=== PATIENT | male | born 1970 | race Caucasian/White ===

== ENCOUNTER 2023-05-10 15:54 | Emergency (ER) | payer SELFPAY ==
--- OUTSIDE RECORDS SUMMARY | 2023-05-10 15:57 | XMS REPORT | Continuity of Care Document ---
:1970 Author Organization [facility] t Address [address] [facility] [address] [place] [address] Care Team Providers Name Role Phone PCP, PATIENT DOES NOT HAVE A Primary Care Physician UnavailAlfredo Servin MD Attending Clinician ALFREDO SALGUERO Attending Clinician Unavailable Cosmo NG, Sendhayden K.HCarmen Attending Clinician Doctor Unassigned, [place] Attending Clinician Unavailable AARON GAFFNEY Attending Clinician Unavailable Aaron Gaffney DO Attending Clinician JEFFERSON GOMEZ Attending Clinician Unavailable JEFFERSON GOMEZ Attending Clinician Unavailable Jefferson Gomez MD Attending Clinician [facility], [facility] Neurology Continuity Attending Clinician Unavail Kiana Staples Attending Clinician ALFREDO SALGUERO Admitting Clinician Unavailable AARON GAFFNEY Admitting Clinician Unavailable JEFFERSON GOMEZ Admitting Clinician Unavailable Payers Payer Name Policy Type Policy Number Effective Date Expiration Date S lexie [employer] [id number] 2017 CARE 00:00:00 [place] [employer]. I H C [id number] 2014 00:00:00 Problems Condition Condition Condition Status Onset Resolution Last Treating Co mments Source Name Details Category Date Date Treatment Clinician Date Encounter Encounter Disease Active Overview: Univers for for 2-12 Formattin ity of screening screening 00:00: [place] of [place] colonoscop colonoscop 00 note Me dical y y might be Branch different from the original. 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[place]ose[place] Allergies, Adverse Reactions, Alerts Allergy Allergy Status Severity Reaction(s) Onset Inactive Treating Comm ents Source Name Type Date Date Clinician NO KNOWN Drug Active Univers ALLERGIE Class ity of S [facility] Social History Social Habit Start Date Stop Date Quantity Comments Source History of tobacco Cigarette Smoker University of use [facility] Gender identity Universit y of [facility] Sexual orientation Univer sity of [facility] Alcohol intake 2023-03-09 2023-03-09 Current University of 00:00:00 00:00:00 non-drinker of [facility] alcohol [place] (finding) Exposure to 2023-01-11 2023-01-21 Not sure [facility] SARS-CoV-2 (event) 00:00:00 14:28:00 [facility] History of Social 2020-01-29 2020-01-29 Univers ity of function 00:00:00 00:00:00 [facility] Tobacco use and 2018-11-17 2018-11-17 Smokeless Universit y of exposure 00:00:00 00:00:00 tobacco non-user [facility] dical Branch Cigarettes smoked 2018-11-17 2018-11-17 Univers ity of current (pack per 00:00:00 00:00:00 ) - Reported Branch Tobacco Comment 2018-11-17 2018-11-17 vapes Universit y of 00:00:00 00:00:00 [facility] Sex Ass[birth year] At [birth year] Universit y of 00:00:00 00:00:00 [facility] Smoking Status Start Date Stop Date Source Unknown if ever smoked Universit y of [facility] Smokes tobacco daily 2018-11-17 00:00:00 [facility]ations Ordered Filled Start Stop Current Ordering Indication Dosage Frequency Signature Comments Components Source Medication Medication Date Date Medication? Clinician (SIG) Name Name losartan 50 Yes 50mg Take 1 Univ ers mg tablet 6-27 tablet by ity o f 14:22: mouth in [place] [address] the Medical morning. 2 Branch tablets in AM losartan 50 Yes 50mg Take 1 Univ ers mg tablet 6-27 tablet by ity o f 14:22: mouth in [place] [address] the Medical morning. 2 Branch tablets in AM losartan 50 0 Yes 50mg Take 1 Univ ers mg tablet 6-27 tablet by ity o f 14:22: mouth in [place] [address] the Medical morning. 2 Branch tablets in AM losartan 50 Yes 50mg Take 1 Univ ers mg tablet 6-27 tablet by ity o f 14:22: mouth in [place] [address] the Medical morning. 2 Branch tablets in AM NaCl 0.9% 1000mL at 999 Uni vers (NS) bolus 01-21 05-11 mL/hr, ity of infusion 19:30: 21:40 1,000 mL, Yves as 1,000 mL 00 :00 IV Medical Infusion, Branch ONCE, 1 dose, On [place] 01/21/23 at 1430, STAT ibuprofen 2018- Yes Take by Unive rs (MOTRIN 0-24 mouth. ity of ORAL) 18:50: [address] ibuprofen 2018- Yes Take by Unive rs (MOTRIN 0-24 mouth. ity of ORAL) 18:50: [address] ibuprofen 2018- Yes Take by Unive rs (MOTRIN 0-24 mouth. ity of ORAL) 18:50: [address] ibuprofen 2018- Yes Take by Unive rs (MOTRIN 0-24 mouth. ity of ORAL) 18:50: [address] ibuprofen 2018- Yes Take by Unive rs (MOTRIN 0-24 mouth. ity of ORAL) 18:50: [address] ibuprofen 2018- Yes Take by Unive rs (MOTRIN 0-24 mouth. ity of ORAL) 18:50: [address] ibuprofen 2019- Yes Take by Unive rs (MOTRIN 0-24 mouth. ity of ORAL) 18:50: [address] ibuprofen 2018-09 Yes Take by Unive rs (MOTRIN 0-24 mouth. ity of ORAL) 18:50: [address] ibuprofen 2018-09 Yes Take by Unive rs (MOTRIN 0-24 mouth. ity of ORAL) 18:50: [address] ibuprofen 2018-09 Yes Take by Unive rs (MOTRIN 0-24 mouth. ity of ORAL) 18:50: [address] ibuprofen 2018-09 Yes Take by Unive rs (MOTRIN 0-24 mouth. ity of ORAL) 18:50: [address] ibuprofen 2018-09 Yes Take by Unive rs (MOTRIN 0-24 mouth. ity of ORAL) 13:50: [address] ibuprofen 2018-09 Yes Take by Unive rs (MOTRIN 0-24 mouth. ity of ORAL) 13:50: [address] ibuprofen 2018-09 Yes Take by Unive rs (MOTRIN 0-24 mouth. ity of ORAL) 13:50: [address] ibuprofen 2018-09 Yes Take by Unive rs (MOTRIN 0-24 mouth. ity of ORAL) 13:50: [address] ibuprofen 2018-09 Yes Take by Unive rs (MOTRIN 0-24 mouth. ity of ORAL) 13:50: [address] ibuprofen 2018-09 Yes Take by Unive rs (MOTRIN 0-24 mouth. ity of ORAL) 13:50: [address] ibuprofen 2018-09 Yes Take by Unive rs (MOTRIN 0-24 mouth. ity of ORAL) 13:50: [address] ibuprofen 2018-09 Yes Take by Unive rs (MOTRIN 0-24 mouth. ity of ORAL) 13:50: [address] escitalopra 2018-09 Yes 10mg Take 10 mg Univers m oxalate 0-17 by mouth ity of 10 mg 00:00: daily. [place] tablet 00 [facility] escitalopra 2018-09 Yes 10mg Take 10 mg Univers m oxalate 0-17 by mouth ity of 10 mg 00:00: daily. [place] tablet 00 [facility] escitalopra 2018-09 Yes 10mg Take 10 mg Univers m oxalate 0-17 by mouth ity of 10 mg 00:00: daily. [place] tablet 00 [facility] escitalopra 2018-09 Yes 10mg Take 10 mg Univers m oxalate 0-17 by mouth ity of 10 mg 00:00: daily. [place] tablet 00 [facility] escitalopra 2018-09 Yes 10mg Take 10 mg Univers m oxalate 0-17 by mouth ity of 10 mg 00:00: daily. [place] tablet 00 [facility] escitalopra 2018-09 Yes 10mg Take 10 mg Univers m oxalate 0-17 by mouth ity of 10 mg 00:00: daily. [place] tablet [facility] escitalopra 2018-09 Yes 10mg Take 10 mg Univers m oxalate 0-17 by mouth ity of 10 mg 00:00: daily. [place] tablet [facility] escitalopra 2018-09 Yes 10mg Take 10 mg Univers m oxalate 0-17 by mouth ity of 10 mg 00:00: daily. [place] tablet [facility] escitalopra 2018-09 Yes 10mg Take 10 mg Univers m oxalate 0-17 by mouth ity of 10 mg 00:00: [facility]. [place] [facility] Take 10 mg Univers m oxalate 0-17 by mouth ity of 10 mg 00:00: daily. [place] tablet [facility] escitalopra 2018-09 Yes 10mg Take 10 mg Univers m oxalate 0-17 by mouth ity of 10 mg 00:00: daily. [place] [facility] Yes 10mg Take 10 mg Univers m oxalate 0-17 by mouth ity of 10 mg 00:00: daily. [place] [facility] Yes 10mg Take 10 mg Univers m oxalate 0-17 by mouth ity of 10 mg 00:00: daily. [place] tablet [facility] escitalopra 2018-09 Yes 10mg Take 10 mg Univers m oxalate 0-17 by mouth ity of 10 mg 00:00: daily. [place] tablet [facility] escitalopra 2018-09 Yes 10mg Take 10 mg Univers m oxalate 0-17 by mouth ity of 10 mg 00:00: daily. [place] tablet 00 [facility] escitalopra 2018-09 Yes 10mg Take 10 mg Univers m oxalate 0-17 by mouth ity of 10 mg 00:00: daily. [place] tablet 00 [facility] escitalopra 2018-09 Yes 10mg Take 10 mg Univers m oxalate 0-17 by mouth ity of 10 mg 00:00: daily. [place] tablet Medical Branch escitalopra 2018-09 Yes 10mg Take 10 mg Univers m oxalate 0-17 by mouth ity of 10 mg 00:00: daily. [place] tablet [facility] Branch escitalopra 2018-09 Yes 10mg Take 10 mg Univers m oxalate 0-17 by mouth ity of 10 mg 00:00: daily. [place] tablet [facility] ibuprofen Yes Take by Unive rs (MOTRIN 3-11 mouth. ity of ORAL) 19:26: [place] [address] Medical Branch FLUoxetine Yes [id number] 80mg Take 2 U nivers 40 mg 9-20 capsules ity of capsule 00:00: by mouth [place] daily. Medical Branch No known No Univers medications ity [facility] No known No [facility] Vital Signs Vital Name Observation Time Observation Value Comments Source Systolic blood 2023-03-09 19:19:00 112 mm[Hg] Univer sity of [facility] Diastolic blood 2023-03-09 19:19:00 69 mm[Hg] Unive rsity of [facility] Heart rate 2023-03-09 19:19:00 104 /min [facility] Body temperature 2023-03-09 19:19:00 36 [place] [facility] Body height 2023-03-09 19:19:00 193 cm [facility] Body weight 2023-03-09 19:19:00 180.532 kg per pt [facility] BMI 2023-03-09 19:19:00 48.45 kg/m2 [facility] Oxygen saturation in 2023-03-09 19:19:00 95 /min [facility] Arterial blood by [facility] Pulse oximetry Branch Systolic blood 2023-01-21 23:00:00 159 mm[Hg] Univer sity of [facility] Diastolic blood 2023-01-21 23:00:00 100 mm[Hg] Unive rsity [facility] Heart rate 2023-01-21 23:00:00 81 /min [facility] Respiratory rate 2023-01-21 23:00:00 14 /min [facility] in 2023-01-21 23:00:00 95 /min University of Arterial blood by [place] [facility] Pulse oximetry Branch Body temperature 2023-01-21 19:29:00 37.17 Chelo Univ ersity of [place] Medical [place] Body height 2023-01-21 19:29:00 193 cm Universi ty of [place] [facility] Body weight 2023-01-21 19:29:00 180.532 kg Universi ty of [place] [facility] BMI 2023-01-21 19:29:00 48.45 kg/m2 Universi ty of [place] [facility] Systolic blood 2020-01-29 16:02:00 141 mm[Hg] Univer sity of pressure [place] [facility] Diastolic blood 2020-01-29 16:02:00 85 mm[Hg] Unive rsity of pressure [place] [facility] Heart rate 2020-01-29 16:02:00 95 /min Universi ty of [place] [facility] [place] Body temperature 2020-01-29 16:02:00 37 Chelo Univ ersity of [place] [facility] Respiratory rate 2020-01-29 16:02:00 20 /min Univ ersity of [place] [facility] [place] Body height 2020-01-29 16:02:00 193 cm Universi ty of [place] [facility] Body weight 2020-01-29 16:02:00 147.589 kg Universi ty of [place] [facility] BMI 2020-01-29 16:02:00 39.61 kg/m2 Universi ty of [place] [facility] Systolic blood 2019-10-09 20:50:00 137 mm[Hg] Univer sity of [facility] [place] [facility] Diastolic blood 2019-10-09 20:50:00 87 mm[Hg] Unive rsity of pressure [place] [facility] Heart rate 2019-10-09 20:48:00 100 /min Universi ty of [place] [facility] Respiratory rate 2019-10-09 20:48:00 18 /min Univ ersity of [place] [facility] Body height 2019-10-09 20:48:00 193 cm Universi ty of [place] [facility] Body weight 2019-10-09 20:48:00 149.233 kg Universi ty of [place] [facility] BMI 2019-10-09 20:48:00 40.05 kg/m2 Universi ty of [place] [facility] Oxygen saturation in 2019-10-09 20:48:00 96 /min University of Arterial blood by [facility] Pulse oximetry Branch Procedures Procedure Date / Time Performing Clinician Source Performed CONSENT/REFUSAL FOR 2023-03-09 18:58:21 Doctor Tay [facility] DIAGNOSIS AND TREATMENT [place] [facility] TROPONIN I 2023-01-21 21:42:00 Singer [facility] XR CHEST 1 VW 2023-01-21 20:24:03 Singer [facility] LIPASE 2023-01-21 19:40:00 Singer [facility] MAGNESIUM 2023-01-21 19:40:00 Singer [facility] TROPONIN I 2023-01-21 19:40:00 Singer [facility] COMP. METABOLIC PANEL 2023-01-21 19:40:00 Aaron Gaffney [facility] ([id number]) Medical [place] CBC WITH DIFF 2023-01-21 19:40:00 Singer [facility] N-TERMINAL PRO-BNP 2023-01-21 19:40:00 Singer Aaron [facility] Medical [place] CONSENT/REFUSAL FOR 2023-01-21 19:23:27 Doctor Tay [facility] DIAGNOSIS AND TREATMENT [place] [facility] AUTHORIZATION FOR RELEASE 2022-07-13 05:01:00 Doctor Tay [facility] OF [facility] [place] [facility] MR BRAIN WO CONTRAST 2019-12-14 14:33:01 Jefferson Gomez [facility] Medical [place] ASSIGNMENT OF BENEFITS 2019-12-14 13:42:18 Doctor Tay [facility] [place] [facility] AUTHORIZATION TO RELEASE 2019-07-19 06:01:00 Doctor Tay [facility] PHI TO [facility] [place] [facility] OP CORRESPONDENCE 2019-05-10 05:01:00 Doctor Jasvir [facility] [place] [facility] BCPC - SUBSEQUENT 2014-10-25 06:01:00 Doctor Tay [facility] ENCOUNTER [place] [facility] PATIENT QUESTIONNAIRE 2013-10-25 06:01:00 Doctor Jasvir [facility] [place] [facility] Encounters Start End Encounter Admission Attending Care Care Encounter Source Date/Time Date/Time Type Type Clinicians Facility Department ID 2023-05-10 2023-05-10 Outpatient SFA SFA [id number] Vik[place] 14:42:57 14:42:57 [id number] F [place] 2023-04-21 2023-04-21 Outpatient [facility] Vikas 14:22:40 14:22:40 [id number] F [place] 2023-04-07 2023-04-07 Outpatient [facility] Vikas 14:20:33 14:20:[id number] [facility] 2023-03-29 2023-03-29 Telephone [facility] [id number] Univers 00:00:00 00:00:00 Alfredo GALVEZ [id number] ity of [place] [id number] Ma dical NAL [address] [place] [address] 2023-03-25 2023-03-25 Outpatient R [facility] [id number] Univers 14:00:00 23:59:00 ALFREDO lopez o [facility] 2023-03-25 2023-03-25 Telephone [facility] [id number] [facility] 00:00:00 00:00:00 Sendhayden GALVEZ [id number] ity of [id number] [phone] Ma dical NAL [address] [place] [address] 2023-03-18 2023-03-18 Outpatient [facility] Vikas 10:55:08 10:55:[id number] [facility] 2023-03-17 2023-03-17 Outpatient [facility] Vikas 14:41:44 14:41:[id number] [facility] 2023-03-09 2023-03-09 Office [facility] [id number] Univers 14:20:00 14:40:00 Visit Alfredo GALVEZ [id number] ity [place] [id number] Ma dical NAL [address] [place] [address] 2023-03-09 2023-03-09 Outpatient R [facility] [id number] Univers 14:20:00 14:20:00 ALFREDO lopez o f [facility] 2023-03-09 2023-03-09 Orders Doctor MEY [id number] Univers 00:00:00 00:00:00 Only Unassigned, ARNALDO [id number] ity of [place] [facility] 4.2.7.2.686 Yves as [phone] [facility] 009 [place] 2023-03-03 2023-03-03 Outpatient SFA [facility] Vikas 11:47:52 11:47:52 [id number] F [place] 2023-02-15 2023-02-15 Outpatient SFA [facility] Vikas 14:42:45 14:42:45 [id number] F [place] 2023-02-10 2023-02-10 Outpatient SFA [facility] Vikas 10:11:18 10:11:18 [id number] F [place] 2023-01-26 2023-01-26 [facility] [id number] Univers 00:00:00 00:00:00 Alfredo GALVEZ 350.1.13.10 ity [facility] 4[place].2.[place] [facility] [id number] Ma dic[address] 2023-01-21 2023-01-21 Emergency X [facility] ERT [id number] Univers 14:25:00 18:17:00 AARON lopez of [facility] 2023-01-21 2023-01-21 Emergency [facility] [id number] Univers 14:25:00 18:17:00 Aaron GALVEZ 350.1.13.10 i ty [facility] [place]2.[place].2.[place] [id number] [facility] 084 [place] 2023-01-21 2023-01-21 Outpatient SFA [facility] [id number] Vikas 13:15:32 13:15:32 [id number] F [place] 2023-01-07 2023-01-07 Outpatient SFA [facility] Vikas 13:34:22 13:34:22 [id number] F [place] 2023-01-062023-01-06 Outpatient SFA [facility] [id number] Vikas 13:21:58 13:21:58 [id number] F Raj 2022-12-30 2022-12-30 Outpatient SFA [facility] Vikas 10:50:22 10:50:22 [id number] F Raj 2022-12-08 2022-12-08 Outpatient JEFFERSON COOK [facility] [id number] Univers 16:20:00 16:20:00 JEFFERSON GOMEZ claire [facility] 2022-07-13 2022-07-13 Orders Doctor MEY [id number] Univers 00:00:00 00:00:00 Only Unassigned, ARNALDO 350.1.13.10 ity of [place] [facility] 4.2.7.2.686 Yves as [phone] [facility] 009 Branch 2020-01-29 2020-01-29 Office Patricia [facility] [id number] Univers 07:57:01 12:07:20 Visit Jefferson Galvez 350.1.13.10 ity [facility] [place] [phone] Ma dical [facility] 092 Branch [facility] 2020-01-29 2020-01-29 Outpatient JEFFERSON COOK [facility] [id number] Univers 11:00:00 11:00:00 JEFFERSON GOMEZ [facility] 2020-01-03 2020-01-03 Letter Clinic, [facility] UNIVERSIT [id number] Univers 00:00:00 00:00:00 (Out) Neurology Y HEALTH 350.1.13.10 ity of [facility] 4.2.7.2.686 [place] [id number] [facility] 092 Branch 2019-12-29 2019-12-29 Telephone Kiana Jesus 1.2.840.114 [id number] Univers 00:00:00 00:00:00 [facility] 350.1.13.10 it y of [place]2.[place] [id number] [facility] 362 Branch 2019-12-14 2019-12-14 Outpatient Mauro JEFFERSON GOMEZ [facility] [id number] Univers 08:45:02 23:59:00 JEFFERSON GOMEZ itclaire [facility] 2019-12-14 2019-12-14 [facility] [id number] Univers 08:45:00 23:59:00 Encounter Jefferson Dick Galvez 350.1.13.10 ity of [place].2.[place] [id number] [facility] 804 Branch 2019-12-14 2019-12-14 Outpatient R JEFFERSON GOMEZ [facility] [id number] Univers 00:00:00 00:00:00 JEFFERSON GOMEZ ananyaclaire [facility] 2019-12-14 2019-12-14 Orders Doctor MEY 1.2.840.114 [id number] Univers 00:00:00 00:00:00 Only Unassigned, ARNALDO 350.1.13.10 ity of [place] [facility] 4.2.7.2.686 Yves as [phone] [facility] 009 Branch 2019-11-01 2019-11-01 [facility]phone [facility] [id number] Univers 00:00:00 00:00:00 Jefferson Galvez 350.1.13.10 ity of [place] Profess[place] [phone] Ma dical nal 092 [facility] 2019-10-09 2019-10-09 Office Patricia [facility] [id number] Univers 14:30:13 15:06:02 Visit Jefferson Galvez 350.1.13.10 ity of [place] Profess[place] [id number] Ma dical nal 092 [facility] 2019-09-27 2019-09-27 Telephone Kiana Jesus 1.2.840.114 [id number] Univers 00:00:00 00:00:00 [facility] 350.1.13.10 it y of [place] [id number] [facility] 362 Branch 2019-07-19 2019-07-19 Orders Doctor MEY 1.2.840.114 [id number] Univers 00:00:00 00:00:00 Only Unassigned, ARNALDO 350.1.13.10 ity of [place] [facility] 4.2.7.2.686 Yves as [phone] [address] 2019-05-10 2019-05-10 Orders Doctor MEY 1.2.840.114 [id number] Univers 00:00:00 00:00:00 Only Unassigned, ARNALDO 350.1.13.10 ity of [place] [facility] 4.2.7.2.686 Yves as [phone] [address] 2014-10-25 2014-10-25 Orders Doctor MEY 1.2.840.114 [id number] Univers 00:00:00 00:00:00 Only Unassigned, ARNALDO 350.1.13.10 ity of [place] [facility] 4.2.7.2.686 Yves as [phone] [address] 2013-10-25 2013-10-25 Orders Doctor MEY Bone.2.840.114 [id number] Univers 00:00:00 00:00:00 Only Unassigned, ARNALDO 350.1.13.10 ity of [place] [facility] 4.2.7.2.686 Yevs as [phone] [address] Results Test Description Test Time Test Comments Results Result Comments Source COMPREHENSIVE METABOLIC PANEL 2023-02-16 05:24:18 Test Item Value Reference Range Interpretation Comme nts GLUCOSE (test code = 2217) 98 MG/DL 70-99 BUN (test code = 2208) 26 MG/DL 6-20 H CREATININE (test code = 0.79 MG/DL 0.80-1.40 L 2213) eGFR (2020 CKD-EPI) (test 106 ML/MIN/1.73 >60 code = 94753) CALC BUN/CREAT (test code = 33 RATIO 6-28 H 2234) SODIUM (test code = 2231) 143 MEQ/L 133-146 POTASSIUM (test code = 4.2 MEQ/L 3.5-5.4 2227) CHLORIDE (test code = 2215) 102 MEQ/L 95-107 CARBON DIOXIDE (test code = 32 MEQ/L 19-31 H 2205) CALCIUM (test code = 2209) 10.0 MG/DL 8.5-10.5 PROTEIN, TOTAL (test code = 7.1 G/DL 6.1-8.3 2228) ALBUMIN (test code = 2201) 4.6 G/DL 3.5-5.2 CALC GLOBULIN (test code = 2.5 G/DL 1.9-3.7 2240) CALC A/G RATIO (test code = 1.8 RATIO 1.0-2.6 2234) BILIRUBIN, TOTAL (test code 0.3 MG/DL See_Comment [Automated message] The = 2207) system which [employer] nerated this result transmit yuriy reference range: <=1.2. T he reference range was not u sed to interpret this result as normal/abnormal . ALKALINE PHOSPHATASE (test 102 U/L 40-121 code = 2204) AST (test code = 2218) 16 U/L 9-50 ALT (test code = 2219) 16 U/L 5-50 UNLE SS OTHERWISE INDICATED, ALL TESTING PER FORMED AT CLINICAL PATHOL [employer], [facility]. [address] [place] [address] LABORATORY DIRE CTOR: CURT BREWER M.D. CLIA NUMBER [id number] CAP ACCREDITATION N O. [id number] MR BRAIN WO [id number] 14:49:49 Stable MRI compared to multiple prior exams without acute intracranialfinding such as acute ischemia, intracranial hemorrhage or mass effect.HISTORY:unexplained spells TECHNIQUE: MRI of the brain was performed without IV contrast. COMPARISON: Multiple prior exams including the most recent from 12/15/2016. FINDINGS: A small T2 hyperintense lesion in the left frontal lobe (8:17) prior exam.This could represent a perivascular space or a subcentimeter neural glialcyst. Punctate foci of T2/FLAIR hyperintensity are noted in the white matter ofthe frontal lobes bilaterally and the left insula, unchanged from the priorMRI. The ventricles and sulci are within normal limits for patient's age. A small CSF intensity is noted in the retrocerebellar location, measuringapproximately 1.8 cm in thickness. This is unchanged from at least04/23/2016. There is no midline shift. The basal cisterns are preserved. There is nodiffusion restriction to suggest an acute infarct. No pathologicalextra-axial fluid collection is seen. No abnormal foci of gradient bloomingis identified. Soft tissue lipoma incidentally identified in the leftsuboccipital region, unchanged from the last MRI. Mamb, Radiant Results Inft User - 12/14/2019 9:50 AM CDTHISTORY:unexplained spells TECHNIQUE: MRI of the brain was performed without IV contrast.COMPARISON: Multiple prior exams including the most recent from 12/15/2016.FINDINGS: A small T2 hyperintense lesion in the left frontal lobe (8:17) prior exam.This could represent a perivascular space or a subcentimeter neural glialcyst.Punctate foci of T2/FLAIR hyperintensity are noted in the white matter ofthe frontal lobes bilaterally and the left insula, unchanged from the priorMRI.The ventricles and sulci are within normal limits for patient's age.A small CSF intensity is noted in the retroce rebellar location, measuringapproximately 1.8 cm in thickness. This is unchanged from at least04/23/2016.There is no midline shift. The basal cisterns are preserved. There is nodiffusion restriction to suggest an acute infarct. No pathologicalextra-axial fluid collection is seen. No abnormal foci of gradient bloomingis identified. Soft tissue lipoma incidentally identified in the leftsuboccipital region, unchanged from the last MRI.IMPRESSIONStable MRI compared to multiple prior exams without acute intracranialfinding such as acute ischemia, intracranial hemorrhage or mass effect.[facility]
--- NOTE | 2023-05-10 17:33 | RAD REPORT ---
EXAM DESCRIPTION: CT - Head Brain Wo Cont - 05/10/2023 5:13 pm CLINICAL HISTORY: SEIZURE Headache, hypertension COMPARISON: HEAD BRAIN W O CONTRAST dated 03/10/2010 TECHNIQUE: All CT scans are performed using dose optimization technique as appropriate and may inclu de automated exposure control or mA/KV adjustment according to patient size. FINDINGS: No intracranial hemorrhage, hydrocephalus or extra-axial fluid collection.No areas of brai n edema or evidence of midline shift. 2 cm mucous retention cyst or polyp left maxillary antrum. Paranasal sinuses and mastoids are otherwi se clear. The calvarium is intact. IMPRESSION: No acute intracranial abnormality.
[2023-05-10 17:55] LABS: Absolute Lymphocytes (CBC) 1.8 K/uL (0.7-4.9); Hematocrit 40.5 % (39.6-49.0); MCV 88.7 fL (80-100); MPV 9.3 fL (7.6-11.3); Platelets 223 thou/uL (152-406); RBC Red Blood Cell Count 4.56 M/uL (4.33-5.43)
--- NOTE | 2023-05-10 17:59 | RAD REPORT ---
EXAM DESCRIPTION: RAD - Chest Single View - 05/10/2023 5:49 pm CLINICAL HISTORY: CHEST PAIN Chest pain. COMPARISON: CHEST SINGLE VIEW dated 03/10/2010 FINDINGS: Portable technique limits examination quality. Mild interstitial pulmonary edema. The heart is mildly enlarged in size. No displaced fractures. IMPRESSION: Mild CHF.
[2023-05-10 18:11] LABS: Magnesium 2.2 mg/dL (1.6-2.4); Potassium 3.6 mEq/L (3.5-5.1); Troponin High Sensitivity 10.2 pg/mL (<58.9)
[2023-05-10] MEDS ORDERED: NA CHLORIDE 0.9% 1,000 ML ONE (20:31)
--- NOTE | 2023-05-10 21:53 | EDPHYS ---
Physician Documentation [facility] Name: Jaron Huff Age: 52 yrs Sex: Male : 1970 Arrival Date: 05/10/2023 Time: 15:54 Bed 12 Private MD: ED Physician Tate Penaloza HPI: 05/11 01:08 This 52 yrs old Male presents to ER via Ambulatory with complaints of Seizure. kb 01:08 The patient presents after having a single isolated seizure. Character of seizure(s): kb Loss of consciousness: the patient did not lose consciousness, Motor activity: generalized. Seizure onset: just prior to arrival. Context: the seizure(s) was witnessed, by family, occurred at an office. Seizure Hx: Original onset: longstanding. Associated injury: The patient did not suffer any apparent associated injury. The patient has experienced similar episodes in the past. The patient has not recently seen a physician. Patient reports he was at his doctor's office for follow-up about blood pressure medicine. States they have been trying to balance out his blood pressure medications to control hypertension. States that he has been keeping a blood pressure log and its been high at times and very low at times. Patient states when he was at his doctor's office he had a seizure which prompted staff to call 911 and bring him here. States he has had some chest pain over the last week.. Historical: - Allergies: 05/10 16:49 No Known Allergies; iw - Immunization history:: Adult Immunizations up to date. - Social history:: Smoking status: . ROS: 05/11 01:05 Constitutional: Negative for fever, chills, and weight loss. kb Cardiovascular: Positive for chest pain, Negative for edema, orthopnea, palpitations, paroxysmal nocturnal dyspnea. Neuro: Positive for seizure activity. All other systems are negative. Exam: 01:05 Constitutional: This is a well developed, well nourished patient who is awake, alert, kb and in no acute distress. Head/Face: Normocephalic, atraumatic. ENT: Moist Mucous membranes Cardiovascular: Regular rate and rhythm with a normal S1 and S2. No gallops, murmurs, or rubs. No pulse deficits. Respiratory: Respirations even and unlabored. No increased work of breathing. Talking in full sentences Abdomen/GI: Soft, non-tender. No distention Skin: Warm, dry with normal turgor. Normal color. MS/ Extremity: Pulses equal, no cyanosis. Neurovascular intact. Full, normal range of motion. Neuro: Awake and alert, GCS 15, oriented to person, place, time, and situation. Moves all extremities. Normal gait. 01:21 ECG was reviewed by the Attending Physician. kb Vital Signs: 05/10 16:48 BP 94 / 68; Pulse 106; Resp 19 S; Pulse Ox 98% on R/A; iw 20:26 BP 106 / 76; Pulse 93; Resp 19; Pulse Ox 97% on R/A; me1 21:30 BP 115 / 79; Pulse 87; Resp 18; Pulse Ox 94% on R/A; me1 21:30 BP 109 / 85; Pulse 94; Resp 20; Pulse Ox 94% on R/A; me1 MDM: 16:51 Patient medically screened. 05/11 01:06 Differential diagnosis: cardiac arrhythmia, seizure, Pseudoseizure, dehydration, kb infection, abnormal EKG. Data reviewed: vital signs, nurses notes. Consideration of Admission/Observation Escalation of care including admission/observation considered. Admission considered for chest pain but serial troponins within normal limits, heart score 2. Patient was also seen by cardiology 2 weeks ago with normal stress test. Patient will follow-up with PCP as well as neurology. 01:07 Historians other than the Patient: EMS: [facility]. Counseling: I had a detailed kb discussion with the patient and/or guardian regarding the historical points, exam findings, and any diagnostic results supporting the discharge/admit diagnosis, lab results, radiology results, the need for outpatient follow up, a family practitioner, a neurologist, to return to the emergency department if symptoms worsen or persist or if there are any questions or concerns that arise at home. 05/10 16:50 Order name: Basic Metabolic Panel; Complete Time: 18:11 kb 05/10 16:50 Order name: CBC with Diff; Complete Time: 18:03 kb 05/10 16:50 Order name: Magnesium; Complete Time: 18:11 kb 05/10 16:50 Order name: NT PRO-BNP; Complete Time: 18:11 kb 05/10 16:50 Order name: Troponin HS; Complete Time: 18:11 kb 05/10 20:29 Order name: Troponin HS; Complete Time: 21:35 kb 05/10 16:50 Order name: XRAY Chest (1 view); Complete Time: 18:03 kb 05/10 16:50 Order name: CT Head Brain wo Cont; Complete Time: 17:36 kb 05/10 16:50 Order name: EKG; Complete Time: 16:50 kb 05/10 16:50 Order name: Cardiac monitoring kb 05/10 16:50 Order name: EKG - Nurse/Tech; Complete Time: 17:52 kb 05/10 16:50 Order name: IV Saline Lock; Complete Time: 17:35 kb 05/10 16:50 Order name: Labs collected and sent; Complete Time: 17:35 kb 05/10 16:50 Order name: O2 Per Protocol; Complete Time: 20:26 kb 05/10 16:50 Order name: O2 Sat Monitoring; Complete Time: 20:26 kb EC:21 Rate is 103 beats/min. Rhythm is regular. QRS [place] is Normal. W[place] interval is normal at kb 168 msec. QRS interval is normal at 78 msec. QT interval is normal at 427 msec. Administered Medications: 05/10 20:26 Drug: NS 0.9% IV 1000 ml Route: IV; Rate: 1000 ml; Site: right hand; [facility] 22:14 Follow up: IV Status: Completed infusion; IV Intake: 1000ml me1 Disposition Summary: 05/10/23 21:53 Discharge Ordered Location: Home kb Condition: Stable kb Diagnosis - Chest pain, unspecified kb - Other seizures kb Followup: kb - With: Emergency Department - When: As needed - Reason: Worsening of condition Followup: kb - With: Private Physician - When: 2 - 3 days - Reason: Recheck today's complaints, Continuance of care, Re-evaluation by your physician Discharge Instructions: - Discharge Summary Sheet kb - Nonspecific Chest Pain, Adult, [id number] kb - Seizure, Adult, [id number] kb Forms: - Medication Reconciliation Form kb - Thank You Letter kb - Antibiotic Education kb - Prescription Opioid Use kb - Patient Portal Instructions kb - Leadership Thank You Letter kb Signatures: Dispatcher [employer] Nery Posadas FNP-C FNP-Jasmyne Moore RN RN Veronica Bowman RN RN ma1
--- NOTE | 2023-05-10 21:53 | ER ---
Nurse's Notes [facility] Name: Jaron Huff Age: 52 yrs Sex: Male : 1970 Arrival Date: 05/10/2023 Time: 15:54 Bed 12 Private MD: Diagnosis: Chest pain, unspecified;Other seizures Presentation: 05/10 16:48 Chief complaint: EMS states: pt was being seen at a clinic for htn and they said he iw started having a pseudoseizure , pt states they have gotten worse over last couple days, he does take medicine for it. Coronavirus screen: At this time, the client does not indicate any symptoms associated with coronavirus-19. Ebola Screen: Patient negative for fever greater than or equal to 101.5 degrees Fahrenheit, and additional compatible Ebola Virus Disease symptoms Patient denies exposure to infectious person. Patient denies travel to an Ebola-affected area in the 21 days before illness onset. No symptoms or risks identified at this time. Initial Sepsis Screen: Does the patient meet any 2 criteria? No. Patient's initial sepsis screen is negative. Does the patient have a suspected source of infection? No. Patient's initial sepsis screen is negative. Risk Assessment: Do you want to hurt yourself or someone else? Patient reports no desire to harm self or others. Onset of symptoms was May 10, 2023. 16:48 Method Of Arrival: Ambulatory iw 16:48 Acuity: ALEKSANDRA 3 iw Historical: - Allergies: 16:49 No Known Allergies; iw - Immunization history:: Adult Immunizations up to date. - Social history:: Smoking status: . Screenin:26 [facility] ED Fall Risk Assessment (Adult) History of falling in the last 3 months, me1 including since admission No falls in past 3 months (0 pts) Confusion or Disorientation No (0 pts) Intoxicated or Sedated No (0 pts) Impaired Gait No (0 pts) Mobility Assist Device Used Yes (1 pt) Altered Elimination No (0 pt) Score/Fall Risk Level 0 - 2 = Low Risk. Abuse screen: Denies threats or abuse. Nutritional screening: No deficits noted. Tuberculosis screening: No symptoms or risk factors identified. Assessment: 20:26 General: Appears comfortable, obese, Behavior is calm, cooperative, appropriate for me1 age. Pain: Denies pain. Neuro: Level of Consciousness is awake, alert, obeys commands, Oriented to person, place, time, situation, Appropriate for age. Cardiovascular: Capillary refill < 3 seconds Patient's skin is warm and dry. Respiratory: Airway is patent Respiratory effort is even, unlabored, Respiratory pattern is regular, symmetrical. Vital Signs: 16:48 BP 94 / 68; Pulse 106; Resp 19 S; Pulse Ox 98% on R/A; iw 20:26 BP 106 / 76; Pulse 93; Resp 19; Pulse Ox 97% on R/A; me1 21:30 BP 115 / 79; Pulse 87; Resp 18; Pulse Ox 94% on R/A; me1 21:30 BP 109 / 85; Pulse 94; Resp 20; Pulse Ox 94% on R/A; me1 ED Course: 16:25 Patient arrived in ED. iw 16:45 Nery Hendrickson FNP-C [facility]. kb 16:45 Tate Penaloza MD is Attending Physician. kb 16:49 Triage completed. iw 16:50 Arm band placed on. iw 17:15 CT Head Brain wo Cont In Process Unspecified. EDMS 17:35 Basic Metabolic Panel Sent. bc6 17:35 CBC with Diff Sent. bc6 17:35 Magnesium Sent. bc6 17:35 NT PRO-BNP Sent. bc6 17:35 Troponin HS Sent. bc6 17:35 Inserted saline lock: 22 gauge in right hand, using aseptic technique. Blood collected. bc6 17:51 XRAY Chest (1 view) In Process Unspecified. EDMS 20:19 Veronica Bowman, RN is Primary Nurse. me1 20:26 Patient has correct armband on for positive identification. Bed in low position. Call me1 light in reach. Side rails up X2. Provided Education on: POC. Verbalized understanding. . 20:26 No provider procedures requiring assistance completed. Flushed right hand. me1 21:03 Troponin HS Sent. me1 22:17 IV discontinued, intact, bleeding controlled, No redness/swelling at site. Pressure me1 dressing applied. Administered Medications: 20:26 Drug: NS 0.9% IV 1000 ml Route: IV; Rate: 1000 ml; Site: right hand; me1 22:14 Follow up: IV Status: Completed infusion; IV Intake: 1000ml me1 Medication: 20:26 VIS not applicable for this client. me1 Intake: 22:14 IV: 1000ml; Total: 1000ml. me1 Outcome: 21:53 Discharge ordered by MD. ruiz 22:18 Discharged to home via wheelchair, with family. me1 22:18 Condition: stable 22:18 Discharge instructions given to patient, Instructed on discharge instructions, follow up and referral plans. Demonstrated understanding of instructions, follow-up care. 22:18 Patient left the ED. me1 Signatures: Dispatcher [employer] EDNery Bañuelos, ELECTION WATCHER-C ELECTION WATCHER-CkJasmyne Orellana, RN RN iw Almita Viramontes 6 Veronica Bowman, BAYLEE RN me1 Corrections: (The following items were deleted from the chart) 16:50 16:48 Pulse 106bpm; Resp 19bpm; Spontaneous; Pulse Ox 98% RA; iw iw
[2023-05-11 00:34] VITALS: BP 109/85; O2SAT 94
--- NOTE | 2023-05-11 16:28 | EKG ---
Test Date: 2023-05-10 Test Time: 17:48:45 Instructor Of Sociology: RAMBO MEASUREMENT RESULTS: Intervals: Rate: 103 NE: 168 QRSD: 78 QT: 326 QTc: 427 [place]ron: P: 34 NE: 168 QRS: 5 T: 46 INTERPRETIVE STATEMENTS: Sinus tachycardia Otherwise normal ECG Compared to ECG 03/14/1995 23:30:00 Sinus rhythm no longer present Electronically Signed On 05-11-23 16:26:00 CDT by [place] Matt
== END 2023-05-10 22:18 | disposition home or self-care (01) ==
LOC: ER 15:54
DX: R07.9 Chest pain, unspecified (principal); R56.9 Unspecified convulsions
CPT/HCPCS: 36415; 70450; 71045; 80048; 83735; 83880; 84484; 85025; 93005; 96360; 96361; 99284; J7030

== ENCOUNTER 2025-06-19 11:06 | Emergency (ER) | payer OTHER ==
--- OUTSIDE RECORDS SUMMARY | 2025-06-19 11:18 | XMS REPORT | Continuity of Care Document ---
Author Name Unknown Address [address] [facility] [address] [place] [address] [facility] Address [address] 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 Name Role Phone Zack Newsome MD Primary Care Physician + [phone] ZACK NEWSOME Attending Clinician Unavailable ZACK NEWSOME Attending Clinician Unavailable Zack Newsome MD Attending Clinician [phone] Ann Marie FLAHERTYSWNica Attending Clinician Unava Bree Quezada Attending Clinician [phone] Ike BUNCHWJanie Attending Clinician Unav Cass Ware Attending Clinician [phone] Lab, Ang - Db Attending Clinician Unavailable ANAYA EMMANUEL Attending Clinician Unavailable Doctor Unassigned, [place] Attending Clinician U Fadi Lino MD Attending Clinician [phone] Daisy Valerio CPhT Attending Clinician Unavail Jackson Malik MD Attending Clinician [phone] FADI POST Attending Clinician UnavailFADI Oquendo Attending Clinician UnavailRene Sutton CPhT Attending Clinician Unavailable LILO BLACKBURN Attending Clinician Unavailab LILO Otto Attending Clinician UnavailLilo Alvarado DO Attending Clinician [phone] JACKSON HIDALGO Attending Clinician Unavailable Emu Attending Clinician Unavailable Anshul Chan, Ana Paula Salas Attending Clinician Unasanjiv Steinberg MD, Keny Attending Clinician [phone] BREE BRICE Attending Clinician Unavailable CAROL OBANDO Attending Clinician Unavailable CAROL OBANDO Attending Clinician Unavailable KAIN DESAI Attending Clinician Unavailable KAIN DESAI Attending Clinician Unavailable Kain Desai MD Attending Clinician + KENY STEINBERG Attending Clinician Unavailable Jerman NG, Chapo Attending Clinician + [phone] Madhu Bolden MD Attending Clinician + [phone] Tanisha NG, Diana Guzman. Attending Clinician [phone] RGEG MCGARRY Attending Clinician Unavailable GREG MCGARRY Attending Clinician Unavailable Greg Mcgarry MD Attending Clinician + [phone] Bree Eugene Attending Clinician [phone] Fadi Post MD Attending Clinician [phone] LUPILLO LANDERS Attending Clinician Unavailable Salima Moreno MD Attending Clinician + [phone] SALIMA MORENO Attending Clinician Unavai lable Lab, Ang - Db Attending Clinician Unavailable Adriana Sunshine Attending Clinician U [facility] Attending Clinician Unavailable Jackson Hidalgo MD Attending Clinician [phone] [facility] Surg Proc Attending Clinician Unavailab Linn Diggs Attending Clinician Unavaila AMY Du Attending Clinician Unavaila Amy Alvarado Attending Clinician [phone] Jefferson Christiansen MD Attending Clinician [phone] Doctor Unassigned, [place] Attending Clinician U addisailable BETHEL ROBERTS Attending Clinician Unavailable BETHEL ROBERTS Attending Clinician Unavailable JEFFERSON CHRISTIANSEN Attending Clinician Unavail able JEFFERSON CHRISTIANSEN Attending Clinician Unavail able CHAVO MARTINEZ Attending Clinician Unavailable Chavo Martinez DO Attending Clinician Pob, [facility] Lab Main Attending Clinician UnavailALFREDO Huizar Attending Clinician Unavailable Alfredo Chávez MD Attending Clinician [phone] MUNA JOYCE Attending Clinician Unavailable Muna Joyce MD Attending Clinician [phone] Cosmo NG, Tereza Harrell Attending Clinician + [phone] Clinic, [facility] Neurology Continuity Attending Clini radha Unavailable Kiana Egan Attending Clinician [phone] KAIN DESAI Admitting Clinician Unavailable FADI POST Admitting Clinician UnavailCHAPO Bowen Admitting Clinician Unavailwon Stoll MD, Chapo Admitting Clinician [phone] GREG MCGARRY Admitting Clinician Unavailable BREE BRICE Admitting Clinician Unavailable AMY GOETZ Admitting Clinician UnavailMUNA Muhammad Admitting Clinician Unavailable ALFREDO CHÁVEZ Admitting Clinician Unavailable CHAVO MARTINEZ Admitting Clinician Unavailable JEFFERSON CHRISTIANSEN Admitting Clinician Unavail able Payers Payer Name Policy Type Policy Number Effective Date Expirati on Date Source [facility] [place] [employer] [id number] 2024 00:00:00 [place] [id number] 2023 00:00:00 2024 00:00:00 [facility] [id number] 2017 00:00:00 Problems Condition Name Condition Details Condition Category Status Onset Date Resolution Date Last Treatment Date Treating Clinician Comments Source Esophageal thickening Esophageal thickening Disease Active 04-04 00:00: 00 [facility] Tubular adenoma of colon Tubular adenoma of colon Disease Active 04-04 00:00: 00 [facility] Uncontroll ed hypertensi on Uncontroll ed hypertensi on Disease Active 2022-09 0- 00:00: 00 [facility] Gait abnormalit y Gait abnormalit y Disease Active 2022-09 0- 00:00: 00 [facility] Morbid obesity Morbid obesity Disease Active 2022-09 0- 00:00: 00 [facility] Bipolar 1 disorder Bipolar 1 disorder Disease Active 2022-09 00:00: 00 [facility] Anxiety and depression Anxiety and depression Disease Active 2022-09 0 00:00: 00 [facility] Encounter for screening colonoscop y Encounter for screening colonoscop y Disease Active 10-25 00:00: 00 Overview: Formattin g of this note might be different from the original. Added automatic ally from request for surgery [id number] [facility] Encounter for screening colonoscop y Encounter for screening colonoscop y Disease Active 10-25 00:00: 00 Overview: Added automatic ally from request for surgery [id number] [facility] Obesity (BMI 30-39.9) Obesity (BMI 30-39.9) Disease Active 12-22 00:00: 00 [facility] Psychogeni c nonepilept ic seizure Psychogeni c nonepilept ic seizure Disease Active 12-21 00:00: 00 [facility] Psychogeni c nonepilept ic seizure Psychogeni c nonepilept ic seizure Disease Active 12-21 00:00: 00 [facility] Allergies, Adverse Reactions, Alerts Allergy Name Allergy Type Status Severity Reaction(s) Onset Date Inactive Date Treating Clinician Comments Source NO KNOWN ALLERGIE S Drug Class Active [facility] Family History Family Member Diagnosis Comments Start Date Stop Date Sourc e Natural father Coronary Heart Disease [facility] Natural father Diabetes [facility] Hy[facility] Maternal grandmother Other - see comments [facility] Maternal uncle Coronary Heart Disease [facility] Social History Social Habit Start Date Stop Date Quantity Comments Source History of tobacco use Cigarette Smoker [facility] Gender identity [facility] Alcoholic beverage intake 2025-01-16 00:00:00 2025-01-16 00:00:00 Current non-drinker of alcohol (finding) [facility] History of Social function 2024-07-18 00:00:00 2024-07-18 00:00:00 [facility] Tobacco use and exposure 2024-02-16 00:00:00 2024-02-16 00:00:00 Smokeless tobacco non-user [facility] Alcohol intake 2024-01-11 00:00:00 2024-01-11 00:00:00 Current non-drinker of alcohol (finding) [facility] Cigarettes smoked current (pack per day) - Reported 2023-06-17 00:00:00 2023-06-17 00:00:00 [facility] Tobacco Comment 2023-06-17 00:00:00 2023-06-17 00:00:00 vapes [facility] Exposure to SARS-CoV-2 (event) 2023-01-11 00:00:00 2023-01-21 14:28:00 Not sure [facility] Sex assigned at 1970 00:00:00 1970 00:00:00 [facility] Smoking Status Start Date Stop Date Source Unknown if ever smoked [facility] Ex-smoker 2024-02-16 00:00:00 2024-02-16 00:00[facility] daily 2015-10-14 00:00:00 [facility] Medications Ordered Medication Name Filled Medication Name Start Date Stop Date Current Medication? Ordering Clinician Indication Dosage Frequency Signature (SIG) Comments Components Source amLODIPine (NORVASC) 5 mg tablet 06-11 00:00: 00 Yes [id number] 5mg Take 1 tablet by mouth in the morning. [facility] pantoprazol e 40 mg EC tablet 05-28 00:00: 00 Yes [id number] 40mg Take 1 tablet by mouth in the morning. [facility] methocarbam oL 500 mg tablet 02-16 00:00: 00 Yes [id number] 500mg Take 1 tablet by mouth 3 times daily as needed for Other (muscle spasm in the lower back). [facility] sulfamethox azole-trime thoprim (BACTRIM DS) 800-160 mg per tablet 1 tablet 01-16 17:00: 00 01-16 17:10 :00 No 1{tbl} 1 tablet, Oral, ONCE, 1 dose, On Wed01/16/25 at 1200, BRIANNA, Reason for Anti-Infec tive: Documented Infection, Documented Infection Site: Urine, Duration of therapy: Once (ED) [facility] NaCl 0.9% (NS) bolus infusion 1,000 mL 01-16 15:00: 00 01-16 17:10 :00 No 1000mL at 999 mL/hr, 1,000 mL, IV Infusion, ONCE, 1 dose, On Wed01/16/25 at 1000, BRIANNA [facility] sulfamethox azole-trime thoprim 800-160 mg per tablet 01-16 00:00: 00 01-22 04:59 :00 No [id number] 1{tbl} Take 1 tablet by mouth in the morning and 1 tablet in the evening. Do all this for 5 days. [facility] betamethaso ne dipropionat e 0.05 % ointment 01-09 00:00: 00 01-17 04:59 :00 No [id number] Apply to area(s) daily for 7 days. [facility] sodium hyaluronate , viscosup, 30 mg/2 mL injection sodium hyaluronate , viscosup, 30 mg/2 mL injection 01-08 00:00: 00 01-11 04:59 :00 No 30mg 2 mL by Intra-romana cular route in each knees weekly for 3 week [facility] sodium hyaluronate , viscosup, (ORTHOVISC) 30 mg/2 mL injection [id number] 9493-0 4-24 00:00: 00 01-10 04:59 :00 No 15mg 1 mL by Intra-romana cular route once now for 1 dose. [facility] methocarbam oL 500 mg tablet 12-18 00:00: 00 Yes [id number] 500mg Take 1 tablet by mouth 3 (three) times daily as needed for Other (muscle spasm in the lower back). [facility] PANTOPRAZOL E 40 mg EC tablet 12-18 00:00: 00 05-28 00:00 :00 No [id number] 40mg TAKE 1 TABLET BY MOUTH IN THE MORNING AND 1 IN THE EVENING [facility] pantoprazol e 40 mg EC tablet 12-15 00:00: 00 12-18 00:00 :00 No [id number] 40mg Take 1 tablet by mouth in the morning and 1 tablet in the evening. [facility] sodium hyaluronate , viscosup, (EUFLEXXA) 10 mg/mL(mw 2.4 -3.6 million) Syrg [id number] 3-31 00:00: 00 02-04 04:59 :00 No [id number] 9109 10mg Inject 10 mg by Intra-romana cular route weekly for 3 doses. [facility] sodium hyaluronate , viscosup, (EUFLEXXA) 10 mg/mL(mw 2.4 -3.6 million) Syrg - 00:00: 00 12-13 04:59 :00 No [id number] 9109 2mL 2 mL by Intra-romana cular route to the left knee 1 time for 1 dose. [facility] escitalopra m oxalate 20 mg tablet 10-19 00:00: 00 Yes [id number] 20mg Take 1 tablet by mouth in the morning. [facility] propranoloL 20 mg tablet - 00:00: 00 Yes [id number] 20mg Take 1 tablet by mouth in the morning and 1 tablet at noon and 1 tablet in the evening. [facility] losartan 50 mg tablet - 00:00: 00 Yes [id number] 100mg Take 2 tablets by mouth in the morning. [facility] tamsulosin (FLOMAX) 0.4 mg 24 hr capsule - 00:00: 00 Yes [id number] 01 .4mg Take 1 capsule by mouth at bedtime. [facility] promethazin e-dextromet horphan 6.25-15 mg/5 mL syrup 2- 00:00: 00 Yes [id number] 5mL Take 5 mL by mouth 4 (four) times daily as needed for Cough. [facility] amLODIPine (NORVASC) 5 mg tablet 2- 00:00: 00 06-10 00:00 :00 No [id number] 5mg Take 1 tablet by mouth in the morning. [facility] amoxicillin -clavulanat e (AUGMENTIN) 875-125 mg per tablet - 00:00: 10-27 05:59 :00 No [id number] 1{tbl} Take 1 tablet by mouth in the morning and 1 tablet in the evening. Do all this for 7 days. [facility] dicyclomine 20 mg tablet 2023-09 00:00: 00 10-19 00:00 :00 No [id number] 20mg Take 1 tablet by mouth 4 (four) times daily as needed for Abdominal pain. [facility] triamcinolo ne acetonide (KENALOG) injection 40 mg 2023-09 15:30: 00 07-18 14:20 :00 No [id number] 40mg 40 mg, Intramuscu lar, ONCE, 1 dose, On Wed08/02/24 at 0930, Routine [facility] triamcinolo ne acetonide (KENALOG) injection 40 mg 2023-09 21:30: 00 07-25 20:25 :00 No [id number] 40mg 40 mg, Intramuscu lar, ONCE, 1 dose, On Wed07/25/24 at 1530, Routine [facility] triamcinolo ne acetonide (KENALOG) injection 40 mg 2023-09 17:15: 00 07-19 05:14 :00 No [id number] 40mg [facility] dicyclomine 20 mg tablet 2023-09 00:00: 00 08-30 00:00 :00 No [id number] 20mg Take 1 tablet by mouth 4 (four) times daily as needed for Abdominal pain. [facility] dicyclomine 20 mg tablet 9-16 00:00: 00 07-05 00:00 :00 No [id number] 20mg Take 1 tablet by mouth 4 (four) times daily as needed for Abdominal pain. [facility] dicyclomine 20 mg tablet 04-20 00:00: 00 05-27 00:00 :00 No [id number] 20mg Take 1 tablet by mouth 4 (four) times daily as needed for Abdominal pain. [facility] methocarbam oL 500 mg tablet 04-19 00:00: 00 12-17 00:00 :00 No [id number] 500mg Take 1 tablet by mouth 3 (three) times daily as needed for Other (muscle spasm in the lower back). [facility] propranoloL 20 mg tablet 04-05 00:00: 00 10-19 00:00 :00 No [id number] 20mg Take 1 tablet by mouth in the morning and 1 tablet at noon and 1 tablet in the evening. [facility] peg-electro lyte soln 236-22.74-6 .74 -5.86 gram solution 04-04 00:00: 00 Yes [id number] Take as directed before colonoscop y [facility] pantoprazol e 40 mg EC tablet 04-04 00:00: 00 12-15 00:00 :00 No [id number] 40mg Take 1 tablet by mouth in the morning and 1 tablet in the evening. [facility] triamcinolo ne acetonide (KENALOG) injection 40 mg 03-30 16:00: 00 03-30 15:01 :00 No 40mg 40 mg, Intramuscu lar, ONCE, 1 dose, On Wed03/30/24 at 1100, Routine [facility] escitalopra m oxalate 20 mg tablet 03-09 00:00: 00 10-19 00:00 :00 No [id number] 20mg Take 1 tablet by mouth in the morning. [facility] losartan 50 mg tablet 03-09 00:00: 00 10-19 00:00 :00 No [id number] 100mg Take 2 tablets by mouth in the morning. [facility] dicyclomine 20 mg tablet 6-27 00:00: 00 04-19 00:00 :00 No [id number] 20mg Take 1 tablet by mouth 4 (four) times daily as needed for Abdominal pain. [facility] omeprazole 40 mg capsule - 00:00: 00 04-04 00:00 :00 No [id number] 40mg Take 1 capsule by mouth in the morning. [facility] losartan 50 mg tablet 5- 00:00: 00 03-09 00:00 :00 No [id number] 100mg Take 2 tablets by mouth in the morning. [facility] propranoloL 60 mg 24 hr capsule 01-02 00:00: 00 04-05 00:00 :00 No [id number] 60mg Take 1 capsule by mouth in the morning. [facility] fludeoxyglu cose F-18 (FDG) injection 20 millicurie 11-30 15:30: 00 11-30 15:19 :00 No [id number] 20mCi 20 millicurie , Intravenou s, ONCE, 1 dose, On Wed12/01/23 at 1030, Routine [facility] iopamidol (ISOVUE 370-500 mL) injection 80 mL 11-29 21:45: 00 11-29 20:49 :00 No [id number] 80mL 80 mL, Intravenou s, ONCE, 1 dose, On Wed11/30/23 at 1645, Routine [facility] propranoloL 60 mg 24 hr capsule 11-16 00:00: 00 01-02 00:00 :00 No [id number] 60mg Take 1 capsule by mouth in the morning. [facility] tc 99m-medrona te (DRAXIMAGE MDP-25) injection 25.9 millicurie 2-23 18:15: 00 11-05 18:10 :00 No [id number] 25.9mCi 25.9 millicurie , Intravenou s, ONCE, 1 dose, On Wed11/05/23 at 1215, Routine [facility] gadobenate dimeglumine (MULTIHANCE -20 mL) injection 0.2 mL/kg 11-02 21:45: 00 11-02 21:36 :00 No [id number] .2mL/kg 0.2 mL/kg, Intravenou s, ONCE, 1 dose, On Wed11/02/23 at 1545, Routine [facility] ibuprofen (MOTRIN ORAL) 10-13 13:59: 22 Yes Take by mouth. [facility] iopamidol (ISOVUE 370-500 mL) injection 120 mL 10-12 00:00: 00 10-11 23:13 :00 No [id number] 120mL 120 mL, Intravenou s, ONCE, 1 dose, On Wed10/11/23 at 1800, Routine [facility] cefUROXime 250 mg tablet 10-06 00:00: 00 10-12 05:59 :00 No [id number] 250mg Take 1 tablet by mouth in the morning and 1 tablet in the evening. Do all this for 5 days. [facility] levETIRAcet am (KEPPRA) 2,000 mg in NaCl 0.9% (NS) 250 mL IV infusion 09-17 23:45: 00 09-17 23:47 :00 No 2000mg 2,000 mg, IV Piggyback, ONCE, 1 dose, On Wed09/17/23 at 1745, 250 mL [facility] ibuprofen (MOTRIN ORAL) 09-17 14:57: 55 Yes Take by mouth. [facility] tamsulosin (FLOMAX) 0.4 mg 24 hr capsule 09-17 00:00: 00 10-19 00:00 :00 No [id number] 01 .4mg Take 1 capsule by mouth at bedtime. [facility] levETIRAcet am (KEPPRA) 500 mg tablet 09-17 00:00: 00 10-18 05:59 :00 No [id number] 500mg Take 1 tablet by mouth in the morning and 1 tablet in the evening. Do all this for 30 days. [facility] cephALEXin (KEFLEX) 500 mg capsule 09-17 00:00: 00 09-25 05:59 :00 No [id number] 500mg Take 1 capsule by mouth in the morning and 1 capsule at noon and 1 capsule in the evening. Do all this for 7 days. [facility] guaifenesin (ROBAFEN ORAL) 09-16 15:22: 17 09-16 00:00 :00 No 500mg Take 500 mg by mouth in the morning and 500 mg at noon and 500 mg in the evening. [facility] losartan 50 mg tablet 2022-09 10:05: 47 08-19 00:00 :00 No 50mg Take 1 tablet by mouth in the morning. 2 tablets in AM [facility] polyethylen e glycol 3350 17 gram/dose powder 2022-09 00:00: 00 Yes [id number] 17g Take 17 g by mouth 2 (two) times daily as needed for Constipati on. [facility] amLODIPine (NORVASC) 5 mg tablet 2022-09 00:00: 00 10-19 00:00 :00 No [id number] 5mg Take 1 tablet by mouth in the morning. [facility] methocarbam oL 500 mg tablet 2022-09 00:00: 00 04-18 00:00 :00 No [id number] 500mg Take 1 tablet by mouth 3 (three) times daily as needed for Other (muscle spasm in the lower back). [facility] losartan 50 mg tablet 2022-09 00:00: 00 02-06 00:00 :00 No [id number] 100mg Take 2 tablets by mouth in the morning. 2 tablets in AM [facility] escitalopra m oxalate 20 mg tablet 2022-09 0 00:00: 00 03-09 00:00 :00 No [id number] 20mg Take 1 tablet by mouth in the morning. [facility] propranoloL 60 mg 24 hr capsule 2022-09 00:00: 00 11-15 00:00 :00 No [id number] 60mg Take 1 capsule by mouth in the morning. [facility] levETIRAcet am (KEPPRA) 500 mg tablet 2022-09 00:00: 00 06-17 00:00 :00 No 500mg Take 1 tablet by mouth in the morning and 1 tablet in the evening. [facility] gabapentin (NEURONTIN) 100 mg capsule 2022-09 00:00: 00 Yes [id number] 100mg Take 1 capsule by mouth in the morning and 1 capsule at noon and 1 capsule in the evening. [facility] propranoloL 20 mg tablet 2022-09 00:00: 00 07-13 00:00 :00 No [id number] 20mg Take 1 tablet by mouth in the morning and 1 tablet in the evening. [facility] escitalopra m oxalate (LEXAPRO) 10 mg tablet 2022-09 00:00: 00 07-13 00:00 :00 No [id number] 10mg Take 1 tablet by mouth at bedtime. [facility] losartan 50 mg tablet 03-09 14:22: 24 Yes 50mg Take 1 tablet by mouth in the morning. 2 tablets in AM [facility] NaCl 0.9% (NS) bolus infusion 1,000 mL 01-21 19:30: 00 01-21 21:40 :00 No 1000mL at 999 mL/hr, 1,000 mL, IV Infusion, ONCE, 1 dose, On [place] 01/21/23 at 1430, STAT [facility] ibuprofen (MOTRIN ORAL) 2018-09 0 18:50: 55 Yes Take by mouth. [facility] ibuprofen (MOTRIN ORAL) 2018-09 13:50: 55 Yes Take by mouth. [facility] escitalopra m oxalate 10 mg tablet 2018-09 00:00: 00 07-13 00:00 :00 No 10mg Take 10 mg by mouth daily. [facility] ibuprofen (MOTRIN ORAL) 3-11 19:26: 24 Yes Take by mouth. [facility] FLUoxetine 40 mg capsule 06-02 00:00: 00 Yes [id number] 80mg Take 2 capsules by mouth daily. [facility] No known medications No Un tami [facility] No known medications No Un tami [facility] Immunizations Ordered Immunization Name Filled Immunization Name Date Status Comments Source Pneumococcal 20 Conjugate, PCV20 (Prevnar 20) 2024-10-19 00:00:00 Completed [facility] Vital Signs Vital Name Observation Time Observation Value Comments S ource Systolic blood pressure 2025-05-28 19:46:00 127 mm[Hg] [facility] Diastolic blood pressure 2025-05-28 19:46:00 82 mm[Hg] [facility] Heart rate 2025-05-28 19:46:00 81 /min [facility] Body temperature 2025-05-28 19:46:00 36.67 Chelo [facility] Body height 2025-05-28 19:46:00 193 cm [facility] Body weight 2025-05-28 19:46:00 185.975 kg [facility] BMI 2025-05-28 19:46:00 49.91 kg/m2 [facility] Oxygen saturation in Arterial blood by Pulse oximetry 2025-05-28 19:46:00 94 /min [facility] Systolic blood pressure 2025-03-07 20:21:00 168 mm[Hg] [facility] Diastolic blood pressure 2025-03-07 20:21:00 107 mm[Hg] [facility] Heart rate 2025-03-07 20:12:00 101 /min [facility] Body height 2025-03-07 20:12:00 193 cm [facility] Body weight 2025-03-07 20:12:00 186.065 kg [facility] BMI 2025-03-07 20:12:00 49.93 kg/m2 [facility] Oxygen saturation in Arterial blood by Pulse oximetry 2025-03-07 20:12:00 96 /min [facility] Systolic blood pressure 2025-01-16 17:20:00 148 mm[Hg] [facility] Diastolic blood pressure 2025-01-16 17:20:00 93 mm[Hg] [facility] Heart rate 2025-01-16 17:20:00 89 /min [facility] Body temperature 2025-01-16 17:20:00 37.06 Chelo [facility] Respiratory rate 2025-01-16 17:20:00 17 /min [facility] Oxygen saturation in Arterial blood by Pulse oximetry 2025-01-16 17:20:00 96 /min [facility] Body height 2025-01-16 14:08:00 193 cm [facility] Body weight 2025-01-16 14:08:00 185.975 kg [facility] BMI 2025-01-16 14:08:00 49.91 kg/m2 [facility] Systolic blood pressure 2025-01-09 20:52:00 122 mm[Hg] [facility] Diastolic blood pressure 2025-01-09 20:52:00 74 mm[Hg] [facility] Heart rate 2025-01-09 20:52:00 90 /min [facility] Respiratory rate 2025-01-09 20:52:00 22 /min [facility] Body height 2025-01-09 20:52:00 193 cm per patient [facility] Body weight 2025-01-09 20:52:00 185.975 kg [facility] BMI 2025-01-09 20:52:00 49.91 kg/m2 [facility] Oxygen saturation in Arterial blood by Pulse oximetry 2025-01-09 20:52:00 95 /min [facility] Systolic blood pressure 2024-10-26 20:45:00 135 mm[Hg] [facility] Diastolic blood pressure 2024-10-26 20:45:00 84 mm[Hg] [facility] Heart rate 2024-10-26 20:45:00 96 /min [facility] Body temperature 2024-10-26 20:45:00 36.72 Chelo [facility] Body height 2024-10-26 20:45:00 193 cm [facility] Body weight 2024-10-26 20:45:00 189.558 kg [facility] BMI 2024-10-26 20:45:00 50.87 kg/m2 [facility] Oxygen saturation in Arterial blood by Pulse oximetry 2024-10-26 20:45:00 99 /min [facility] [facility] Systolic blood pressure 2024-10-19 20:53:00 169 mm[Hg] [facility] Diastolic blood pressure 2024-10-19 20:53:00 111 mm[Hg] [facility] Heart rate 2024-10-19 20:53:00 104 /min [facility] Body height 2024-10-19 20:53:00 193 cm [facility] Body weight 2024-10-19 20:53:00 188.197 kg [facility] BMI 2024-10-19 20:53:00 50.50 kg/m2 [facility] Oxygen saturation in Arterial blood by Pulse oximetry 2024-10-19 20:53:00 96 /min [facility] Systolic blood pressure 2024 22:00:00 160 mm[Hg] [facility] Diastolic blood pressure 2024 22:00:00 82 mm[Hg] [facility] Heart rate 2024 22:00:00 85 /min [facility] Respiratory rate 2024 22:00:00 12 /min [facility] Oxygen saturation in Arterial blood by Pulse oximetry 2024 22:00:00 95 /min [facility] Body temperature 2024 21:00:00 37 Chelo [facility] Body height 2024 19:43:00 193 cm [facility] Body weight 2024 19:43:00 181.439 kg [facility] BMI 2024 19:43:00 48.69 kg/m2 [facility] Systolic blood pressure 2024 19:37:00 142 mm[Hg] [facility] Diastolic blood pressure 2024 19:37:00 93 mm[Hg] [facility] Heart rate 2024 19:37:00 101 /min [facility] Oxygen saturation in Arterial blood by Pulse oximetry 2024 19:37:00 97 /min [facility] Systolic blood pressure 2024-07-18 15:47:00 153 mm[Hg] [facility] Diastolic blood pressure 2024-07-18 15:47:00 97 mm[Hg] [facility] Heart rate 2024-07-18 15:47:00 99 /min [facility] Body height 2024-07-18 15:46:00 193 cm [facility] Body weight 2024-07-18 15:46:00 185.975 kg [facility] BMI 2024-07-18 15:46:00 49.91 kg/m2 [facility] Oxygen saturation in Arterial blood by Pulse oximetry 2024-07-18 15:46:00 95 /min [facility] Systolic blood pressure 2024-07-17 16:16:00 154 mm[Hg] [facility] Diastolic blood pressure 2024-07-17 16:16:00 98 mm[Hg] [facility] Heart rate 2024-07-17 16:16:00 83 /min [facility] Body temperature 2024-07-17 16:16:00 36.89 Chelo [facility] Respiratory rate 2024-07-17 16:16:00 17 /min [facility] Body height 2024-07-17 16:16:00 193 cm [facility] Oxygen saturation in Arterial blood by Pulse oximetry 2024-07-17 16:16:00 95 /min [facility] Systolic blood pressure 2024-04-04 15:07:00 163 mm[Hg] Provider Notified [facility] Diastolic blood pressure 2024-04-04 15:07:00 106 mm[Hg] Provider Notified [facility] Heart rate 2024-04-04 15:07:00 83 /min [facility] Body temperature 2024-04-04 15:06:00 36.56 Chelo [facility] Respiratory rate 2024-04-04 15:06:00 18 /min [facility] Body height 2024-04-04 15:06:00 193 cm [facility] Body weight 2024-04-04 15:06:00 178.037 kg [facility] BMI 2024-04-04 15:06:00 47.78 kg/m2 [facility] Oxygen saturation in Arterial blood by Pulse oximetry 2024-04-04 15:06:00 98 /min [facility] Body height 2024-03-30 14:24:00 193 cm [facility] Body weight 2024-03-30 14:24:00 179.624 kg [facility] BMI 2024-03-30 14:24:00 48.20 kg/m2 [facility] Systolic blood pressure 2024-03-27 16:24:00 75 mm[Hg] [facility] Diastolic blood pressure 2024-03-27 16:24:00 53 mm[Hg] [facility] Heart rate 2024-03-27 16:23:00 118 /min [facility] Body temperature 2024-03-27 16:23:00 37 Chelo [facility] Body height 2024-03-27 16:23:00 185.4 cm [facility] Body weight 2024-03-27 16:23:00 175.996 kg [facility] BMI 2024-03-27 16:23:00 51.19 kg/m2 [facility] Systolic blood pressure 2024-03-09 19:37:00 118 mm[Hg] [facility] Diastolic blood pressure 2024-03-09 19:37:00 73 mm[Hg] [facility] Heart rate 2024-03-09 19:37:00 89 /min [facility] Respiratory rate 2024-03-09 19:37:00 20 /min [facility] Body height 2024-03-09 19:37:00 193 cm [facility] Body weight 2024-03-09 19:37:00 180.758 kg [facility] BMI 2024-03-09 19:37:00 48.51 kg/m2 [facility] Oxygen saturation in Arterial blood by Pulse oximetry 2024-03-09 19:37:00 98 /min [facility] Systolic blood pressure 2024-02-16 19:50:00 100 mm[Hg] [facility] Diastolic blood pressure 2024-02-16 19:50:00 66 mm[Hg] [facility] Heart rate 2024-02-16 19:50:00 97 /min [facility] Respiratory rate 2024-02-16 19:50:00 18 /min [facility] Body height 2024-02-16 19:50:00 168.9 cm [facility] Body weight 2024-02-16 19:50:00 179.352 kg [facility] BMI 2024-02-16 19:50:00 62.86 kg/m2 [facility] Oxygen saturation in Arterial blood by Pulse oximetry 2024-02-16 19:50:00 95 /min [facility] Systolic blood pressure 2024-02-02 14:53:00 159 mm[Hg] has not taken morning meds [facility] Diastolic blood pressure 2024-02-02 14:53:00 90 mm[Hg] has not taken morning meds [facility] Heart rate 2024-02-02 14:53:00 87 /min [facility] Body temperature 2024-02-02 14:53:00 36.72 Chelo [facility] Respiratory rate 2024-02-02 14:53:00 18 /min [facility] Body height 2024-02-02 14:53:00 193 cm [facility] Body weight 2024-02-02 14:53:00 191.872 kg [facility] BMI 2024-02-02 14:53:00 51.49 kg/m2 [facility] Oxygen saturation in Arterial blood by Pulse oximetry 2024-02-02 14:53:00 98 /min [facility] Systolic blood pressure 2024-01-25 18:03:00 146 mm[Hg] [facility] Diastolic blood pressure 2024-01-25 18:03:00 101 mm[Hg] [facility] Heart rate 2024-01-25 18:03:00 84 /min [facility] Body temperature 2024-01-25 18:03:00 36.33 Chelo [facility] Respiratory rate 2024-01-25 18:03:00 18 /min [facility] Oxygen saturation in Arterial blood by Pulse oximetry 2024-01-25 18:03:00 95 /min [facility] Systolic blood pressure 2024-01-11 15:48:00 128 mm[Hg] [facility] Diastolic blood pressure 2024-01-11 15:48:00 83 mm[Hg] [facility] Heart rate 2024-01-11 15:48:00 91 /min [facility] Body temperature 2024-01-11 15:48:00 36.56 Chelo [facility] Respiratory rate 2024-01-11 15:48:00 18 /min [facility] Body height 2024-01-11 15:48:00 188 cm [facility] Body weight 2024-01-11 15:48:00 189.876 kg [facility] BMI 2024-01-11 15:48:00 53.75 kg/m2 [facility] Oxygen saturation in Arterial blood by Pulse oximetry 2024-01-11 15:48:00 96 /min [facility] Systolic blood pressure 2023-10-25 18:42:00 141 mm[Hg] [facility] Diastolic blood pressure 2023-10-25 18:42:00 87 mm[Hg] [facility] Heart rate 2023-10-25 18:42:00 79 /min [facility] Body height 2023-10-25 18:42:00 193 cm [facility] Body weight 2023-10-25 18:42:00 186.111 kg [facility] BMI 2023-10-25 18:42:00 49.94 kg/m2 [facility] Oxygen saturation in Arterial blood by Pulse oximetry 2023-10-25 18:42:00 98 /min [facility] Systolic blood pressure 2023-10-13 19:49:00 119 mm[Hg] [facility] Diastolic blood pressure 2023-10-13 19:49:00 69 mm[Hg] [facility] Heart rate 2023-10-13 19:49:00 85 /min [facility] Body temperature 2023-10-13 19:49:00 35.94 Chelo [facility] Respiratory rate 2023-10-13 19:49:00 20 /min [facility] Body height 2023-10-13 19:49:00 193 cm [facility] Oxygen saturation in Arterial blood by Pulse oximetry 2023-10-13 19:49:00 95 /min [facility] Systolic blood pressure 2023-09-23 17:08:00 104 mm[Hg] [facility] Diastolic blood pressure 2023-09-23 17:08:00 67 mm[Hg] [facility] Heart rate 2023-09-23 17:08:00 87 /min [facility] Body temperature 2023-09-23 17:08:00 37.06 Chelo [facility] Respiratory rate 2023-09-23 17:08:00 18 /min [facility] Body weight 2023-09-23 17:08:00 186.428 kg [facility] BMI 2023-09-23 17:08:00 50.03 kg/m2 [facility] Oxygen saturation in Arterial blood by Pulse oximetry 2023-09-23 17:08:00 94 /min [facility] Systolic blood pressure 2023-09-18 01:00:00 114 mm[Hg] [facility] Diastolic blood pressure 2023-09-18 01:00:00 71 mm[Hg] [facility] Heart rate 2023-09-18 01:00:00 73 /min [facility] Body temperature 2023-09-18 01:00:00 36.94 Chelo [facility] Respiratory rate 2023-09-18 01:00:00 18 /min [facility] Oxygen saturation in Arterial blood by Pulse oximetry 2023-09-18 01:00:00 97 /min [facility] Body height 2023-09-17 23:19:00 193 cm [facility] Body weight 2023-09-17 23:19:00 186.882 kg [facility] BMI 2023-09-17 23:19:00 50.15 kg/m2 [facility] Systolic blood pressure 2023-09-17 20:50:00 111 mm[Hg] [facility] Diastolic blood pressure 2023-09-17 20:50:00 71 mm[Hg] [facility] Heart rate 2023-09-17 20:50:00 95 /min [facility] Body temperature 2023-09-17 20:50:00 36.72 Chelo [facility] Respiratory rate 2023-09-17 20:50:00 18 /min [facility] Body height 2023-09-17 20:50:00 193 cm [facility] Body weight 2023-09-17 20:50:00 187.336 kg [facility] BMI 2023-09-17 20:50:00 50.27 kg/m2 [facility] Systolic blood pressure 2023-09-16 21:26:00 93 mm[Hg] [facility] Diastolic blood pressure 2023-09-16 21:26:00 54 mm[Hg] [facility] Heart rate 2023-09-16 21:26:00 95 /min [facility] Respiratory rate 2023-09-16 21:26:00 18 /min [facility] Body height 2023-09-16 21:26:00 193 cm [facility] Body weight 2023-09-16 21:26:00 186.428 kg [facility] BMI 2023-09-16 21:26:00 50.03 kg/m2 [facility] Oxygen saturation in Arterial blood by Pulse oximetry 2023-09-16 21:26:00 95 /min [facility] Systolic blood pressure 2023-08-19 15:57:00 148 mm[Hg] [facility] Diastolic blood pressure 2023-08-19 15:57:00 103 mm[Hg] [facility] Heart rate 2023-08-19 15:57:00 93 /min [facility] Body temperature 2023-08-19 15:57:00 36.39 Chelo [facility] Respiratory rate 2023-08-19 15:57:00 20 /min [facility] Body weight 2023-08-19 15:57:00 186.882 kg [facility] BMI 2023-08-19 15:57:00 50.15 kg/m2 [facility] Oxygen saturation in Arterial blood by Pulse oximetry 2023-08-19 15:57:00 98 /min [facility] Systolic blood pressure 2023-07-13 19:47:00 188 mm[Hg] [facility] Diastolic blood pressure 2023-07-13 19:47:00 97 mm[Hg] [facility] Heart rate 2023-07-13 19:47:00 100 /min [facility] Respiratory rate 2023-07-13 19:46:00 16 /min [facility] Body height 2023-07-13 19:46:00 193 cm [facility] Oxygen saturation in Arterial blood by Pulse oximetry 2023-07-13 19:46:00 94 /min [facility] Systolic blood pressure 2023-06-17 13:23:00 135 mm[Hg] [facility] Diastolic blood pressure 2023-06-17 13:23:00 90 mm[Hg] [facility] Heart rate 2023-06-17 13:23:00 101 /min [facility] Body temperature 2023-06-17 13:23:00 36.28 Chelo [facility] Respiratory rate 2023-06-17 13:23:00 20 /min [facility] Body weight 2023-06-17 13:23:00 181.439 kg [facility] BMI 2023-06-17 13:23:00 48.69 kg/m2 [facility] Oxygen saturation in Arterial blood by Pulse oximetry 2023-06-17 13:23:00 96 /min [facility] Systolic blood pressure 2023-06-15 18:00:00 168 mm[Hg] [facility] Diastolic blood pressure 2023-06-15 18:00:00 107 mm[Hg] [facility] Heart rate 2023-06-15 18:00:00 80 /min [facility] Respiratory rate 2023-06-15 18:00:00 16 /min [facility] Oxygen saturation in Arterial blood by Pulse oximetry 2023-06-15 18:00:00 95 /min [facility] Body temperature 2023-06-15 16:25:00 36.39 Chelo [facility] Body height 2023-06-15 16:25:00 193 cm [facility] Body weight 2023-06-15 16:25:00 181.439 kg [facility] BMI 2023-06-15 16:25:00 48.69 kg/m2 [facility] Systolic blood pressure 2023-03-09 19:19:00 112 mm[Hg] [facility] Diastolic blood pressure 2023-03-09 19:19:00 69 mm[Hg] [facility] Heart rate 2023-03-09 19:19:00 104 /min [facility] Body temperature 2023-03-09 19:19:00 36 Chelo [facility] Body height 2023-03-09 19:19:00 193 cm [facility] Body weight 2023-03-09 19:19:00 180.532 kg per pt [facility] BMI 2023-03-09 19:19:00 48.45 kg/m2 [facility] Oxygen saturation in Arterial blood by Pulse oximetry 2023-03-09 19:19:00 95 /min [facility] Systolic blood pressure 2023-01-21 23:00:00 159 mm[Hg] [facility] Diastolic blood pressure 2023-01-21 23:00:00 100 mm[Hg] [facility] Heart rate 2023-01-21 23:00:00 81 /min [facility] Respiratory rate 2023-01-21 23:00:00 14 /min [facility] Oxygen saturation in Arterial blood by Pulse oximetry 2023-01-21 23:00:00 95 /min [facility] Body temperature 2023-01-21 19:29:00 37.17 Chelo [facility] Body height 2023-01-21 19:29:00 193 cm [facility] Body weight 2023-01-21 19:29:00 180.532 kg [facility] BMI 2023-01-21 19:29:00 48.45 kg/m2 [facility] Systolic blood pressure 2020-01-29 16:02:00 141 mm[Hg] [facility] Diastolic blood pressure 2020-01-29 16:02:00 85 mm[Hg] [facility] Heart rate 2020-01-29 16:02:00 95 /min [facility] Body temperature 2020-01-29 16:02:00 37 Chelo [facility] Respiratory rate 2020-01-29 16:02:00 20 /min [facility] Body height 2020-01-29 16:02:00 193 cm [facility] Body weight 2020-01-29 16:02:00 147.589 kg [facility] BMI 2020-01-29 16:02:00 39.61 kg/m2 [facility] Systolic blood pressure 2019-10-09 20:50:00 137 mm[Hg] [facility] Diastolic blood pressure 2019-10-09 20:50:00 87 mm[Hg] [facility] Heart rate 2019-10-09 20:48:00 100 /min [facility] Respiratory rate 2019-10-09 20:48:00 18 /min [facility] Body height 2019-10-09 20:48:00 193 cm [facility] Body weight 2019-10-09 20:48:00 149.233 kg [facility] BMI 2019-10-09 20:48:00 40.05 kg/m2 [facility] Oxygen saturation in Arterial blood by Pulse oximetry 2019-10-09 20:48:00 96 /min [facility] Systolic blood pressure 2024-10-26 20:45:00 135 mm[Hg] [facility] Diastolic blood pressure 2024-10-26 20:45:00 84 mm[Hg] [facility] Heart rate 2024-10-26 20:45:00 96 /min [facility] Body temperature 2024-10-26 20:45:00 36.72 Chelo [facility] Body height 2024-10-26 20:45:00 193 cm [facility] Body weight 2024-10-26 20:45:00 189.558 kg [facility] BMI 2024-10-26 20:45:00 50.87 kg/m2 [facility] Oxygen saturation in Arterial blood by Pulse oximetry 2024-10-26 20:45:00 99 /min [facility] Respiratory rate 2024 22:00:00 12 /min [facility] Systolic blood pressure 2024-07-18 15:47:00 153 mm[Hg] [facility] Diastolic blood pressure 2024-07-18 15:47:00 97 mm[Hg] [facility] Heart rate 2024-07-18 15:47:00 99 /min [facility] Body height 2024-07-18 15:46:00 193 cm [facility] Body weight 2024-07-18 15:46:00 185.975 kg [facility] BMI 2024-07-18 15:46:00 49.91 kg/m2 [facility] Oxygen saturation in Arterial blood by Pulse oximetry 2024-07-18 15:46:00 95 /min [facility] Body temperature 2024-07-17 16:16:00 36.89 Chelo [facility] Respiratory rate 2024-07-17 16:16:00 17 /min [facility] Procedures Procedure Date / Time Performed Performing Clinician Source EKG-12 LEAD 2025-01-16 16:52:03 [facility]25-01-16 14:40[facility]-16 14:17:00 Lilo Blackburn [facility] TROPONIN I 2025-01-16 14:17:00 Lilo Blackburn [facility] COMP. METABOLIC PANEL ([id number]) 2025-01-16 14:17:00 Lilo Blackburn [facility] CBC WITH DIFF 2025-01-16 14:17:00 [facility] L[facility]ID WHOLE BLOOD 2025-01-16 14:17:00 Lilo Blackburn [facility] POCT GLUCOSE (AUTOMATED) 2025-01-16 14:16:00 Lilo Blackburn [facility] POCT URINALYSIS AUTO 2025-01-09 00:00:00 Anaya Emmanuel [facility] PNEUMOCOCCAL 20 CONJUGATE (PREVNAR 20) VACCINE 2024-10-19 21:21:02 Bree Brice [facility] PNEUMOCOCCAL 20 CONJUGATE (PREVNAR 20) VACCINE 2024-10-19 21:21:02 Bree Brice [facility] XR CHEST 1 VW 2024 20:09:00 Kain Desai [facility] URINALYSIS 2024 20:08:00 Kain Desai [facility] INFLUENZA A/B RSV COVID NAAT 2024 20:08:00 Kain Desai [facility] URINALYSIS 2024 20:08:00 Kain Desai [facility] INFLUENZA A/B RSV COVID NAAT 2024 20:08:00 Kain Desai [facility] LAB ONLY COVID INTERPRETATION 2024 20:08:00 Kain Desai [facility] LIPASE 2024 19:57:00 Kain Desai [facility] MAGNESIUM 2024 19:57:00 Kain Desai [facility] TROPONIN I 2024 19:57:00 Kain Desai [facility] COMP. METABOLIC PANEL ([id number]) 2024 [facility]57[facility]57[facility] 2024 19:57:00 Kain Desai [facility] COMP. METABOLIC PANEL ([id number]) 2024 19:57:00 Kain Desai [facility] LIPASE 2024 19:57:00 Kain Desai [facility] TROPONIN I 2024 19:57:00 Kain Desai [facility] N-TERMINAL PRO-BNP 2024 19:57:00 Kain Desai [facility] MAGNESIUM 2024 19:57:00 Kain Desai [facility] HB ECG ROUTINE & RHYTHM STRIP 2024 19:45:52 Kain Desai [facility] CT THORAX WO CONTRAST 2024-05-08 20:23:05 Cali Mcgarry [facility] QAMAR,POST-VOID RES,US,NON-IMAGING 2024-02-16 19:57:00 Jackson Hidalgo [facility] POCT URINALYSIS AUTO 2024-02-16 [facility] 2024-02-15 16:49:08 Doctor Unassigned, [place] [facility] POCT URINALYSIS AUTO 2024-02-02 14:54:00 [facility]AM[facility],POST-VOID RES,US,NON-IMAGING 2024-01-11 15:52[facility] 2023-12-01 15:01[facility]RESPONSE 2023-11-23 05:01:00 Doctor Unassigned, [place] [facility] NM BONE WHOLE BODY 2023-11-05 21:19[facility] 2023-11-05 21:19:00 [facility]/RESPONSE 2023-10-28 06:01:00 Doctor Unassigned, [place] [facility] REFERRAL- REQUEST/RESPONSE 2023-10-19 06:01:00 Doctor Unassigned, [place] [facility] REFERRAL- REQUEST/RESPONSE 2023-10-14 06:01:00 Doctor Unassigned, [place] [facility] AUTHORIZATION FOR RELEASE OF PHI 2023-10-04 06:01:00 Doctor Unassigned, [place] [facility] PHYSICIAN CERTIFICATION STATEMENT 2023-09-30 06:01:00 Doctor Unassigned, [place] [facility] REFERRAL- REQUEST/RESPONSE 2023-09-28 06:01:00 Doctor Unassigned, [place] [facility] URINALYSIS 2023-09-17 23:45:00 Chavo Martinez [facility] COMP. METABOLIC PANEL ([id number]) 2023-09-17 23:19:00 Chavo Martinez [facility] CBC WITH DIFF 2023-09-17 23:19:00 Chavo Martinez [facility] LACTIC ACID WHOLE BLOOD 2023-09-17 23:18:00 Efrain Martinez [facility] REFERRAL- REQUEST/RESPONSE 2023-08-31 06:01:00 Doctor Unassigned, [place] [facility] INSURANCE CORRESPONDENCE 2023-08-17 06:01:00 Doc tor Unassigned, [place] [facility] REFERRAL- REQUEST/RESPONSE 2023-07-06 05:01:00 Doctor Unassigned, [place] [facility] CT HEAD WO CONTRAST 2023-06-15 17:39:00 Rodney Joyce [facility] HCV ANTIBODY 2023-06-15 16:58:00 Bree Brice [facility] HIV 1/2 AG-AB WITH REFLEX 2023-06-15 16:58:00 Amanda Brice [facility] COMP. METABOLIC PANEL (95434) 2023-06-15 16:57:00 Muna Joyce [facility] URINE DRUG (IMMUNOASSAY) - COMPREHENSIVE DRUG SCREEN 2023-06-15 16:57:00 Muna Joyce [facility] CBC WITH DIFF 2023-06-15 16:57:00 Muna Joyce [facility] URINALYSIS 2023-06-15 16:57:00 Muna Joyce [facility] NOTICE OF PRIVACY PRACTICES 2023-06-15 16:35:32 Doctor Unassigned, [place] [facility] CONSENT/REFUSAL FOR DIAGNOSIS AND TREATMENT 2023-06-15 16:35:07 Doctor Unassigned, [place] [facility] ASSIGNMENT OF BENEFITS 2023-06-15 16:34:35 Docto r Unassigned, [place] [facility] CONSENT/REFUSAL FOR DIAGNOSIS AND TREATMENT 2023-03-09 18:58:21 Doctor Unassigned, [place] [facility] TROPONIN I 2023-01-21 21:42:00 Chavo Martinez [facility] XR CHEST 1 VW 2023-01-21 20:24:03 Chavo Martinez [facility] LIPASE 2023-01-21 19:40:00 [facility]23-01-21 19:40:00 Chavo Martinez [facility] TROPONIN I 2023-01-21 19:40:00 Chavo Martinez [facility] COMP. METABOLIC PANEL ([id number]) 2023-01-21 19:40:00 Singer Chavo [facility] CBC WITH DIFF 2023-01-21 19:40:00 Chavo Martinez [facility] N-TERMINAL PRO-BNP 2023-01-21 19:40:00 Singer Chavo [facility] CONSENT/REFUSAL FOR DIAGNOSIS AND TREATMENT 2023-01-21 19:23:27 Doctor Unassigned, [place] [facility] AUTHORIZATION FOR RELEASE OF PHI 2022-07-13 05:01:00 Doctor Unassigned, [place] [facility] MR BRAIN WO CONTRAST 2019-12-14 14:33:[address] Gene [facility] ASSIGNMENT OF BENEFITS 2019-12-14 13:42:18 Docto r Unassigned, [place] [facility] AUTHORIZATION TO RELEASE PHI TO [facility] 2019-07-19 06:01:00 Doctor Unassigned, [place] [facility] OP CORRESPONDENCE 2019-05-10 05:01:00 Doctor Akua ssigned, [place] [facility] COLONOSCOPY (ENDO) 2018-11-21 16:54:59 Agata Santacruz [facility] BCPC - SUBSEQUENT ENCOUNTER 2014-10-25 06:01:00 Doctor Unassigned, [place] [facility] PATIENT QUESTIONNAIRE 2013-10-25 06:01:00 Doctor Unassigned, [place] [facility] Encounters Start Date/Time End Date/Time Encounter Type Admission Type Attending Clinicians Care Facility Care Department Encounter ID Source 2025-06-14 00:00:00 2025-06-14 15:19:47 Telephone Zack Newsome [facility] 1.2.840.114 350.1.13.10 4.2.7.2.686 [id number] [facility] 2025-06-10 00:00:00 2025-06-11 08:40:22 [facility] OFF[facility] 1.2.840.114 350.1.13.10 4.2.7.2.686 [id number] [id number] [facility] 2025-05-29 00:00:00 2025-05-29 13:28:54 Patient Outreach Nica Jesus Sheri R [facility] MEDICAL OFFICE BUILDING 1.2.840.114 350.1.13.10 4.2.7.2.686 [id number] [id number] [facility] 2025-05-28 14:40:00 2025-05-28 15:00:00 Office Visit R [facility] OFF[facility] 1.2.840.114 350.1.13.10 4.2.7.2.686 [id number] [facility] 2025-05-03 00:00:00 2025-05-03 14:26:14 Telephone [facility] MED[facility] OFF[facility] BUILD[facility] 1.2.840.114 350.1.13.10 4.2.7.2.686 [id number] [facility] 2025-04-18 14:20:00 2025-04-18 14:20:00 Outpatient R JEROD CASSANDRAZARAA JEROD ZACK [facility] [id number] [facility] 2025-04-18 14:20:00 2025-04-18 14:20:00 Outpatient R NEWSOME, FAKEHA NEWSOME, ZACK [facility] [id number] [facility] 2025-04-18 00:00:00 2025-04-18 12:18:56 Telephone Jerod Fakeha [facility] MED[facility] OFF[facility] 1.114 350.1.13.10 4.2.7.2.686 [id number] 044 [id number] [facility] 2025-03-10 00:00:00 2025-04-14 18:46:29 Patient Secure Bree Lockett [facility] MED[facility] OFFICE BUILDING 1..114 350.1.13.10 4.2.7.2.686 [id number] 044 [id number] [facility] 2025-04-03 00:00:00 2025-04-03 12:08:40 Patient Outreach Janie Ramires Jazmine M [facility] MEDICAL OFFICE BUILDING 1.114 350.1.13.10 4.2.7.2.686 [id number] 044 [id number] [facility] 2025-03-08 00:00:00 2025-03-08 13:01:40 Patient Outreach Cass Polanco Katherine [facility] [place] 1.114 350.1.13.10 4.2.7.2.686 [id number] [facility] 2025-03-07 16:15:00 2025-03-07 16:34:37 Classics Professor Visit R Lab, Ang - Db Newsome, Natesherry Lab, Ang - Db [facility] MEDICAL OFFICE BUILDING 1.114 350.1.13.10 4.2.7.2.686 [id number] [facility] 2025-03-07 15:20:00 2025-03-07 15:58:31 Office Visit R NewsomeZack [facility] MED[facility] OFF[facility] 1.114 350.1.13.10 4.2.7.2.686 [id number] [facility] 2025-03-02 13:30:00 2025-03-02 13:30:00 Outpatient R [facility] [id number] [facility] 2025-02-26 13:30:00 2025-02-26 13:30:00 Outpatient R [facility] [id number] [facility] 2025-02-22 00:00:00 2025-02-22 00:00:00 Outpatient R ANAYA EMMANUEL [facility] [id number] [facility] 2025-02-21 11:45:00 2025-02-21 11:45:00 Outpatient R [facility] [id number] [facility] 2025-02-13 00:00:00 2025-02-16 10:21:22 Patient Secure Msg Doctor Unassigned, [place] Doctor Unassigned, [place] [facility] MEDICAL OFFICE BUILDING 1.2840.114 350.1.13.10 4.2.7.2.686 [id number] [id number] [facility] 2025-02-14 00:00:00 2025-02-14 11:44:39 Telephone PostUgoig Galileo [facility] MEDICAL OFFICE BUILDING 1.2840.114 350.1.13.10 4.2.7.2.686 [id number] [facility] 2025-02-12 00:00:00 2025-02-12 12:54:30 Letter (Out) [facility] ([facility] 1.20.114 350.1.13.10 4.2.7.2.686 [id number] [facility] 2025-02-07 00:00:00 2025-02-09 14:34:56 Telephone Fadi Post [facility] MEDICAL OFFICE BUILDING 1.2840.114 350.1.13.10 4.2.7.2.686 [id number] [facility] 2025-02-08 00:00:00 2025-02-08 12:52:44 Specialty Pharmacy Daisy Valerio Raven [facility] 1.2840.114 350.1.13.10 4.2.7.2.686 [id number] [facility] 2025-02-06 13:15:00 2025-02-06 13:15:00 Outpatient R [facility] [id number] [facility] 2025-01-30 00:00:00 2025-02-05 11:36:57 Telephone Fadi Post [facility] MED[facility] OFF[facility] BU[facility] 1.840.114 350.1.13.10 4.2.7.2.686 [id number] [facility] 2025-02-02 00:00:00 2025-02-02 15:59:42 Telephone Jackson Hidalgo [facility] 1.840.114 350.1.13.10 4.2.7.2.686 [id number] [facility] 2025-02-01 11:00:00 2025-02-01 11:00:00 Outpatient R FADI [facility] [id number] [facility] 2025-01-31 00:00:00 2025-01-31 16:43:52 Telephone Rene Shay Gary [facility] 1.0.114 350.1.13.10 4.2.7.2.686 [id number] [facility] 2025-01-26 00:00:00 2025-01-26 15:39:46 Specialty Pharmacy Daisy Valerio Raven [facility] 1.2840.114 350.1.13.10 4.2.7.2.686 [id number] [facility] 2025-01-26 11:30:00 2025-01-26 11:30:00 Outpatient R FADI [facility] [id number] [facility] 2025-01-26 11:30:00 2025-01-26 11:30:00 Outpatient R FADI [facility] [id number] [facility] 2025-01-16 09:10:00 2025-01-16 12:23:00 Emergency X LILO BLACKBURN SANDRA [facility] ERT [id number] [facility] 2025-01-16 09:10:00 2025-01-16 12:23:00 Emergency Lilo Blackburn [facility] 1.2.840.114 350.1.13.10 4.2.7.2.686 [id number] [facility] 2025-01-16 00:00:00 2025-01-16 00:00:00 Outpatient R ANAYA EMMANUEL [facility] [id number] [facility] 2025-01-11 13:15:00 2025-01-11 13:15:00 Outpatient R FADI [facility] [id number] [facility] 2025-01-08 00:00:00 2025-01-10 12:16:35 Telephone Fadi Post [facility] 1.2.840.114 350.1.13.10 4.2.7.2.686 [id number] [facility] 2025-01-09 16:30:00 2025-01-09 16:58:22 Outpatient R [facility] [id number] [facility] 2025-01-09 16:30:00 2025-01-09 16:58:22 [facility] 1.2.840.114 350.1.13.10 4.2.7.2.686 [id number] [facility] 2016-04-16 00:00:00 2025-01-04 22:35:37 Letter (Out) Emu Emu [facility] ([facility]) 1.2.840.114 350.1.13.10 4.2.7.2.686 [id number] [facility] 2025-01-03 00:00:00 2025-01-04 16:15:25 Telephone Fadi Post [facility] MEDICAL OFFICE BUILDING 1.2.840.114 350.1.13.10 4.2.7.2.686 [id number] [facility] 2025-01-04 00:00:00 2025-01-04 09:30:25 Specialty Pharmacy Ana Paula Landers Aquila Y [facility] 1.2.840.114 350.1.13.10 4.2.7.2.686 [id number] [id number] [facility] 2024-12-21 00:00:00 2024-12-22 08:32:55 Refill Keny Steinberg [facility] ([facility]) 1.2.840.114 350.1.13.10 4.2.7.2.686 [id number] 071 [id number] [facility] 2024-12-19 00:00:00 2024-12-20 10:35:14 Telephone Keny Steinberg [facility] ([facility]) 1.2.840.114 350.1.13.10 4.2.7.2.686 [id number] 071 [id number] [facility] 2024-12-17 00:00:00 2024-12-18 10:58:37 Refill Bree Brice [facility] MEDICAL OFFICE BUILDING 1.2.840.114 350.1.13.10 4.2.7.2.686 [id number] 044 [id number] [facility] 2024-12-17 00:00:00 2024-12-18 08:11:27 Refill Keny Steinberg [facility] ([facility]) 1.2.840.114 350.1.13.10 4.2.7.2.686 [id number] [id number] [facility] 2024-12-15 00:00:00 2024-12-15 17:21:57 [facility] 1.2.840.114 350.1.13.10 4.2.7.2.686 [id number] [id number] [facility] 2024-12-15 11:30:00 2024-12-15 11:30:00 Outpatient R FADI [facility] [id number] [facility] 2024-12-11 00:00:00 2024-12-11 15:32:06 Telephone Fadi Post [facility] MEDICAL OFFICE BUILDING 1.2840.114 350.1.13.10 4.2.7.2.686 [id number] [facility] 2024-12-08 00:00:00 2024-12-11 10:51:30 Telephone Fadi Post [facility] MEDICAL OFFICE BUILDING 1.2840.114 350.1.13.10 4.2.7.2.686 [id number] 044 [id number] [facility] 2024-11-09 00:00:00 2024-11-09 14:01:13 Telephone Fadi Post [facility] MEDICAL OFFICE BUILDING 1.2840.114 350.1.13.10 4.2.7.2.686 [id number] [facility] 2024-11-09 14:00:00 2024-11-09 14:00:00 Outpatient R FADI [facility] [id number] [facility] 2024-11-09 00:00:00 2024-11-09 10:17:36 Telephone Fadi Post [facility] MEDICAL OFFICE BUILDING 1..840.114 350.1.13.10 4.2.7.2.686 [id number] [facility] 2024-11-05 00:00:00 2024-11-05 11:21:30 Telephone Bree Brice [facility] MEDICAL OFFICE BUILDING 1..840.114 350.1.13.10 4.2.7.2.686 [id number] 044 [id number] [facility] 2024-09-29 00:00:00 2024-11-04 18:20:29 Patient Secure Msg Doctor Unassigned, [place] Doctor Unassigned, [place] [facility] 1..840.114 350.1.13.10 4.2.7.2.686 [id number] [facility] 2024-02-15 00:00:00 2024-10-28 07:36:42 Orders Only Doctor Unassigned, [place] Doctor Unassigned, [place] [facility] ([facility]) 1.840.114 350.1.13.10 4.2.7.2.686 [id number] [facility] 2024-10-26 14:45:00 2024-10-26 15:02:53 Outpatient R FADI [facility] [id number] [facility] 2024-10-26 14:45:00 2024-10-26 15:02:53 Office Visit Fadi Post [facility] 1.2.840.114 350.1.13.10 4.2.7.2.686 [id number] [facility] 2024-10-26 00:00:00 2024-10-26 00:00:00 Travel 1.2.840.1 20236.1.1 3.104.2.7 .3.525818 .8 1.2.840.114 350.1.13.10 4.2.7.3.698 084.8 [id number] [facility] 2024-10-19 15:45:00 2024-10-19 15:59:09 Classics Professor Visit Bree Brice, [facility] - Db 1.2.840.1 64143.1.1 3.104.2.7 .3.699133 .8 [id number] [facility] 2024-10-19 15:00:00 2024-10-19 15:32:28 Outpatient R BREE BRICE [facility] [id number] [facility] 2024-10-19 15:00:00 2024-10-19 15:32:28 Office Visit Bree Brice 1.2.840.1 01940.1.1 3.104.2.7 .3.628711 .8 [id number] [facility] 2024-10-19 00:00:00 2024-10-19 00:00:00 Travel 1.2.840.1 44729.1.1 3.104.2.7 .3.533694 .8 1.2.840.114 350.1.13.10 4.2.7.3.698 084.8 [id number] [facility] 2024-09-26 00:00:00 2024-09-29 08:56:55 Telephone Keny Steinberg 1.2.840.1 38542.1.1 3.104.2.7 .3.053066 .8 [id number] [facility] 2024-09-25 00:00:00 2024-09-26 10:57:02 Telephone Bree Brice 1.2.840.1 76001.1.1 3.104.2.7 .3.117753 .8 [id number] [facility] 2024-09-08 15:30:00 2024-09-08 15:30:00 Outpatient R SISSYCONNIE MUNSONTHIA [facility] [id number] [facility] 2024-07-28 00:00:00 2024-08-30 09:34:11 Refill Bree Brice 1.2.840.1 16399.1.1 3.104.2.7 .3.033037 .8 [id number] [facility] 2024 13:49:00 2024 16:48:00 Emergency X KAIN DESAI DONNELL [facility] ERT [id number] [facility] 2024 13:49:00 2024 16:48:00 Emergency Kain Desai 1.2.840.1 73210.1.1 3.104.2.7 .3.554595 .8 [id number] [facility] 2024 13:00:00 2024 13:30:00 Office Visit SissygabeDrewa 1.2.840.1 83088.1.1 3.104.2.7 .3.379836 .8 [id number] [facility] 2024 13:00:00 2024 13:00:00 Outpatient R BABS BREE [facility] [id number] [facility] 2024 00:00:00 2024 00:00:00 Travel 1.2.840.1 88894.1.1 3.104.2.7 .3.006412 .8 1.2.840.114 350.1.13.10 4.2.7.3.698 084.8 [id number] [facility] 2024-08-23 00:00:00 2024-08-24 13:43:53 RefBree Le 1.2.840.1 28997.1.1 3.104.2.7 .3.987246 .8 [id number] [facility] 2024-08-15 00:00:00 2024-08-16 13:23:09 Refill Bree Brice 1.2.840.1 73802.1.1 3.104.2.7 .3.846756 .8 [id number] [facility] 2024-08-02 00:00:00 2024-08-03 09:49:10 RefBree Le 1.2.840.1 79226.1.1 3.104.2.7 .3.457816 .8 [id number] [facility] 2024-07-18 09:50:46 2024-07-18 23:59:00 Outpatient R FADI [facility] [id number] [facility] 2024-07-18 09:50:46 2024-07-18 23:59:00 Hospital Encounter Fadi Post [facility] MEDICAL OFFICE BUILDING 1..840.114 350.1.13.10 4.2.7.2.686 [id number] [facility] 2024-07-18 09:30:00 2024-07-18 10:56:38 Outpatient R FADI [facility] GIE [id number] [facility] 2024-07-18 09:30:00 2024-07-18 10:56:38 Office Visit Fadi Post Sreeram [facility] MEDICAL OFFICE BUILDING 1..840.114 350.1.13.10 4.2.7.2.686 [id number] [facility] 2024-07-18 00:00:00 2024-07-18 00:00:00 Travel 1.2.840.1 11937.1.1 3.104.2.7 .3.815065 .8 1.2.840.114 350.1.13.10 4.2.7.3.698 084.8 [id number] [facility] 2024-07-17 12:45:14 2024-07-17 12:45:14 Anesthesia Event Madhu Bolden Mai T. 1.2.840.1 10700.1.1 3.104.2.7 .3.475120 .8 [id number] [facility] 2024-07-17 09:17:00 2024-07-17 12:44:00 Hospital Encounter JairirckChapo ribeiro 1.2.840.1 12338.1.1 3.104.2.7 .3.372955 .8 [id number] [facility] 2024-07-05 00:00:00 2024-07-05 11:14:11 Refill Bree Brice 1.2.840.1 84616.1.1 3.104.2.7 .3.219014 .8 [id number] [facility] 2024-06-30 00:00:00 2024-07-04 08:58:07 Telephone Keny Steinberg 1.2.840.1 84806.1.1 3.104.2.7 .3.133896 .8 [id number] [facility] 2024-06-30 00:00:00 2024-06-30 13:09:08 Telephone Bree Brice 1.2.840.1 67041.1.1 3.104.2.7 .3.208155 .8 [id number] [facility] 2024-05-30 00:00:00 2024-05-30 16:21:53 Refill Anegabe Bree 1.2.840.1 27240.1.1 3.104.2.7 .3.543631 .8 [id number] [facility] 2024-05-30 10:20:00 2024-05-30 10:20:00 Outpatient R GREG MCGARRY CHINTAN [facility] [id number] [facility] 2024-05-29 00:00:00 2024-05-29 10:52:26 Refill Babs Bree 1.2.840.1 62933.1.1 3.104.2.7 .3.339483 .8 [id number] [facility] 2024-05-27 00:00:00 2024-05-29 06:59:56 Refill Babs Bree 1.2.840.1 37126.1.1 3.104.2.7 .3.279179 .8 [id number] [facility] 2024-05-08 14:43:46 2024-05-08 23:59:00 Outpatient R GREG MCGARRY CH[facility] [id number] [facility] 2024-05-08 14:40:00 2024-05-08 23:59:00 Hospital Encounter Greg Mcgarry. 1.2.840.1 85499.1.1 3.104.2.7 .3.711921 .8 [id number] [facility] 2024-04-28 00:00:00 2024-04-28 00:00:00 Outpatient R MALGORZATA GREG FREDERICK [facility] [id number] [facility] 2024-04-19 00:00:00 2024-04-20 07:07:51 Refill Babs Bree 1.2.840.1 32966.1.1 3.104.2.7 .3.229345 .8 [id number] [facility] 2024-04-19 00:00:00 2024-04-19 14:15:57 Refill Bree Brice 1.2.840.1 89788.1.1 3.104.2.7 .3.550609 .8 [id number] [facility] 2024-04-18 00:00:00 2024-04-19 08:52:59 Refill Bree Brice 1.2.840.1 30870.1.1 3.104.2.7 .3.098766 .8 [id number] [facility] 2024-04-04 10:30:00 2024-04-04 11:00:00 Office Visit Keny Steinberg [facility] 1..840.114 350.1.13.10 4.2.7.2.686 [id number] [facility] 2024-04-04 10:30:00 2024-04-04 10:30:00 Outpatient R KENY STEINBERG [facility] [id number] [facility] 2024-04-01 00:00:00 2024-04-03 09:03:27 Telephone Bree Brice [facility] MED[facility] OFF[facility] BUILDING 1..840.114 350.1.13.10 4.2.7.2.686 [id number] 044 [id number] [facility] 2024-03-30 09:29:58 2024-03-30 23:59:00 Outpatient R FADI [facility] [id number] [facility] 2024-03-30 09:29:58 2024-03-30 23:59:00 Hospital Encounter Fadi Post [facility] MEDICAL OFFICE BUILDING 1..840.114 350.1.13.10 4.2.7.2.686 [id number] [facility] 2024-03-30 09:30:00 2024-03-30 10:14:55 Office Visit Fadi Post [facility] MEDICAL OFFICE BUILDING 1.0.114 350.1.13.10 4.2.7.2.686 [id number] [facility] 2024-03-27 11:15:00 2024-03-27 11:30:00 Office Visit Salima Moreno [facility] MEDICAL OFFICE BUILDING 1.0.114 350.1.13.10 4.2.7.2.686 [id number] [facility] 2024-03-27 11:15:00 2024-03-27 11:15:00 Outpatient R BELLOMICHAELSALIMA [facility] [id number] [facility] 2024-03-23 14:30:00 2024-03-23 14:30:00 Outpatient R BREE BRICE [facility] [id number] [facility] 2024-03-22 00:00:00 2024-03-22 00:00:00 Outpatient R JAMES HIDALGOTH [facility] [id number] [facility] 2024-03-13 07:30:38 2024-03-13 23:59:00 Outpatient R BREE BRICE [facility] [id number] [facility] 2024-03-13 07:30:38 2024-03-13 23:59:00 Hospital Encounter Bree Brice [facility] 1..114 350.1.13.10 4.2.7.2.686 [id number] [facility] 2024-03-09 15:15:00 2024-03-09 15:30:00 Classics Professor Visit Lab, [facility] MEDICAL OFFICE BUILDING 1..114 350.1.13.10 4.2.7.2.686 [id number] [facility] 2024-03-09 14:30:00 2024-03-09 15:00:55 Outpatient R BREE BRICE [facility] [id number] [facility] 2024-03-09 14:30:00 2024-03-09 15:00:55 [facility] 1.2840.114 350.1.13.10 4.2.7.2.686 [id number] [facility] 2024-02-24 00:00:00 2024-02-24 00:00:00 Telephone Adriana Sunshine 1.2840.114 350.1.13.10 4.2.7.2.686 [id number] [facility] 2024-02-16 15:30:00 2024-02-16 15:45:00 Classics Professor Visit 2, Adc Lab [facility] BUILDING 1.2840.114 350.1.13.10 4.2.7.2.686 [id number] [facility] 2024-02-16 14:45:00 2024-02-16 15:36:59 Outpatient R ROCKY [facility] [id number] [facility] 2024-02-16 14:45:00 2024-02-16 15:36:59 Office Visit [place] [facility] BUILDING 1.2840.114 350.1.13.10 4.2.7.2.686 [id number] [facility] 2024-02-11 00:00:00 2024-02-11 10:47:52 Telephone Adriana Sunshine 1.2840.114 350.1.13.10 4.2.7.2.686 [id number] [facility] 2024-02-07 00:00:00 2024-02-09 10:15:15 Tabitha Bree Brice [facility] MED[facility] OFF[facility] BUILDING 1.2.840.114 350.1.13.10 4.2.7.2.686 [id number] [facility] 2024-02-02 10:00:00 2024-02-02 11:24:26 Outpatient R JACKSON HIDALGO [facility] [id number] [facility] 2024-02-02 10:00:00 2024-02-02 11:24:26 Office Visit Jackson Hidalgo Rm2, Adc Surg Proc [facility] BUILDING 1.2.840.114 350.1.13.10 4.2.7.2.686 [id number] [facility] 2024-01-25 13:00:00 2024-01-25 14:45:00 Outpatient R GREG MCGARRY CHINTAN [facility] [id number] [facility] 2024-01-25 13:00:00 2024-01-25 14:45:00 Office Visit Greg Mcgarry H BUILDING 1.2.840.114 350.1.13.10 4.2.7.2.686 [id number] [facility] 2024-01-20 10:00:00 2024-01-20 10:00:00 Classics Professor Visit 2, Adc Lab Jackson Hidalgo [facility] BUILDING 1.2.840.114 350.1.13.10 4.2.7.2.686 [id number] [facility] 2024-01-20 10:00:00 2024-01-20 09:48:25 Outpatient R JACKSON HIDALGO [facility] [id number] [facility] 2024-01-18 00:00:00 2024-01-18 08:35:10 Telephone Areli Linn [facility] 1.2.840.114 350.1.13.10 4.2.7.2.686 [id number] 086 [id number] [facility] 2024-01-11 11:00:00 2024-01-11 11:28:44 Outpatient R BISHNU [facility] [id number] [facility] 2024-01-11 11:00:00 2024-01-11 11:28:44 Office Visit Roma Goetztney [facility] NAL BUILDING 1.2.840.114 350.1.13.10 4.2.7.2.686 [id number] [facility] 2024-01-04 00:00:00 2024-01-04 00:00:00 [facility] MEDICAL OFFICE BUILDING 1.2.840.114 350.1.13.10 4.2.7.2.686 [id number] 044 [id number] [facility] 2024-01-03 00:00:00 2024-01-03 00:00:00 [facility] MEDICAL OFFICE BUILDING 1.2.840.114 350.1.13.10 4.2.7.2.686 [id number] 044 [id number] [facility] 2023-12-29 00:00:00 2023-12-29 00:00:00 Refill Jefferson Christiansen [facility] B[facility]BY?[facility] MEDICAL OFFICE BUILDING 1.2.840.114 350.1.13.10 4.2.7.2.686 [id number] 092 [id number] [facility] 2023-12-29 00:00:00 2023-12-29 00:00:00 [facility] BUILD[facility] 1.2.840.114 350.1.13.10 4.2.7.2.686 [id number] [id number] [facility] 2023-12-28 00:00:00 2023-12-28 00:00:00 Telephone Linn Singleton 1.2.840.114 350.1.13.10 4.2.7.2.686 [id number] 086 [id number] [facility] 2023-12-08 00:00:00 2023-12-08 00:00:00 Case Management [facility] NAL BUILD[facility] 1.2.840.114 350.1.13.10 4.2.7.2.686 [id number] [facility] 2023-12-08 00:00:00 2023-12-08 00:00:00 Telephone Roma Goetztney [facility] NAL BUILDING 1.2.840.114 350.1.13.10 4.2.7.2.686 [id number] [facility] 2023-12-01 11:00:15 2023-12-01 23:59:00 Outpatient R BISHNU [facility] [id number] [facility] 2023-12-01 10:00:00 2023-12-01 23:59:00 Hospital Encounter [facility] 1.2.840.114 350.1.13.10 4.2.7.2.686 [id number] [id number] [facility] 2023-12-01 09:11:21 2023-12-01 09:59:00 Hospital Encounter [facility] 1.2.840.114 350.1.13.10 4.2.7.2.686 [id number] [id number] [facility] 2023-12-01 00:00:00 2023-12-01 00:00:00 Telephone Linn Singleton 1.840.114 350.1.13.10 4.2.7.2.686 [id number] 086 [id number] [facility] 2023-11-30 15:31:33 2023-11-30 23:59:00 [facility] [id number] [facility] 2023-11-30 15:05:00 2023-11-30 23:59:00 Hospital Encounter Roma Goetztney [facility] 1.840.114 350.1.13.10 4.2.7.2.686 [id number] [facility] 2023-11-23 00:00:00 2023-11-23 00:00:00 Orders Only Doctor Unassigned, [place] [facility] 1.840.114 350.1.13.10 4.2.7.2.686 [id number] [id number] [facility] 2023-11-16 00:00:00 2023-11-16 00:00:00 [facility] [id number] [facility] 2023-11-16 00:00:00 2023-11-16 00:00:00 Bree Green [facility] BUILDING 1.2840.114 350.1.13.10 4.2.7.2.686 [id number] 044 [id number] [facility] 2023-11-15 00:00:00 2023-11-15 00:00:00 Telephone Adriana Sunshine 1.2840.114 350.1.13.10 4.2.7.2.686 [id number] 086 [id number] [facility] 2023-11-15 00:00:00 2023-11-15 00:00:00 Telephone Ulises Stern Adriana [facility] 1.840.114 350.1.13.10 4.2.7.2.686 [id number] 086 [id number] [facility] 2023-11-15 00:00:00 2023-11-15 00:00:00 Refgriselda Christiansen [facility] PEORIASherry [facility] MEDICAL OFFICE BUILDING 1.840.114 350.1.13.10 4.2.7.2.686 [id number] 092 [id number] [facility] 2023-11-09 00:00:00 2023-11-09 00:00:00 Refill Patricia [facility] MEDICAL OFFICE BUILDING 1.840.114 350.1.13.10 4.2.7.2.686 [id number] 092 [id number] [facility] 2023-11-05 11:52:03 2023-11-05 23:59:00 Hospital Encounter Bishnu [facility] 1.0.114 350.1.13.10 4.2.7.2.686 [id number] [id number] [facility] 2023-11-05 11:51:50 2023-11-05 11:51:50 Outpatient R AMY GOETZ [facility] [id number] [facility] 2023-11-05 11:51:50 2023-11-05 11:51:50 [facility] 1.840.114 350.1.13.10 4.2.7.2.686 [id number] [id number] [facility] 2023-11-04 00:00:00 2023-11-04 00:00:00 Case Management [facility] 1.2.840.114 350.1.13.10 4.2.7.2.686 [id number] [facility] 2023-11-02 13:42:19 2023-11-02 23:59:00 Out[facility] [id number] [facility] 2023-11-02 13:42:19 2023-11-02 23:59:00 Hospital Encounter Amy Goetz [facility] 1.2.840.114 350.1.13.10 4.2.7.2.686 [id number] 804 [id number] [facility] 2023-11-02 00:00:00 2023-11-02 00:00:00 Telephone Adriana Sunshine 1.2840.114 350.1.13.10 4.2.7.2.686 [id number] 086 [id number] [facility] 2023-10-28 00:00:00 2023-10-28 00:00:00 Orders Only Doctor Unassigned, [place] [facility] 1.2.840.114 350.1.13.10 4.2.7.2.686 [id number] 009 [id number] [facility] 2023-10-27 00:00:00 2023-10-27 00:00:00 Telephone Linn Singleton PLARAJAN 1.2840.114 350.1.13.10 4.2.7.2.686 [id number] 086 [id number] [facility] 2023-10-25 12:40:00 2023-10-25 14:03:09 Outpatient JEFFERSON COOK [facility] [id number] [facility] 2023-10-25 12:40:00 2023-10-25 14:03:09 Office Visit Jefferson Christiansen [facility] BUILDING 1.2840.114 350.1.13.10 4.2.7.2.686 [id number] 092 [id number] [facility] 2023-10-20 00:00:00 2023-10-20 00:00:00 Telephone Michael Sunshinesaosei BUSTOS CEDRICK [facility] 1.2.840.114 350.1.13.10 4.2.7.2.686 [id number] 086 [id number] [facility] 2023-10-20 00:00:00 2023-10-20 00:00:00 Telephone [facility] BUILDING 1.2840.114 350.1.13.10 4.2.7.2.686 [id number] 044 [id number] [facility] 2023-10-20 00:00:00 2023-10-20 00:00:00 Telephone Bethel Roberts [facility] 1.2840.114 350.1.13.10 4.2.7.2.686 [id number] [facility] 2023-10-19 00:00:00 2023-10-19 00:00:00 Orders Only Doctor Unassigned, [place] [facility] 1.840.114 350.1.13.10 4.2.7.2.686 [id number] [id number] [facility] 2023-10-18 10:43:00 2023-10-18 10:43:00 Outpatient ARLEEN BACON [id number] Vikas Anthony 2023-10-15 11:00:00 2023-10-15 11:00:00 Outpatient AMY YATES [facility] [id number] [facility] 2023-10-14 00:00:00 2023-10-14 00:00:00 Orders Only Doctor Unassigned, [place] [facility] 1.840.114 350.1.13.10 4.2.7.2.686 [id number] [id number] [facility] 2023-10-13 13:45:00 2023-10-13 14:38:23 Out[facility] [id number] [facility] 2023-10-13 13:45:00 2023-10-13 14:38:23 [facility] N[facility] 1.2.840.114 350.1.13.10 4.2.7.2.686 [id number] [facility] 2023-10-11 15:35:19 2023-10-11 23:59:00 Outpatient R BISHNU [facility] [id number] [facility] 2023-10-11 15:35:19 2023-10-11 23:59:00 [facility] 1.2840.114 350.1.13.10 4.2.7.2.686 [id number] [facility] 2023-10-11 14:45:00 2023-10-11 15:00:00 Classics Professor Visit Lab, Ang - [facility] BUILD[facility] 1.2.840.114 350.1.13.10 4.2.7.2.686 [id number] [facility] 2023-10-08 00:00:00 2023-10-08 00:00:00 Telephone Adriana Sunshine 1.2.840.114 350.1.13.10 4.2.7.2.686 [id number] 086 [id number] [facility] 2023-10-07 17:00:00 2023-10-07 17:00:00 Outpatient R [facility] [id number] [facility] 2023-10-06 00:00:00 2023-10-06 00:00:00 Telephone [facility] 1.840.114 350.1.13.10 4.2.7.2.686 [id number] [facility] 2023-10-06 00:00:00 2023-10-06 00:00:00 Case Management [facility] PROFESSIO NAL BUILDING 1.2840.114 350.1.13.10 4.2.7.2.686 [id number] 204 [id number] [facility] 2023-10-04 00:00:00 2023-10-04 00:00:00 Orders Only Doctor Unassigned, [place] [facility] 1.2840.114 350.1.13.10 4.2.7.2.686 [id number] 009 [id number] [facility] 2023-10-01 15:15:11 2023-10-01 23:59:00 [facility] [id number] [facility] 2023-10-01 15:00:00 2023-10-01 23:59:00 [facility] 1.840.114 350.1.13.10 4.2.7.2.686 [id number] [id number] [facility] 2023-09-30 00:00:00 2023-09-30 00:00:00 Orders Only Doctor Unassigned, [place] [facility] 1.20.114 350.1.13.10 4.2.7.2.686 [id number] 009 [id number] [facility] 2023-09-29 00:00:00 2023-09-29 00:00:00 Telephone [facility] 1.20.114 350.1.13.10 4.2.7.2.686 [id number] 044 [id number] [facility] 2023-09-28 00:00:00 2023-09-28 00:00:00 Outpatient R AMY GOETZ [facility] [id number] [facility] 2023-09-28 00:00:00 2023-09-28 00:00:00 Telephone SingletonRadha prakashody Sherry JULI PHILIPJosue [facility] 1.2.840.114 350.1.13.10 4.2.7.2.686 [id number] 086 [id number] [facility] 2023-09-28 00:00:00 2023-09-28 00:00:00 Telephone Singleton, Linn Sherry [place] [place] 1.2.840.114 350.1.13.10 4.2.7.2.686 [id number] 086 [id number] [facility] 2023-09-28 00:00:00 2023-09-28 00:00:00 Orders Only Doctor Unassigned, [place] [facility] 1.2.840.114 350.1.13.10 4.2.7.2.686 [id number] [facility] 2023-09-23 10:30:00 2023-09-23 11:30:50 Outpatient R BREE BRICE [facility] [id number] [facility] 2023-09-23 10:30:00 2023-09-23 11:30:50 Office Visit Bree Brice [facility] MEDICAL OFFICE BUILDING 1.2840.114 350.1.13.10 4.2.7.2.686 [id number] 044 [id number] [facility] 2023-09-23 00:00:00 2023-09-23 00:00:00 Telephone SingletonRadha prakashremedios [facility] 1.2.840.114 350.1.13.10 4.2.7.2.686 [id number] 086 [id number] [facility] 2023-09-17 16:59:00 2023-09-17 19:23:00 Emergency X CHAVO MARTINEZ [facility] ERT [id number] [facility] 2023-09-17 16:59:00 2023-09-17 19:23:00 Emergency Chavo Martinez [facility] 1.2.840.114 350.1.13.10 4.2.7.2.686 [id number] 084 [id number] [facility] 2023-09-17 16:30:00 2023-09-17 16:45:00 Classics Professor Visit Pob, Adc Lab Main Bishnu [facility] BUILDING 1.2.840.114 350.1.13.10 4.2.7.2.686 [id number] [facility] 2023-09-17 14:45:00 2023-09-17 16:08:26 Outpatient R BISHNU [facility] [id number] [facility] 2023-09-17 14:45:00 2023-09-17 16:08:26 [facility] 1.2.840.114 350.1.13.10 4.2.7.2.686 [id number] [facility] 2023-09-16 15:20:00 2023-09-16 15:59:42 Outpatient R ALFREDO CHÁVEZ [facility] [id number] [facility] 2023-09-16 15:20:00 2023-09-16 15:59:42 [facility] 1.2.840.114 350.1.13.10 4.2.7.2.686 [id number] 059 [id number] [facility] 2023-08-31 00:00:00 2023-08-31 00:00:00 Orders Only Doctor Unassigned, [place] [facility] 1.2840.114 350.1.13.10 4.2.7.2.686 [id number] [id number] [facility] 2023-08-23 00:00:00 2023-08-23 00:00:00 Telephone Singleton Linnremedios [facility] 1.2840.114 350.1.13.10 4.2.7.2.686 [id number] 086 [id number] [facility] 2023-08-23 00:00:00 2023-08-23 00:00:00 Telephone SingletonRadha prakashody Sherry JULI PHILIP PLARAJAN 1.2840.114 350.1.13.10 4.2.7.2.686 [id number] 086 [id number] [facility] 2023-08-19 11:15:00 2023-08-19 11:30:00 Classics Professor Visit Lab, Scott Brice [facility] MEDICAL OFFICE BUILDING 1.2.114 350.1.13.10 4.2.7.2.686 [id number] [facility] 2023-08-19 10:00:00 2023-08-19 10:46:14 Outpatient R BABS [facility] [id number] [facility] 2023-08-19 10:00:00 2023-08-19 10:46:14 Office Visit Babs [facility] MEDICAL OFFICE BUILDING 1.20.114 350.1.13.10 4.2.7.2.686 [id number] [id number] [facility] 2023-08-19 00:00:00 2023-08-19 00:00:00 Telephone Linn SingletonIsaias PHILIPJosue [facility] 1.2840.114 350.1.13.10 4.2.7.2.686 [id number] 086 [id number] [facility] 2023-08-17 00:00:00 2023-08-17 00:00:00 Orders Only Doctor Unassigned, [place] [facility] 1.2.840.114 350.1.13.10 4.2.7.2.686 [id number] 009 [id number] [facility] 2023-08-02 00:00:00 2023-08-02 00:00:00 Telephone Adriana Sunshine 1.2.840.114 350.1.13.10 4.2.7.2.686 [id number] 086 [id number] [facility] 2023-07-13 15:00:00 2023-07-13 15:42:22 Outpatient JEFFERSON COOK [facility] [id number] [facility] 2023-07-13 15:00:00 2023-07-13 15:42:22 Office Visit [facility] 1.2840.114 350.1.13.10 4.2.7.2.686 [id number] 092 [id number] [facility] 2023-07-06 00:00:00 2023-07-06 00:00:00 Orders Only Doctor Unassigned, [place] [facility] 1.2840.114 350.1.13.10 4.2.7.2.686 [id number] 009 [id number] [facility] 2023-06-22 00:00:00 2023-06-22 00:00:00 Telephone Linn Singleton 1.2.840.114 350.1.13.10 4.2.7.2.686 [id number] 086 [id number] [facility] 2023-06-17 08:00:00 2023-06-17 12:41:40 Outpatient BREE GALLOWAY [facility] [id number] [facility] 2023-06-17 08:00:00 2023-06-17 12:41:40 Office [facility] BUILDING 1..840.114 350.1.13.10 4.2.7.2.686 [id number] 044 [id number] [facility] 2023-06-15 11:21:00 2023-06-15 14:19:00 Emergency X MUNA JOYCE [facility] ERT [id number] [facility] 2023-06-15 11:21:00 2023-06-15 14:19:00 Emergency Muna Joyce [facility] 1..840.114 350.1.13.10 4.2.7.2.686 [id number] [id number] [facility] 2023-05-25 15:26:50 2023-05-25 15:26:[address] [facility] [id number] Vikas Peralta Raj 2023-05-10 14:42:57 2023-05-10 14:42:[address] [facility] [id number] Vikas Peralta [facility] 2023-04-21 14:22:40 2023-04-21 14:22:[address] [facility] [id number] Vikas Peralta [facility] 2023-04-07 14:20:33 2023-04-07 14:20:[address] [facility] [id number] Vikas Peralta Raj 2023-03-29 00:00:00 2023-03-29 00:00:00 [facility] ..840.114 350.1.13.10 4.2.7.2.686 [id number] [facility] 2023-03-25 14:00:00 2023-03-25 23:59:00 [facility] [id number] [facility] 2023-03-25 00:00:00 2023-03-25 00:00:00 Telephone Tereza Wilburn [facility] BUILDING 1.2.840.114 350.1.13.10 4.2.7.2.686 [id number] [facility] 2023-03-18 10:55:08 2023-03-18 10:55:[address] [facility] [id number] Vikas Anthony 2023-03-17 14:41:44 2023-03-17 14:41:[address] [facility] [id number] Vikas Anthony 2023-03-09 14:20:00 2023-03-09 14:49:25 Outpatient R ALFREDO CHÁVEZ [facility] [id number] [facility] 2023-03-09 14:20:00 2023-03-09 14:40:00 [facility] 1.2.840.114 350.1.13.10 4.2.7.2.686 [id number] [id number] [facility] 2023-03-09 00:00:00 2023-03-09 00:00:00 Orders Only Doctor Unassigned, [place] [facility] 1.2.840.114 350.1.13.10 4.2.7.2.686 [id number] [facility] 2023-03-03 11:47:52 2023-03-03 11:47:[address] [facility] [id number] Vikas Anthony 2023-02-15 14:42:45 2023-02-15 14:42:[address] [facility] [id number] Vikas Anthony 2023-02-10 10:11:18 2023-02-10 10:11:[address] [facility] [id number] Vikas Anthony 2023-01-26 00:00:00 2023-01-26 00:00:00 [facility] 1.0.114 350.1.13.10 4.2.7.2.686 [id number] 059 [id number] [facility] 2023-01-21 14:25:00 2023-01-21 18:17:00 Emergency X CHAVO MARTINEZ [facility] ERT [id number] [facility] 2023-01-21 14:25:00 2023-01-21 18:17:00 Emergency Chavo Martinez [facility] 1.0.114 350.1.13.10 4.2.7.2.686 [id number] [facility] 2023-01-21 13:15:32 2023-01-21 13:15:[address] [facility] [id number] Vikas Peralta Raj 2023-01-07 13:34:22 2023-01-07 13:34:[address] [facility] [id number] Vikas Peralta [facility] 2023-01-06 13:21:58 2023-01-06 13:21:[address] [facility] [id number] Vikas Peralta [facility] 2022-12-30 10:50:22 2022-12-30 10:50:[address] [facility] [id number] Vikas Peralta [facility] 2022-12-08 16:20:00 2022-12-08 16:20:00 Outpatient JEFFERSON COOK [facility] [id number] [facility] 2022-07-13 00:00:00 2022-07-13 00:00:00 Orders Only Doctor Unassigned, [place] [facility] 1..114 350.1.13.10 4.2.7.2.686 [id number] [facility] 2020-01-29 07:57:01 2020-01-29 12:07:20 Office Visit Jefferson Christiansen [facility] Building 1.84.114 350.1.13.10 4.2.7.2.686 [id number] [id number] [facility] 2020-01-29 11:00:00 2020-01-29 11:00:00 Outpatient JEFFERSON COOK [facility] [id number] [facility] 2020-01-03 00:00:00 2020-01-03 00:00:00 Letter (Out) Clinic, [facility] Neurology [facility] 1.114 350.1.13.10 4.2.7.2.686 [id number] [facility] 2019-12-29 00:00:00 2019-12-29 00:00:00 Telephone Kiana Jesus [facility] 1.114 350.1.13.10 4.2.7.2.686 [id number] [facility] 2019-12-14 08:45:02 2019-12-14 23:59:00 Outpatient JEFFERSON COOK [facility] [id number] [facility] 2019-12-14 08:45:00 2019-12-14 23:59:00 Hospital Jefferson Burgos [facility] 1.114 350.1.13.10 4.2.7.2.686 [id number] [facility] 2019-12-14 00:00:00 2019-12-14 00:00:00 Outpatient JEFFERSON COOK [facility] [id number] [facility] 2019-12-14 00:00:00 2019-12-14 00:00:00 Orders Only Doctor Unassigned, [place] [facility] 1.114 350.1.13.10 4.2.7.2.686 [id number] [facility] 2019-11-01 00:00:00 2019-11-01 00:00:00 Telephone Jefferson Christiansen [facility] 1.2.840.114 350.1.13.10 4.2.7.2.686 [id number] [facility] 2019-10-09 14:30:13 2019-10-09 15:06:02 Office Visit Jefferson Christiansen [facility] 1.2.840.114 350.1.13.10 4.2.7.2.686 [id number] [facility] 2019-09-27 00:00:00 2019-09-27 00:00[facility]00 [facility] 1.2.840.114 350.1.13.10 4.2.7.2.686 [id number] [facility] 2019-07-19 00:00:00 2019-07-19 00:00:00 Orders Only Doctor Unassigned, [place] [facility] 1.2.840.114 350.1.13.10 4.2.7.2.686 [id number] [facility] 2019-05-10 00:00:00 2019-05-10 00:00:00 Orders Only Doctor Unassigned, [place] [facility] 1.2.840.114 350.1.13.10 4.2.7.2.686 [id number] [facility] 2014-10-25 00:00:00 2014-10-25 00:00:00 Orders Only Doctor Unassigned, [place] [facility] 1.2.840.114 350.1.13.10 4.2.7.2.686 [id number] [facility] 2013-10-25 00:00:00 2013-10-25 00:00:00 Orders Only Doctor Unassigned, [place] [facility] 1.2.840.114 350.1.13.10 4.2.7.2.686 [id number] [facility] Results Test Description Test Time Test Comments Results Result Co m[facility]:01:44* Test Item Value Reference Range Interpretation Comme nts MAGNESIUM (test code = 4259258589) 1.9 mg/dL 1.7-2.4 Lab Interpretation (test cod e = 55836-6) [facility] (15613)2025-01-16 15:01:43* Test Item Value Reference Range Interpretation Comme nts NA (test code = 7929327670) 140 mmol/L 135-145 K (test code = 4518451138) 3.9 mmol/L 3.5-5.0 CL (test code = 1218086045) 103 mmol/L 98-108 CO2 TOTAL (test code = 1961572260) 31 mmol/L 23-31 AGAP (test code = 5855275096) 6 2-16 BUN (test code = 2128350393) 21 mg/dL 7-23 GLUCOSE (test code = 0860722418) 115 mg/dL 70-110 H CREATININE (test code = 2160-0) 0.7 mg/dL 0.60-1.25 TOTAL BILI (test code = 3886578916) 0.5 mg/dL 0.1-1.1 CALCIUM (test code = 3401616436) 9.2 mg/dL 8.6-10.6 T PROTEIN (test code = 3393564043) 7.4 g/dL 6.3-8.2 ALBUMIN (test code = 8127450198) 4.1 g/dL 3.5-5.0 ALK PHOS (test code = 0178932231) 79 U/L 34-122 ALTv (test code = 1742-6) 17 U/L 5-50 AST(SGOT) (test code = 9152222404) 41 U/L 13-40 H eGFR (test code = 27864-5) 108.8 mL/min/1.73m2 CKD-EPI eGFR (2020). Assuming creatinine has been stable day-to-day for at least three months, the eGFR indicates Category G1 (>= 90 mL/min/1.73 m2) Lab Interpretation (test code = 64893-6) Abnormal [facility] Whole [id number] 14:49:45* Test Item Value Reference Range Interpretation Comme nts LACTIC ACID (test code = 0165283451) 1.97 mmol/L 0.50-2.20 Lab Interpretation (test cod e = 19227-5) Normal [facility] WITH [id number] 14:26:01* Test Item Value Reference Range Interpretation Comme nts WBC (test code = 6690-2) 7.36 4.20-10.70 RBC (test code = 789-8) 4.79 4.26-5.52 HGB (test code = 718-7) 14.5 g/dL 12.2-16.4 HCT (test code = 4544-3) 45.4 % 38.4-49.3 MCV (test code = 787-2) 94.8 fL 81.7-95.6 MCH (test code = 785-6) 30.3 pg 26.1-32.7 MCHC (test code = 786-4) 31.9 g/dL 31.2-35.0 RDW-SD (test code = 50195-6) 43.4 fL 38.5-51.6 RDW-CV (test code = 788-0) 12.6 % 12.1-15.4 PLT (test code = 777-3) 196 150-328 MPV (test code = 74186-8) 11.2 fL 9.8-13.0 NRBC/100 WBC (test code = 2661404738) 0 0.0-10.0 NRBC x10^3 (test code = 0724903995) See_Comment [Automated me ssage] The system which generated this result transmitted reference range: 10*3/?L. The reference range was not used to interpret this result as normal/abnormal. GRAN MAT (NEUT) % (test code = 770-8) 59.6 % IMM GRAN % (test code = 1493620820) 0.1 % LYMPH % (test code = 736-9) 26.1 % MONO % (test code = 5905-5) 8.4 % EOS % (test code = 713-8) 5.4 % BASO % (test code = 706-2) 0.4 % GRAN MAT x10^3(ANC) (test code = 3524721009) 4.38 10*3/uL 1.99-6.95 IMM GRAN x10^3 (test code = 6754853936) 0.00-0.06 LYMPH x10^3 (test code = 731-0) 1.92 10*3/uL 1.09-3.23 MONO x10^3 (test code = 742-7) 0.62 10*3/uL 0.36-1.02 EOS x10^3 (test code = 711-2) 0.4 10*3/uL 0.06-0.53 BASO x10^3 (test code = 704-7) 0.03 10*3/uL 0.01-0.09 [facility] GLUCOSE (AUTOMATED)2025-01-16 14:19:38* Test Item Value Reference Range Interpretation Comme nts POCT GLU (test code = 5214646757) 111 mg/dL 70-110 H Lab Interpretation (test cod e = 06354-7) Abnormal [facility] Urinalysis, [id number] 21:55:00 * Test Item Value Reference Range Interpretation Comme nts POCT U SP GRAV (test code = 3255) 1.02 mg/dl 1.005-1.025 POCT PH U (test code = 3254) 7.5 mg/dl 5-8 POCT U LEUK EST (test code = 3263) negative Negative - Negative POCT U NIT (test code = 3262) negative Negative - Negati ve POCT U PROT (test code = 3259) 30 Negative - Negat thelma POCT U GLU (test code = 3256) negative Negative - Negati ve POCT U KETONE (test code = 3258) trace Negative - Negative POCT U UROBILI (test code = 3260) negative 0.2-1 POCT U BILI (test code = 3261) negative Negative - Negat thelma POCT U BLD (test code = 3257) negative Negative - Negati ve POCT U COLOR (test code = 3266) yellow POCT U APPEAR (test code = 3267) clear [facility] [id number] 01:09:57EXAM: XR CHEST 1 2024 2:00 PM HISTORY: 54 years old Male with chest pain TECHNIQUE: Portable AP view of the chest. COMPARISON: Chest radiograph 01/21/2023. CT scan dated 05/08/2024 FINDINGS: Lungs and pleura: The lungs are clear. No focal consolidation,pneumothorax, or pleural effusion is seen. Cardiomediastinal: The cardiomediastinal silhouette is normal accountingfor technique. Musculoskeletal: No acute osseous abnormality. Unchanged expansile lesionsinvolving posterior right fifth andsixth ribs.[facility] HospitalMagnesium2024-12-[facility] 20:56:23* Test Item Value Reference Range Interpretation Comme nts MAGNESIUM (test code = 6593418798) 2.0 mg/dL 1.7-2.4 Lab Interpretation (test cod e = 14318-9) Normal [facility]-TERMINAL [id number] 20:46:27* Test Item Value Reference Range Interpretation Comme nts NT-proBNP (test code = 38346-2) <=125 Lab Interpretation (test cod e = 45824-8) Normal [facility] HospitalTROPONIN [id number] 20:44:38* Test Item Value Reference Range Interpretation Comme nts TROPONIN I (test code = 2750689411) 0.006 ng/mL <=0.034 SAE (test code = SAE) Reference (Normal) Range (defined by the 99th percentile reference limit): <= 0.034 ng/mL Note: Cardiac troponin begins to rise 3-4 hours after the onset of ischemia. Repeat in 4-6 hours if the sample was drawn within 3-4 hours of the onset of the symptom and found normal. Diagnosis of myocardial injury is made with acute changes in cTn concentrations with at least one serial sample above the 99th percentile upper reference limit (URL), taken together with the patient's clinical presentation. Biotin has been reported to cause a negative bias, interpret results relative to patient's use of biotin. Lab Interpretation (test code = 68300-8) Normal [facility]. METABOLIC PANEL (87977)2024 20:33:39* Test Item Value Reference Range Interpretation Comme nts NA (test code = 1954897793) 141 mmol/L 135-145 K (test code = 9063525222) 4.2 mmol/L 3.5-5.0 CL (test code = 6524920296) 103 mmol/L 98-108 CO2 TOTAL (test code = 5449552287) 31 mmol/L 23-31 AGAP (test code = 8592746565) 7 2-16 BUN (test code = 8249366232) 25 mg/dL 7-23 H GLUCOSE (test code = 6869958745) 111 mg/dL 70-110 H CREATININE (test code = 2160-0) 0.64 mg/dL 0.60-1.25 TOTAL BILI (test code = 6732419149) 0.2 mg/dL 0.1-1.1 CALCIUM (test code = 3633235384) 9.7 mg/dL 8.6-10.6 T PROTEIN (test code = 4176926149) 7.3 g/dL 6.3-8.2 ALBUMIN (test code = 6282530402) 4.3 g/dL 3.5-5.0 ALK PHOS (test code = 7684485745) 75 U/L 34-122 ALTv (test code = 1742-6) 18 U/L 5-50 AST(SGOT) (test code = 6045277062) 22 U/L 13-40 eGFR (test code = 90258-2) 111.8 mL/min/1.73m2 CKD-EPI eGFR (2020). Assuming creatinine has been stable day-to-day for at least three months, the eGFR indicates Category G1 (>= 90 mL/min/1.73 m2) Lab Interpretation (test code = 37359-7) Abnormal [facility] HospitalLIPASE2024-12-17 20:33:19* Test Item Value Reference Range Interpretation Comme nts LIPASE (test code = 5372494866) 87 U/L 0-220 Lab Interpretation (test cod e = 77676-5) Normal [facility] HospitalCB WITH [id number] 20:25:57* Test Item Value Reference Range Interpretation Comme nts WBC (test code = 6690-2) 7.98 4.20-10.70 RBC (test code = 789-8) 4.89 4.26-5.52 HGB (test code = 718-7) 14.1 g/dL 12.2-16.4 HCT (test code = 4544-3) 45.5 % 38.4-49.3 MCV (test code = 787-2) 93.0 fL 81.7-95.6 MCH (test code = 785-6) 28.8 pg 26.1-32.7 MCHC (test code = 786-4) 31.0 g/dL 31.2-35.0 L RDW-SD (test code = 27160-6) 41.6 fL 38.5-51.6 RDW-CV (test code = 788-0) 12.1 % 12.1-15.4 PLT (test code = 777-3) 192 150-328 MPV (test code = 64389-7) 11.8 fL 9.8-13.0 NRBC/100 WBC (test code = 1167613525) 0.0 0.0-10.0 NRBC x10^3 (test code = 2792651924) See_Comment [Automated messa ge] The system which generated this result transmitted reference range: 10*3/?L. The reference range was not used to interpret this result as normal/abnormal. GRAN MAT (NEUT) % (test code = 770-8) 62.4 % IMM GRAN % (test code = 7704162629) 0.40 % LYMPH % (test code = 736-9) 23.4 % MONO % (test code = 5905-5) 10.2 % EOS % (test code = 713-8) 3.0 % BASO % (test code = 706-2) 0.6 % GRAN MAT x10^3(ANC) (test code = 9751520456) 4.98 10*3/uL 1.99-6.95 IMM GRAN x10^3 (test code = 9888003581) 0.03 10*3/uL 0.00-0.06 LYMPH x10^3 (test code = 731-0) 1.87 10*3/uL 1.09-3.23 MONO x10^3 (test code = 742-7) 0.81 10*3/uL 0.36-1.02 EOS x10^3 (test code = 711-2) 0.24 10*3/uL 0.06-0.53 BASO x10^3 (test code = 704-7) 0.05 10*3/uL 0.01-0.09 Lab Interpretation (test code = 09657-1) Abnormal [facility] THORAX WO [id number] 14:58:35 PROCEDURE: CT CHEST WITHOUT CONTRAST - CHEST PROTOCOL CLINICAL INDICATION: abnormal CT with rib fracture/lesion. Follow up ? Comparison: ?CT dated 11/30/2023 TECHNIQUE: Volumetric images of the chest were acquired (from lung apicesto bases).Images were reconstructed at 2.5 mm slice thickness. MIP axi alimages, coronal and sagittal reformats were also submitted forinterpretation. FINDINGS: Devices: None LUNGS AND PLEURA: The lungs are well-expanded and clear. No focal opacitiesare identified. 7 mm(9 x 5 mm) right upper lobe is elongated nodule/scaris noted. Additional scattered small micronodules are also seen. Nosuspicious nodules. No pleural abnormality detected. LYMPH NODES: Scattered small lymph nodes in both sides of the mediastinumand hilar regions. No evidence of intrathoracic lymphadenopathy. MEDIASTINUM AND LOWER NECK: No central airway lesions are detected. Theesophagus is within normal limits. Again noted the enlarged right thyroidlobe with 2.8 cm hypoattenuating nodule inferiorly. HEART AND GREAT VESSELS: The heart is normal in size. No pericardialabnormalities are identified. The thoracic aorta is normal in caliber.The pulmonary trunk is normal in caliber. VISUALIZED UPPER ABDOMEN: Hepatic and renal cysts noted. OSSEOUS STRUCTURES AND SOFT TISSUES: At least 2 expansile heterogenouslesions involving the right fourth and fifth ribs are again seen andunchanged comparedto prior exam. Additional small scattered similarlesions versus chronic remodeling from prior fractures are also seen.Remote rib fractures noted bilaterally. The soft tissues appear normal.[facility] Urinalysis, [id number] 19:57:00* Test Item Value Reference Range Interpretation Comme nts POCT U SP GRAV (test code = 3255) 1.020 mg/dl 1.005-1.025 POCT PH U (test code = 3254) 6.0 mg/dl 5-8 POCT U LEUK EST (test code = 3263) Trace Negative - Negative POCT U NIT (test code = 3262) Negative Negative - Negati ve POCT U PROT (test code = 3259) 30 Negative - Negative POCT U GLU (test code = 3256) Negative Negative - Negati ve POCT U KETONE (test code = 3258) Negative Negative - Negative POCT U UROBILI (test code = 3260) 1.0 mg/dl 0.2-1 POCT U BILI (test code = 3261) small Negative - Negative POCT U BLD (test code = 3257) Negative Negative - Negati ve POCT U COLOR (test code = 3266) yellow POCT U APPEAR (test code = 3267) clear [facility],POST-VOID RES,US,[id number] 19:57:00* Test Item Value Reference Range Interpretation Comme nts PVR (URINE VOLUME) (test code = 5193) 24 ml 0-100 [facility] Ur[facility]ysis, [id number] 19:57:00 * Test Item Value Reference Range Interpretation Comme nts POCT U SP GRAV (test code = 3255) 1.020 mg/dl 1.005-1.025 POCT PH U (test code = 3254) 6.0 mg/dl 5-8 POCT U LEUK EST (test code = 3263) Trace Negative - Negative POCT U NIT (test code = 3262) Negative Negative - Negati ve POCT U PROT (test code = 3259) 30 Negative - Negative POCT U GLU (test code = 3256) Negative Negative - Negati ve POCT U KETONE (test code = 3258) Negative Negative - Negative POCT U UROBILI (test code = 3260) 1.0 mg/dl 0.2-1 POCT U BILI (test code = 3261) small Negative - Negative POCT U BLD (test code = 3257) Negative Negative - Negati ve POCT U COLOR (test code = 3266) yellow POCT U APPEAR (test code = 3267) clear [facility],POST-VOID RES,US,[id number] 19:57:00* Test Item Value Reference Range Interpretation Comme nts PVR (URINE VOLUME) (test code = 5193) 24 ml 0-100 [facility] HospitalREFERRAL- REQUEST/[id number] 16:49:08 Ordered by an unspecified provider.[facility] Urinalysis, [id number] 14:55:00* Test Item Value Reference Range Interpretation Comme nts POCT U SP GRAV (test code = 3255) 1.025 mg/dl 1.005-1.025 POCT PH U (test code = 3254) 6.5 mg/dl 5-8 POCT U LEUK EST (test code = 3263) Negative Negative - Negative POCT U NIT (test code = 3262) Negative Negative - Negati ve POCT U PROT (test code = 3259) 30 Negative - Negative A POCT U GLU (test code = 3256) Negative Negative - Negati ve POCT U KETONE (test code = 3258) Negative Negative - Negative POCT U UROBILI (test code = 3260) 0.2 mg/dl 0.2-1 POCT U BILI (test code = 3261) small Negative - Negative A POCT U BLD (test code = 3257) Negative Negative - Negati ve POCT U COLOR (test code = 3266) Yellow POCT U APPEAR (test code = 3267) Clear Lab Interpretation (test cod e = 40843-0) [facility] [id number] 14:55:00 * Test Item Value Reference Range Interpretation Comme nts POCT U SP GRAV (test code = 3255) 1.025 mg/dl 1.005-1.025 POCT PH U (test code = 3254) 6.5 mg/dl 5-8 POCT U LEUK EST (test code = 3263) Negative Negative - Negative POCT U NIT (test code = 3262) Negative Negative - Negati ve POCT U PROT (test code = 3259) 30 Negative - Negative A POCT U GLU (test code = 3256) Negative Negative - Negati ve POCT U KETONE (test code = 3258) Negative Negative - Negative POCT U UROBILI (test code = 3260) 0.2 mg/dl 0.2-1 POCT U BILI (test code = 3261) small Negative - Negative A POCT U BLD (test code = 3257) Negative Negative - Negati ve POCT U COLOR (test code = 3266) Yellow POCT U APPEAR (test code = 3267) Clear Lab Interpretation (test cod e = 80748-5) Abnormal [facility] HospitalBLADDER SCAN [id number] 15:52:00* Test Item Value Reference Range Interpretation Comme nts PVR (URINE VOLUME) (test code = 5193) 41 ml 0-100 [facility] [id number] 15:52:00* Test Item Value Reference Range Interpretation Comme nts PVR (URINE VOLUME) (test code = 5193) 41 ml 0-100 [facility] [id number] 15:52:00* Test Item Value Reference Range Interpretation Comme nts PVR (URINE VOLUME) (test code = 5193) 41 ml 0-100 [facility])2023-12-01 15:02:25* Test Item Value Reference Range Interpretation Comme nts POCT GLU (test code = 7679253802) 78 mg/dL 70-110 Lab Interpretation (test cod e = 81627-7) [facility] (25990)2023-09-17 23:48:36* Test Item Value Reference Range Interpretation Comme nts NA (test code = 3462172271) 136 mmol/L 135-145 K (test code = 2872527313) 4.0 mmol/L 3.5-5.0 CL (test code = 7894968516) 102 mmol/L 98-108 CO2 TOTAL (test code = 3199806398) 22 mmol/L 23-31 L AGAP (test code = 8252047890) 12 2-16 BUN (test code = 3662362056) 27 mg/dL 7-23 H GLUCOSE (test code = 9871531620) 131 mg/dL 70-110 H CREATININE (test code = 1531571256) 1.05 mg/dL 0.60-1.25 TOTAL BILI (test code = 0399113203) 0.5 mg/dL 0.1-1.1 CALCIUM (test code = 9136047560) 9.4 mg/dL 8.6-10.6 T PROTEIN (test code = 4657867216) 7.1 g/dL 6.3-8.2 ALBUMIN (test code = 0088526722) 4.0 g/dL 3.5-5.0 ALK PHOS (test code = 1216050462) 72 U/L 34-122 ALTv (test code = 1742-6) 20 U/L 5-50 AST(SGOT) (test code = 4480328773) 24 U/L 13-40 eGFR (test code = 81462-8) 84.4 mL/min/1.73m2 CKD-EPI eGFR (2020). Assuming creatinine has been stable day-to-day for at least three months, the eGFR indicates Category G2 (60 - 89 mL/min/1.73 m2) Lab Interpretation (test code = 50697-8) Abnormal [facility] [id number] 23:37:14* Test Item Value Reference Range Interpretation Comme nts WBC (test code = 6690-2) 7.54 See_Comment [Automated gAutoa ge] The system which generated this result transmitted reference range: 4.20 - 10.70 10*3/?L. The reference range was not used to interpret this result as normal/abnormal. RBC (test code = 789-8) 4.53 See_Comment [Automated messa ge] The system which generated this result transmitted reference range: 4.26 - 5.52 10*6/?L. The reference range was not used to interpret this result as normal/abnormal. HGB (test code = 718-7) 13.2 g/dL 12.2-16.4 HCT (test code = 4544-3) 41.3 % 38.4-49.3 MCV (test code = 787-2) 91.2 fL 81.7-95.6 MCH (test code = 785-6) 29.1 pg 26.1-32.7 MCHC (test code = 786-4) 32.0 g/dL 31.2-35.0 RDW-SD (test code = 96199-0) 44.4 fL 38.5-51.6 RDW-CV (test code = 788-0) 13.2 % 12.1-15.4 PLT (test code = 777-3) 219 See_Comment [Automated gAutoa ge] The system which generated this result transmitted reference range: 150 - 328 10*3/?L. The reference range was not used to interpret this result as normal/abnormal. MPV (test code = 77008-6) 11.8 fL 9.8-13.0 NRBC/100 WBC (test code = 7788623780) 0.0 See_Comment [Automated me ssage] The system which generated this result transmitted reference range: 0.0 - 10.0 /100 WBCs. The reference range was not used to interpret this result as normal/abnormal. NRBC x10^3 (test code = 6440949735) See_Comment [Automated me ssage] The system which generated this result transmitted reference range: 10*3/?L. The reference range was not used to interpret this result as normal/abnormal. GRAN MAT (NEUT) % (test code = 770-8) 56.3 % IMM GRAN % (test code = 3394493135) 0.30 % LYMPH % (test code = 736-9) 31.0 % MONO % (test code = 5905-5) 8.6 % EOS % (test code = 713-8) 3.1 % BASO % (test code = 706-2) 0.7 % GRAN MAT x10^3(ANC) (test code = 1272082368) 4.25 10*3/uL 1.99-6.95 IMM GRAN x10^3 (test code = 1045731885) 0.00-0.06 LYMPH x10^3 (test code = 731-0) 2.34 10*3/uL 1.09-3.23 MONO x10^3 (test code = 742-7) 0.65 10*3/uL 0.36-1.02 EOS x10^3 (test code = 711-2) 0.23 10*3/uL 0.06-0.53 BASO x10^3 (test code = 704-7) 0.05 10*3/uL 0.01-0.09 [facility]OLIC PAN[facility] (69962)2023-06-15 17:26:47* Test Item Value Reference Range Interpretation Comme nts NA (test code = 5067397354) 140 mmol/L 135-145 K (test code = 1504227405) 3.9 mmol/L 3.5-5.0 CL (test code = 2436677622) 99 mmol/L 98-108 CO2 TOTAL (test code = 5281461083) 32 mmol/L 23-31 H AGAP (test code = 6972083634) 9 2-16 BUN (test code = 6540744739) 33 mg/dL 7-23 H GLUCOSE (test code = 0205499890) 84 mg/dL 70-110 CREATININE (test code = 5022259718) 0.70 mg/dL 0.60-1.25 TOTAL BILI (test code = 5331186574) 0.3 mg/dL 0.1-1.1 CALCIUM (test code = 3563566066) 9.3 mg/dL 8.6-10.6 T PROTEIN (test code = 3197026918) 7.5 g/dL 6.3-8.2 ALBUMIN (test code = 7788299638) 4.0 g/dL 3.5-5.0 ALK PHOS (test code = 3048894596) 82 U/L 34-122 ALTv (test code = 1742-6) 18 U/L 5-50 AST(SGOT) (test code = 0983501582) 22 U/L 13-40 eGFR (test code = 2106796635) 118.0 mL/min/1.73m2 SAE (test code = SAE) Association of Glomerular Filtration Rate (GFR) and Staging of Kidney Disease* + --+ --+ ------+| GFR (mL/min/1.73 m2) ?| With Kidney Damage ?| ?Without Kidney Damage+ --------+ --------+ +| ?>90 ?| ?Stage one ?| ? Normal ?+ ---+ ---+ -------+| ?60-89 ?| ?Stage two ?| ? Decreased GFR ? + --+ --+ ------+| ?30-59 ?| ?Stage three ?| ? Stage three ? + --+ --+ ------+| ?15-29 ?| ?Stage four ? | ? Stage four ?+ ---+ ---+ -------+| ?<15 (or dialysis) ? ?| ?Stage five ? | ? Stage five ?+ ---+ ---+ -------+ *Each stage assumes the associated GFR level has been in effect for at least three months. ?Stages 1 to 5, with or without kidney disease, indicate chronic kidney disease. Notes: Determination of stages one and two (with eGFR >59mL/min/1.73 m2) requires estimation of kidney damage for at least three months as defined by structural or functional abnormalities of the kidney, manifested by either:Pathological abnormalities or Markers of kidney damage (including abnormalities in the composition of the blood or urine or abnormalities in imaging tests). Lab Interpretation (test code = 89216-2) Abnormal [facility] WITH [id number] 17:15:44* Test Item Value Reference Range Interpretation Comme nts WBC (test code = 6690-2) 7.40 See_Comment [Automated gAutoa ge] The system which generated this result transmitted reference range: 4.20 - 10.70 10*3/?L. The reference range was not used to interpret this result as normal/abnormal. RBC (test code = 789-8) 4.53 See_Comment [Automated gAutoa ge] The system which generated this result transmitted reference range: 4.26 - 5.52 10*6/?L. The reference range was not used to interpret this result as normal/abnormal. HGB (test code = 718-7) 13.4 g/dL 12.2-16.4 HCT (test code = 4544-3) 42.0 % 38.4-49.3 MCV (test code = 787-2) 92.7 fL 81.7-95.6 MCH (test code = 785-6) 29.6 pg 26.1-32.7 MCHC (test code = 786-4) 31.9 g/dL 31.2-35.0 RDW-SD (test code = 88259-3) 44.7 fL 38.5-51.6 RDW-CV (test code = 788-0) 13.2 % 12.1-15.4 PLT (test code = 777-3) 183 See_Comment [Automated gAutoa ge] The system which generated this result transmitted reference range: 150 - 328 10*3/?L. The reference range was not used to interpret this result as normal/abnormal. MPV (test code = 16520-5) 11.9 fL 9.8-13.0 NRBC/100 WBC (test code = 5763919207) 0.0 See_Comment [Automated me ssage] The system which generated this result transmitted reference range: 0.0 - 10.0 /100 WBCs. The reference range was not used to interpret this result as normal/abnormal. NRBC x10^3 (test code = 7755007318) See_Comment [Automated me ssage] The system which generated this result transmitted reference range: 10*3/?L. The reference range was not used to interpret this result as normal/abnormal. GRAN MAT (NEUT) % (test code = 770-8) 62.8 % IMM GRAN % (test code = 2863928144) 0.30 % LYMPH % (test code = 736-9) 23.9 % MONO % (test code = 5905-5) 9.1 % EOS % (test code = 713-8) 3.4 % BASO % (test code = 706-2) 0.5 % GRAN MAT x10^3(ANC) (test code = 8622462710) 4.65 10*3/uL 1.99-6.95 IMM GRAN x10^3 (test code = 5043406387) 0.00-0.06 LYMPH x10^3 (test code = 731-0) 1.77 10*3/uL 1.09-3.23 MONO x10^3 (test code = 742-7) 0.67 10*3/uL 0.36-1.02 EOS x10^3 (test code = 711-2) 0.25 10*3/uL 0.06-0.53 BASO x10^3 (test code = 704-7) 0.04 10*3/uL 0.01-0.09 [facility]PRE[facility] [id number] 05:24:18* Test Item Value Reference Range Interpretation Comme nts GLUCOSE (test code = 2217) 98 MG/DL 70-99 BUN (test code = 2208) 26 MG/DL 6-20 H CREATININE (test code = 2214) 0.79 MG/DL 0.80-1.40 L eGFR (2020 CKD-EPI) (test code = 88766) 106 ML/MIN/1.73 >60 CALC BUN/CREAT (test code = 2235) 33 RATIO 6-28 H SODIUM (test code = 2231) 143 MEQ/L 133-146 POTASSIUM (test code = 2228) 4.2 MEQ/L 3.5-5.4 CHLORIDE (test code = 5) 102 MEQ/L 95-107 CARBON DIOXIDE (test code = 2205) 32 MEQ/L 19-31 H CALCIUM (test code = 2208) 10.0 MG/DL 8.5-10.5 PROTEIN, TOTAL (test code = 2228) 7.1 G/DL 6.1-8.3 ALBUMIN (test code = 2200) 4.6 G/DL 3.5-5.2 CALC GLOBULIN (test code = 0) 2.5 G/DL 1.9-3.7 CALC A/G RATIO (test code = 2233) 1.8 RATIO 1.0-2.6 BILIRUBIN, TOTAL (test code = 2206) 0.3 MG/DL See_Comment [Automated me ssage] The system which generated this result transmitted reference range: <=1.2. The reference range was not used to interpret this result as normal/abnormal. ALKALINE PHOSPHATASE (test code = 2203) 102 U/L 40-121 AST (test code = 2217) 16 U/L 9-50 ALT (test code = 2219) 16 U/L 5-50 UNLESS OTHERWISE INDICATED, ALL TESTING PERFORMED AT [facility] [address] [place] [address] FRENCH FOLDER: LIZZ CANTU M.D. [place] NUMBER [id number] [facility] [place]. [id number] VITAMIN B 12 AND FOLIC [id number] 07:04:53* Test Item Value Reference Range Interpretation Comme [facility] VITAMIN B-12 (test code = 2840) 325 PG/ML 200-950 FOLIC ACID (test code = 2695) 11.2 UG/L SEE BELOW INTERPRETI VE RANGES DEFICIENCY . . . . . . . . . . . . . . . UG/L <4.0 POSSIBLE DEFICIENCY. . . . . . . . . . . UG/L 4.0-5.9 SUFFICIENT . . . . . . . . . . . . . . . UG/L >=6.0 TSH, THIRD [id number] 07:04:53* Test Item Value Reference Range Interpretation Comme [facility] TSH, THIRD GENERATION (test code = 2821) 1.120 UIU/ML 0.400-4.100 [facility] has impo rtant pathology staff changes effective 11/11/2022. New pathology staff will provide uninterrupted, excellent patient care and clinical consultation. See URL: [email or web address] UNLESS OTHERWISE INDICATED, ALL TESTING PERFORMED AT [facility] [address] [place] [id number] FRENCH FOLDER: LIZZ CANTU M.D. [place] NUMBER [id number] [facility] [place] [id number] LIPID [id number] 06:15:59* Test Item Value Reference Range Interpretation Comme nts CHOLESTEROL (test code = 2210) 163 MG/DL <200 TRIGLYCERIDES (test code = 2232) 110 MG/DL <150 HDL CHOLESTEROL (test code = 2220) 41 MG/DL >39 CALC LDL CHOL (test code = 2237) 101 MG/DL <100 H NOTE: CALCULATED LDL IS BASED ON BERTHA-FERNANDES METHOD WHICHINCLUDES ADJUSTABLE TRIGLYCERIDE:VLDL CHOLESTEROL RATIO.THIS FACTOR VARIES BY MEASURED TRIGLYCERIDE AND NON-HDLCHOLESTEROL CONCENTRATIONS WITH INCREASED CALCULATED LDL SEENIN HIGHER TRIGLYCERIDE OR LOWER NON-HDL SPECIMENS. FOR MOREINFORMATION, SEE CLIENT ANNOUNCEMENT AT [email or web address] RATIO LDL/HDL (test code = 2238) 2.46 RATIO <3.55 COMPREHENSIVE METABOLIC [id number] 06:15:59* Test Item Value Reference Range Interpretation Comme nts GLUCOSE (test code = 2217) 110 MG/DL 70-99 H BUN (test code = 2208) 16 MG/DL 6-20 CREATININE (test code = 2214) 0.79 MG/DL 0.80-1.40 L eGFR (2020 CKD-EPI) (test code = 86958) 106 ML/MIN/1.73 >60 CALC BUN/CREAT (test code = 2235) 20 RATIO 6-28 SODIUM (test code = 2231) 145 MEQ/L 133-146 POTASSIUM (test code = 2228) 4.2 MEQ/L 3.5-5.4 CHLORIDE (test code = 2215) 102 MEQ/L 95-107 CARBON DIOXIDE (test code = 2206) 27 MEQ/L 19-31 CALCIUM (test code = 2209) 10.2 MG/DL 8.5-10.5 PROTEIN, TOTAL (test code = 2228) 7.2 G/DL 6.1-8.3 ALBUMIN (test code = 2200) 4.2 G/DL 3.5-5.2 CALC GLOBULIN (test code = 2239) 3.0 G/DL 1.9-3.7 CALC A/G RATIO (test code = 2233) 1.4 RATIO 1.0-2.6 BILIRUBIN, TOTAL (test code = 2206) 0.4 MG/DL See_Comment [Automated me ssage] The system which generated this result transmitted reference range: <=1.2. The reference range was not used to interpret this result as normal/abnormal. ALKALINE PHOSPHATASE (test code = 2203) 99 U/L 40-121 AST (test code = 2217) 18 U/L 9-50 ALT (test code = 2218) 14 U/L 5-50 HEMOGLOBIN [id number] 05:06:39* Test Item Value Reference Range Interpretation Comme nts HEMOGLOBIN A1c (test code = 08354) 5.6 % 4.2-5.6 CBC W/AUTO DIFF WITH [id number] 04:26:58* Test Item Value Reference Range Interpretation Comme nts WBC (test code = 1001) 7.9 K/UL 3.5-11.0 RBC (test code = 1002) 4.97 M/UL 4.50-6.10 HEMOGLOBIN (test code = 1003) 15.0 G/DL 13.5-17.0 HEMATOCRIT (test code = 1004) 44.4 % 40.0-51.0 MCV (test code = 1005) 89.3 fL 80.0-99.0 MCH (test code = 1006) 30.2 PG 25.0-33.0 MCHC (test code = 1007) 33.8 G/DL 31.0-36.0 RDW (test code = 1038) 12.9 % 11.5-15.0 NEUTROPHILS (test code = 1008) 66.9 % LYMPHOCYTES (test code = 1010) 20.9 % MONOCYTES (test code = 1011) 7.8 % EOSINOPHILS (test code = 1012) 2.9 % BASOPHILS (test code = 1013) 0.5 % IMMATURE GRANULOCYTES (test code = 1036) 1.0 % NUCLEATED RBCS (test code = 1065) 0.0 /100 WBC'S See_Comment [Automated [employer]] The system which generated this result transmitted reference range: 0.0. The reference range was not used to interpret this result as normal/abnormal. PLATELET COUNT (test code = 1015) 229 K/UL 130-400 ABSOLUTE NEUTROPHILS (test code = 1066) 5.28 K/UL 1.50-7.50 ABSOLUTE LYMPHOCYTES (test code = 1067) 1.65 K/UL 1.00-4.00 ABSOLUTE MONOCYTES (test code = 1068) 0.62 K/UL 0.20-1.00 ABSOLUTE EOSINOPHILS (test code = 1040) 0.23 K/UL 0.00-0.50 ABSOLUTE BASOPHILS (test code = 1069) 0.04 K/UL 0.00-0.20 ABS IMMATURE GRANULOCYTES (test code = 1020) 0.08 K/UL 0.00-0.10 ABS NUCLEATED RBCS (test code = 83369) 0.00 K/UL 0.00-0.11 MR BRAIN WO [id number] 14:49:49Stable MRI compared to multiple prior exams without acute intracranialfinding such as acute ischemia, intracranial hemorrhage or mass effect.HISTORY:unexplained spells TECHNIQUE: MRI of the brain wasperformed without IV contrast. COMPARISON: Multiple prior exams including the most recent from 12/15/2016. FINDINGS: A small T2 hyperintense lesion in the left frontal lobe (8:17) prior exam.This couldrepresent a perivascular space or a subcentimeter neural [...] of gradient bloomingis identified. Soft tissue lipoma incidentallyidentified in the leftsuboccipital region, unchanged from the last MRI. [facility], Radiant Results Inft User - 12/14/2019 9:50 AM CDTHISTORY:unexplained spells TECHNIQUE: MRI of the brain was performed without IV contrast.COMPARISON: Multiple prior exams including the most recent from 12/15/2016.FINDINGS:A small T2 hyperintense lesion in the left [...] infarct. No pathologicalextra-axial fluid collection is seen. Noabnormal foci of gradient bloomingis identified. Soft tissue lipoma incidentally identified in the l eftsuboccipital region, unchanged from the last MRI.IMPRESSIONStable MRI compared to multiple priorexams without acute intracranialfinding such as acute ischemia, intracranial hemorrhage or mass effect.[facility] Notes Date/Time Note Provider Source 2025-06-14 15:18:47 Left mssage of () private voicemail advising that on our end we do not have anything regarding Alfonso Suarez. [facility] - Health 2025-06-14 15:06:13 Jaron Michaels is a 54 year old male Ann, the patient's sister and POA would like a call from the nurse. She said when she was looking at the papers from the last appointment she saw something for Nov 4 with Alfonso Suarez. She said that she didn't know anything about it. She didn't know if it was something that was scheduled and what exactly it is for. Please call [phone] to advise. Brittaney Bañuelos [facility] 2025-06-11 08:39:29 Images from the original note were not included. Notes: Last Refilled: amLODIPine (NORVASC) 5 mg tablet Sig: Take 1 tablet by mouth in the morning. Disp: 90 tablet Refills: 1 Start: 06/10/2025 Class: eRX Non-formulary For: Uncontrolled hypertension Last ordered: 7 months ago (10/19/2024) by CHRISTIAN Pedroza [employer] [employer]ers [id number]/10/2025 05:51 PM Protocol Details Valid encounter within last 12 months To be filled at: [facility] [address] [place] [address] Recent Visits Date Type Provider Dept 05/28/25 Office Visit Zack Newsome MD [facility] 03/07/25 Office Visit Zack Newsome MD [facility] 10/19/24 Office Visit Bree Brice FNP [facility] 03/27/24 Office Visit Salima Moreno MD [facility] 03/09/24 Office Visit Bree Brice FNP [facility] Showing recent visits within past 540 days with a meds authorizing provider and meeting all other requirements Future Appointments Date Type Provider Dept 09/28/25 Appointment Zack Newsome MD [facility] Showing future appointments within next 150 days with a meds authorizing provider and meeting all other requirements [facility] 2025-05-03 14:24:58 Spoke with Nita at [facility], confirmed new fax number and refaxed to her. [facility] 2025-05-03 10:50:23 Copied from [facility] #[id number]. Topic: Clinical - Paperwork/Forms >> May 03, 2025 10:47 AM Patient Legal Officer wrote: Jaron Mcihaels is a 54 year old male Le with [facility] is calling checking on the status of the Medical Necessity and Level of Care Assessment Form the clinic received on 04.18.25 and when it will be review, signed and sent back to [facility]. Le with [facility] would like a call back at the earliest conveience regarding this form. (See previous encounter, dated 04.18.25, for further details) Please advise Ash Powers [facility] 2025-04-18 11:09:03 Received Medical Necessity and Level of Care Assessment from [facility], have placed in provider's box for signature. Windy Canales [facility] 2025-03-07 16:15:00 Images from the original note were not included. Venipuncture collection performed by clean technique on the back of right hand. Total of 1 attempts were made. Slight pressure and a bandage/dressing were applied to the site(s). The patient experienced no complications. The following specimens were processed according to instructions and sent to [facility] laboratories per lab order on today: LT BLUE SST RED LAV 2 PPT LTGREEN (LiHep) 1 DK GREEN (SodH) LEVI DK BLUE (K2) DK BLUE (S) ACD Blood Culture NIPT/NTD Patient has been identified by name and was provided with cup, antiseptic towelette, and clean catch instructions. 1 urine specimen(s) sent. Unpreserved Urine Culture Aptima tube Other urine electophoresis [facility] 2025-02-14 16:02:[address] Gaines in [place] Carol Valderrama MA [facility] 2025-02-14 15:23:01 Patient was denied for Orthovisc Injection . This is an ongoing issue with insurance not approving injection after explain patient health. Patient is not able to be transported to [facility]. Does Dr. Post know any local providers in the area (outside of [facility]) that he recommends that might be able to inject : [id number] - Euflexxa [id number] - Durolane [id number] - Gelsyn-3 Mara Moyabron [facility] 2025-02-14 11:42:15 Received [facility] Clinical Request. Placed in provider box for review. Ulysses Manzo [facility] 2025-02-13 15:24:58 Patient was denied for Orthovisc Injection . This is an ongoing issue with insurance not approving injection after explain patient health. Patient is not able to be transported to [facility]. Does Dr. Post know any local providers in the area (outside of [facility]) that he recommends that might be able to inject : [id number] - Euflexxa [id number] - Durolane J7328 - Gelsyn-3 Mara Nayak [facility] 2025-02-09 14:33:42 Pt sister stated she spoke with someone already. Yanelis Bello [facility] 2025-02-07 16:32:34 Jaron Michaels is a 54 year old male Sister of patient is calling requesting to speak with Lucia in Dr. Bolanos clinic with Orthopedics. Please advise. Joyce Paul [facility] 2025-02-02 16:28:00 of pt notified. UC/Er warnings given for over the Holiday weekend. Understanding verbalized. [facility] 2025-02-02 16:24:28 I agree URO-UROLOGY STAFF [facility] 2025-02-02 15:56:34 Spoke with of pt, he is currently taking a nap. She states that he was having dysuria prior to seizure episode and er visit on 01/16/25. In the er, he was given IV antibiotics and sent home with rx of bactrim. To her knowledge, he completed the rx and is still having dysuria. Orders for urine cx placed and appt scheduled for collection on Wednesday. Routed to Dr Hidalgo for review. [facility] 2025-02-02 15:17:43 Patients called and stated patient went to ER on 01/16 due to a seizure and was told at discharge he had UTI and was given antibiotics. She stated patient is still having UTI symptom and wants to know if patient needs to make a follow up appointment or if patient would need more antibiotics. Please call patient to [phone] Tawny Rangel [facility] 2025-02-01 09:31:10 Copied from [facility] #[id number]. Topic: Appointment - Cancel Appointment >> February 01, 2025 9:30 AM Patient Legal Officer wrote: Advised patient had procedure wont make appointment. Spouse of Patient requested a callback once the medication is received at clinic. Carola Bates [facility] 2025-01-31 16:35:12 Hello, The prior authorization has been denied for the following medication: Drug: Orthovisc Insurance: [employer] Medicaid CoverMyMeds [place]: [id number] Reason: Orthovisc is not a covered medication under the patient's pharmacy benefits. This class of medication may have to be run under the patient's medical benefits. Thank you Rene Shay CPhT [facility] 2025-01-31 15:33:42 Patients sister is very upset. She said it is bull shit and zero excuse. I did apologize for her inconvenience. Gave her the number to pharmacy. Lizzie Mccann 01/31/2025 3:34 PM [facility] 2025-01-31 15:25:21 Called [facility] pharmacy and spoke to Arcelia from Call Center in Specialty pharmacy and she said the authorization needs to be completed. She will forward my message to Daisy the person who is in charge of the prior authorizations. Will inform patient of the status. Lizzie Mccann 01/31/2025 3:30 PM [facility] 2025-01-31 15:13:57 Jaron Michaels is a 54 year old male Sister is calling . Still waiting on injection status for 02/01 appt Tamiko Landon [facility] 2025-01-30 15:51:16 Jaron Michaels is a 54 year old male Sister calling to follow up on Knee injection received for appt 02/01. Has been tring to get since november. [facility] 2025-01-16 12:22:02 Pt given printed and verbal discharge instructions regarding syncope and acute cystitis without hematuria, encouraged hydration. Prescriptions provided. Discussed antibiotic therapy and to take until all completed unless adverse reaction occurs - if occurs, discontinue medication and follow up with pcp/seek medical attention. Pt verbalized understanding of instructions, pt awake alert oriented, resp reg unlabored, skin w/d, color appropriate for race, moves all ext well, pt encouraged to follow up with pcp. Advised to seek medical attention for new/prolonged/worsening of symptoms. Symptoms addressed. No adverse reaction to meds given in ER noted upon discharge. PIV d'cd, dressing to site, catheter intact. Pt leaving amb with steady gait, in no apparent distress. Left with mother. Cherrie Taveras RN [facility] 2025-01-16 09:06:22 Code 99 called to [facility]. On arrival pt is slumped over to left side in chair. Pt breathing and had a pulse. Mother beside him. Pt stimulated with physical stimuli and aroused. He was disoriented at first. Then after a few minutes he told us his name and that he was at the hospital for a test. 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 Patient reports they have been getting worse. Pt stood and was transported to 11 via stretcher. Kelli Vargas RN [facility] 2025-01-16 08:56:00 Associated Order(s): EKG-12 Lead ROUTINE ONCE Pre-Procedure Diagnose(s): Syncope, unspecified syncope type Post-Procedure Diagnose(s): Syncope, unspecified syncope type [facility] Emergency Department Note Patient Name: Jaron Michaels Date of : 1970 54 year old male Treatment Room: TR11/TR11 Primary Care Physician: Bree Brice Patient Escorted by: Family [5] Mode of Arrival: Personal means [1] EMS Treatment Prior to ED Arrival: COAL TRIMMER treatment: None Travel and Exposure Screening: Symptoms Does patient have any of these symptoms?: (not recorded) Exposure Screening Has patient had contact with someone with a communicable disease in the last month?: (not recorded) Diseases exposed to:: (not recorded) Is Patient ?: (not recorded) Exposure Date: (not recorded) Chief Complaint: Chief Complaint Patient presents with Other Unresponsive History of Present Illness: [facility] response just prior to arrival. He was here with his mother to have a urological test performed. He reports he felt lightheaded and dizzy earlier and then the next thing he knows he was in the hospital bed. He appeared to have a syncopal episode while sitting in his walker. He does get around using a walker. No chest pain or pressure. No shortness of breath. No nausea, vomiting or diarrhea. He did not eat this morning which is not unusual for him. He reports he feels more like his normal self currently. 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 He admits to compliance with his medication. Here for evaluation. Past Medical History/Immunizations: Past Medical History: Diagnosis Date Essential (primary) hypertension Obesity (BMI 30-39.9) Seizures 20 years ago Tetanus received in last 5 years: No Allergies: No Known Allergies Past Social History: Tobacco Use Former; Cigarettes: Quit 2021 Passive Exposure: Never Smokeless Tobacco: Never used smokeless tobacco. Comments: vapes Alcohol Use No. Drug Use No. Sexual Activity Not sexually active. Past Surgical History: Past Surgical History: Procedure Laterality Date COLONOSCOPY N/A 12/30/2015 Surgeon: Leon Xiong DO; Location: [place] [facility] COLONOSCOPY N/A 03/08/2017 Surgeon: Leon Xiong DO; Location: [place] [facility] COLONOSCOPY N/A 06/11/2017 Surgeon: Alfonso Suarez MD; Location: [place] [facility] COLONOSCOPY N/A 11/21/2018 Surgeon: Leon Xiong DO; Location: [place] [facility] LIPOMA EXCISION Right leg Review of Systems: Review of Systems Constitutional: Negative for chills and fever. Respiratory: Negative for cough and shortness of breath. Cardiovascular: Negative for chest pain. Gastrointestinal: Negative for abdominal pain, nausea and vomiting. Genitourinary: Negative for dysuria. Musculoskeletal: Negative for arthralgias, neck pain and neck stiffness. Skin: Negative for wound. Neurological: Positive for light-headedness. Psychiatric/Behavioral: Negative for agitation. Endocrine: Negative for goiter. Physical Exam: ED Triage Vitals [01/16/25 0908] Weight 186 kg (410 lb) Actual or estimated Estimated by patient/family report Height 1.93 m (6' 4") BP (!) 138/101 Pulse 89 Resp 18 Temp 37.1 ?C (98.7 ?F) Temp source Oral SpO2 96 % Measured on Room air Physical Exam Vitals and nursing note reviewed. Constitutional: Appearance: Normal appearance. He is obese. HENT: Head: Normocephalic and atraumatic. Mouth/Throat: Mouth: Mucous membranes are dry. Eyes: Comments: Conjunctiva are pink bilaterally Cardiovascular: Rate and Rhythm: Normal rate and regular rhythm. Pulses: Normal pulses. Pulmonary: Effort: Pulmonary effort is normal. No respiratory distress. Abdominal: General: There is no distension. Palpations: Abdomen is soft. There is no mass. Tenderness: There is no abdominal tenderness. There is no guarding or rebound. Hernia: No hernia is present. Musculoskeletal: General: Normal range of motion. Cervical back: Normal range of motion and neck supple. Skin: General: Skin is warm and dry. Neurological: General: No focal deficit present. Mental Status: He is alert and oriented to person, place, and time. Comments: Speech is clear. No facial asymmetry. Handgrip right equals left. Muscle strength is 5/5 to upper extremities and lower extremities bilaterally. Radiology: No orders to display Lab Results: Lab Results URINALYSIS - Abnormal Result Value Ref Range APPEARANCE Cloudy (*) Clear COLOR Lisa (*) Yellow PH 5.0 4.8 - 8.0 SP GRAVITY 1.034 (*) 1.003 - 1.030 GLU U QUAL Normal Normal BLOOD Negative Negative KETONES Negative Negative PROTEIN 100 mg/dL (*) Negative UROBILIN Normal Normal BILIRUBIN 2 mg/dL (*) Negative NITRITE Negative Negative LEUK JACKELINE 25/uL (*) Negative RBC/HPF 2 0 - 3 HPF WBC/HPF 8 (*) 0 - 5 HPF BACTERIA Few (*) Negative MUCOUS Marked (*) Negative LPF SQ EPITH 2 HPF HYAL CAST 45 (*) <=2 LPF Ictotest Negative COMP. METABOLIC PANEL (73751) - Abnormal NA 140 135 - 145 mmol/L K 3.9 3.5 - 5.0 mmol/L CL 103 98 - 108 mmol/L CO2 TOTAL 31 23 - 31 mmol/L AGAP 6 2 - 16 BUN 21 7 - 23 mg/dL GLUCOSE 115 (*) 70 - 110 mg/dL CREATININE 0.70 0.60 - 1.25 mg/dL TOTAL BILI 0.5 0.1 - 1.1 mg/dL CALCIUM 9.2 8.6 - 10.6 mg/dL T PROTEIN 7.4 6.3 - 8.2 g/dL ALBUMIN 4.1 3.5 - 5.0 g/dL ALK PHOS 79 34 - 122 U/L ALTv 17 5 - 50 U/L AST(SGOT) 41 (*) 13 - 40 U/L eGFR 108.8 mL/min/1.73m2 POCT GLUCOSE (AUTOMATED) - Abnormal POCT GLU 111 (*) 70 - 110 mg/dL TROPONIN I - Normal TROPONIN I 0.006 <=0.034 ng/mL MAGNESIUM - Normal MAGNESIUM 1.9 1.7 - 2.4 mg/dL LACTIC ACID WHOLE BLOOD - Normal LACTIC ACID 1.97 0.50 - 2.20 mmol/L CBC WITH DIFF WBC 7.36 4.20 - 10.70 10*3/?L RBC 4.79 4.26 - 5.52 10*6/?L HGB 14.5 12.2 - 16.4 g/dL HCT 45.4 38.4 - 49.3 % MCV 94.8 81.7 - 95.6 fL MCH 30.3 26.1 - 32.7 pg MCHC 31.9 31.2 - 35.0 g/dL RDW-SD 43.4 38.5 - 51.6 fL RDW-CV 12.6 12.1 - 15.4 % PLT 196 150 - 328 10*3/?L MPV 11.2 9.8 - 13.0 fL NRBC/100 WBC 0.0 0.0 - 10.0 /100 WBCs NRBC x10 3 <0.01 10*3/?L GRAN MAT (NEUT) % 59.6 % IMM GRAN % 0.10 % LYMPH % 26.1 % MONO % 8.4 % EOS % 5.4 % BASO % 0.4 % GRAN MAT x10 3 (ANC) 4.38 1.99 - 6.95 10*3/uL IMM GRAN x10 3 <0.03 0.00 - 0.06 10*3/uL LYMPH x10 3 1.92 1.09 - 3.23 10*3/uL MONO x10 3 0.62 0.36 - 1.02 10*3/uL EOS x10 3 0.40 0.06 - 0.53 10*3/uL BASO x10 3 0.03 0.01 - 0.09 10*3/uL EKG: If EKG completed, see Procedure Note. Orders and Treatments: Orders Placed This Encounter Procedures CBC WITH DIFF URINALYSIS COMP. METABOLIC PANEL (94437) TROPONIN I Magnesium Lactic Acid Whole Blood Lactic Acid Whole Blood POCT GLUCOSE (AUTOMATED) Orders Placed This Encounter Medications NaCl 0.9% (NS) bolus infusion 1,000 mL sulfamethoxazole-trimethoprim (BACTRIM DS) 800-160 mg per tablet 1 tablet sulfamethoxazole-trimethoprim 800-160 mg per tablet First Provider Eval: ED Events Date/Time Event User Comments 01/16/25901 Medical Screening Begins LILO BLACKBURN DO -- 01/16/25 09 First Provider Evaluation LILO BLACKBURN DO -- ED COURSE Diagnosis/Impression as of 01/16/25 1151 Syncope, unspecified syncope type Acute cystitis without hematuria Procedures: EKG-12 Lead ROUTINE ONCE Date/Time: 01/16/2025 9:30 AM Performed by: Lilo Blackburn DO Authorized by: Lilo Blackburn DO ECG interpreted by ED Physician in the absence of a crab meat processor: yes Interpretation: Interpretation: normal Rate: ECG rate: 86 ECG rate assessment: normal Rhythm: Rhythm: sinus rhythm Ectopy: Ectopy: none QRS: QRS axis: Normal QRS intervals: Normal QRS conduction: normal ST segments: ST segments: Normal T waves: T waves: normal Q waves: Abnormal Q-waves: not present MDM: Medical Decision Making [facility] being a rapid response just prior to arrival. He was here with his mother to have a urological test performed. He reports he felt lightheaded and dizzy earlier and then the next thing he knows he was in the hospital bed. He appeared to have a syncopal episode while sitting in his walker. He does get around using a walker. No chest pain or pressure. No shortness of breath. No nausea, vomiting or diarrhea. He did not eat this morning which is not unusual for him. He reports he feels more like his normal self currently. 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 He admits to compliance with his medication. Vital signs are stable in the ER. The patient is obese. He has dry mucous membranes. His heart is regular rhythm and his lungs are clear bilaterally. His abdomen is soft and nontender. His speech is clear. No facial asymmetry. Handgrip right equals left. Muscle strength is 5/5 to upper extremities and lower extremities bilaterally. His EKG shows a normal sinus rhythm, no STEMI. Will give the patient IV fluids and check laboratory studies including a lactic acid level. Will monitor for any possible arrhythmias while on telemetry. Final disposition pending. 1151 -the patient is doing well here in the ER. His laboratory studies are unremarkable. His urinalysis shows an infection. He was given a dose of antibiotics here in the ER. He remained stable here in the ER and is okay for discharge home with PCP follow-up in 1 week. Problems Addressed: Acute cystitis without hematuria: acute illness or injury Syncope, unspecified syncope type: acute illness or injury Amount and/or Complexity of Data Reviewed Independent Historian: parent Labs: ordered. Decision-making details documented in ED Course. ECG/medicine tests: ordered and independent interpretation performed. Decision-making details documented in ED Course. Risk OTC drugs. Prescription drug management. Flowsheet Documentation: Scoring Tools: No data recorded Disposition/Condition: ED Disposition ED Disposition Discharge Condition Stable Comment -- Discharge Medications: Patient's Medications START taking these medications SULFAMETHOXAZOLE-TRIMETHOPRIM 800-160 MG PER TABLET Take 1 tablet by mouth in the morning and 1 tablet in the evening. Do all this for 5 days. CONTINUE taking these medications which have NOT CHANGED AMLODIPINE (NORVASC) 5 MG TABLET Take 1 tablet by mouth in the morning. BETAMETHASONE DIPROPIONATE 0.05 % OINTMENT Apply to area(s) daily for 7 days. ESCITALOPRAM OXALATE 20 MG TABLET Take 1 tablet by mouth in the morning. GABAPENTIN (NEURONTIN) 100 MG CAPSULE Take 1 capsule by mouth in the morning and 1 capsule at noon and 1 capsule in the evening. IBUPROFEN (MOTRIN ORAL) Take by mouth. LOSARTAN 50 MG TABLET Take 2 tablets by mouth in the morning. METHOCARBAMOL 500 MG TABLET Take 1 tablet by mouth 3 (three) times daily as needed for Other (muscle spasm in the lower back). PANTOPRAZOLE 40 MG EC TABLET TAKE 1 TABLET BY MOUTH IN THE MORNING AND 1 IN THE EVENING PEG-ELECTROLYTE SOLN 236-22.74-6.74 -5.86 GRAM SOLUTION Take as directed before colonoscopy POLYETHYLENE GLYCOL 3350 17 GRAM/DOSE POWDER Take 17 g by mouth 2 (two) times daily as needed for Constipation. PROMETHAZINE-DEXTROMETHORPHAN 6.25-15 MG/5 ML SYRUP Take 5 mL by mouth 4 (four) times daily as needed for Cough. PROPRANOLOL 20 MG TABLET Take 1 tablet by mouth in the morning and 1 tablet at noon and 1 tablet in the evening. TAMSULOSIN (FLOMAX) 0.4 MG 24 HR CAPSULE Take 1 capsule by mouth at bedtime. START taking Modified Medications as Prescribed No medications on file STOP taking these medications No medications on file Follow-up: Electronically signed by: Lilo Blackburn DO 01/16/25 1152 [facility] 2025-01-10 11:52:50 Did clinical reach out to pharmacy already ? T Mara Nayak [facility] 2025-01-08 15:14:48 Jaron Michaels ; pharmacy [facility] - [address] [place], [place] Pharmacy, Is requesting a call back for medication clarification on dosage on Orthovisc, Ask for Henrique, Thank you! Laura Mccall [facility] 2025-01-08 11:53:13 Addended by: LIZZIE MCCANN MA on: 01/08/2025 11:53 AM Modules accepted: Orders T [facility] 2025-01-08 11:52:34 Order 2 more Orthovisc injections. Had accidentally ordered only 1. Lizzie Mccann 01/08/2025 11:53 AM T [facility] 2025-01-04 16:12:51 Will order Orthovisc from [facility] pharmacy for left knee. Lizzie Mccann 01/04/2025 4:13 PM T [facility] 2025-01-04 15:54:25 Can you please order Orthovisc thorough the pharmacy benefit. The preferred medication send previously were only for medical benefits. Pharmacy benefits will be different. In this case under pharmacy benefit Eufflexxa is not covered. Mara Nayak [facility] 2025-01-03 11:38:39 Called to speak with pharmacy. The Euflexxa is not covered under pharmacy benefits. Will discuss with PSS to identify injection covered as we do not have Euflexxa in office. Amy Beltran RN [facility] 2025-01-03 09:44:30 Patient mom is requesting to speak to a nurse regarding injection. She was told she would get a call back in October but did not hear back from the clinic. Please advise Yanelis Bello [facility] 2024-12-25 11:15:42 Images from the original note were not included. Teresa Gray MA [facility] 2024-12-21 16:08:44 Images from the original note were not included. [facility] 2024-12-20 10:33:12 Message noted. Thank you Tawny Mcneil RN [facility] 2024-12-19 14:57:47 Images from the original note were not included. PA Pending. Will check on status periodically Teresa Gray MA [facility] 2024-12-19 13:53:21 Images from the original note were not included. T [facility] 2024-12-19 13:52:03 Images from the original note were not included. [facility] 2024-12-18 10:56:34 Images from the original note were not included. Notes: Last Refilled: methocarbamoL 500 mg tablet Sig: Take 1 tablet by mouth 3 (three) times daily as needed for Other (muscle spasm in the lower back). Disp: 180 tablet Refills: 1 Start: 12/17/2024 Class: eRX Non-formulary For: Musculoskeletal pain, Muscle strain Last ordered: 8 months ago (04/19/2024) by CHRISTIAN Pedroza Provider Review Required - Methocarbamol Ievbrc1412/17/2024 11:39 AM Protocol Details This refill cannot be delegated Manual Review: Methocarbamol for ortho staff to refill only Valid encounter within last 12 months To be filled at: [facility] [address] [place] [address] Recent Visits Date Type Provider Dept 10/19/24 Office Visit Bree Brice FNP [facility] 03/27/24 Office Visit Salima Moreno MD [facility] 03/09/24 Office Visit Bree Brice FNP [facility] 09/23/23 Office Visit Bree Brice FNP [facility] 08/19/23 Office Visit Bree Brice FNP [facility] Showing recent visits within past 540 days with a meds authorizing provider and meeting all other requirements Future Appointments No visits were found meeting these conditions. Showing future appointments within next 150 days with a meds authorizing provider and meeting all other requirements Tesha Caceres MA [facility] 2024-12-18 08:09:57 Received 12/17/2024 refill request for: Medication: Requested Prescriptions Pending Prescriptions Disp Refills PANTOPRAZOLE 40 mg EC tablet [Pharmacy Med Name: PANTOPRAZOLE 40MG TAB] 120 tablet 1 Sig: TAKE 1 TABLET BY MOUTH IN THE MORNING AND 1 IN THE EVENING Last filled: 12/15/2024 Follow up scheduled for : N/a Last office visit: 04/04/2024 Refilled approval sent to: Pharmacy: [facility] [address] [place] [address] [place] [address] Refilled per ID Guidelines Melisa Garay MA [facility] 2024-12-15 17:20:55 Received 12/15/2024 refill request for: Medication: Requested Prescriptions Pending Prescriptions Disp Refills pantoprazole 40 mg EC tablet 120 tablet 1 Sig: Take 1 tablet by mouth in the morning and 1 tablet in the evening. Last filled: 04/04/2024 Follow up scheduled for : N/a Last office visit: 04/04/2024 Refilled approval sent to: Pharmacy: [facility] [address] [place] [id number] Refilled per ID Guidelines Melisa Garay MA [facility] 2024-12-15 15:15:48 Images from the original note were not included. T [facility] 2024-12-11 15:31:40 Euflexxa ordered through specialty pharmacy T [facility] 2024-12-11 15:12:05 Images from the original note were not included. Please order preferred drug listed below. LVM to cancel appt until medication comes in. Yanelis Mas [facility] 2024-12-11 10:51:07 Pt is scheduled for 12/15. Closing encounter. Ariadne Lloyd [facility] 2024-12-08 15:59:46 Routing to PSS to scheduled appointment. Lizzie Mccann 12/08/2024 4:00 PM Lizzie Mccann [facility] 2024-12-08 11:11:01 Patients sibling is following up on knee injections she was told they were first denied then later approved. Can she schedule? [facility] 2024-11-09 14:00:55 Euflexxa ordered with [facility] pharmacy [employer] [facility] 2024-11-09 13:52:09 RCO notifed, Eufelxxa approved no auth required Please order medication Pt aware of med change & that we will call to make an appt when the medication is delivered. G Mas [facility] 2024-11-09 10:15:34 Attempt to contact the patient no answer, LMTRC. Orthovisc denied. G Bello [facility] 2024-11-09 09:31:52 Orthovisc was denied according to appt note but patient was left on the schedule . G Valderrama MA [facility] 2024-11-09 08:04:39 Eulflexxa please [facility] 2024-11-09 07:40:28 Images from the original note were not included. Please let us know which drug is preferred, So I can let O know which to get auth for. Thank you. [facility] 2024-11-05 11:18:17 Jaron Michaels is a 54 year old male Patient is requesting the following medication that is not listed AMOX/K CLAV 875-125 MG [facility] Kaylen Monterroso [facility] 2024-10-19 15:45:00 Patient stated he ate 2hrs ago will be back in the morning for labs [facility] Natalia Sumner [facility] 2024-09-29 08:55:34 Based on previous clinic visit note plan was for EGD and Colon as below. New orders placed if the patient is unable to undergo procedures, then he will need a new clinic visit prior to new case requests. 1. Esophageal thickening 2. Gastroesophageal reflux disease The PET scan reported changes likely from esophagitis, the patient does have a small sliding hiatal hernia, which can exacerbate sxs, but will plan for EGD to rule out dysplasia. Pt was advised to start pantoprazole 40mg BID for 8 weeks, then plan to decrease to daily. Plan: - CASE REQUEST: COLONOSCOPY, ESOPHAGOGASTRODUODENOSCOPY - pantoprazole 40 mg EC tablet; Take 1 tablet by mouth in the morning and 1 tablet in the evening. Dispense: 120 tablet; Refill: 1 3. Tubular adenoma of colon Patient with hx of multiple polyps in 2016, 2017. Most recent colonoscopy in 2019 with no polyps seen, but plan for repeat colonoscopy in 5 years. Patient consented for both upper and colon. Plan: - CASE REQUEST: COLONOSCOPY, ESOPHAGOGASTRODUODENOSCOPY - peg-electrolyte soln [id number] -5.86 gram solution; Take as directed before colonoscopy Dispense: 4000 mL; Refill: 1 Keny Steinberg M.D. Department of Gastroenterology and Hepatology, PGY-4 [facility] 2024-09-26 12:33:23 Jaron Michaels is a 54 year old male Pt sister is calling needing a new order for the colonoscopy and Endoscopy so pt can reschedule his procedure. The last procedure was canceled do to pt being sick. Orgnial order was discontinued. Pt was seen in 03/2024 for the pre op appt. Please advise pt ELISE Juarez that the new orders are in for her to schedule. Pt sister is coming down last week of September and is needed to get the procedure done then if possible since she lives in [place]. Please advise [facility] Damaris Garnett [facility] 2024-09-25 14:26:04 Patient attempted to schedule appts, but was told a new one is required. Please review, complete, and sign if appropriate. [facility] 2024-09-25 12:40:04 He already has a referral to GI who does both if clinically indicated. [facility] 2024-09-25 11:36:48 Sister of Jaron Michaels is a 54 year old male would like a call back to discuss having referrals placed for the patient to have Colonoscopy & Endoscopy Please advise [phone] G Nash [facility] 2024-08-30 09:33:25 Images from the original note were not included. Notes: Last Refilled: dicyclomine 20 mg tablet Possible duplicate: Hover to review recent actions on this medication Sig: Take 1 tablet by mouth 4 (four) times daily as needed for Abdominal pain. Disp: 90 tablet Refills: 0 Start: 08/30/2024 Class: eRX Non-formulary For: Chronic constipation, Chronic abdominal pain Last ordered: 1 month ago (07/05/2024) by CHRISTIAN Pedroza [employer] Zbdtvi9208/30/2024 07:48 AM Protocol Details Valid encounter within last 12 months To be filled at: [facility] [address] [place] [address] Recent Visits Date Type Provider Dept 08/29/24 Office Visit Bree Brice FNP [facility] 03/27/24 Office Visit Salima Moreno MD [facility] 03/09/24 Office Visit Bree Brice FNP [facility] 09/23/23 Office Visit Bree Brice FNP [facility] 08/19/23 Office Visit Bree Brice FNP [facility] 06/17/23 Office Visit Bree Brice FNP [facility] Showing recent visits within past 540 days with a meds authorizing provider and meeting all other requirements Future Appointments No visits were found meeting these conditions. Showing future appointments within next 150 days with a meds authorizing provider and meeting all other requirements G Lewis MA [facility] 2024 16:30:00 DC instructions reviewed with patient and his mother. Patient is hard of hearing and instructions were repeated for hi as needed. No prescriptions were written and no home meds were changed. The patient will follow up with his PCP as instructed for further evaluation . He will return to the ER if his symptoms recur. He was Dc'd via W/C-alert, oriented x4. His mother was present and will drive him home. G Fernando RN [facility] 2024 13:42:08 Patient arrived by [facility] from an urgent care, was called initially for neurogenic seizures. Patient verbalized that he has had chest pain intermittently for several days. Patient states that the pain is on the left side and comes and goes. G Saenz RN [facility] 2024-08-16 09:31:00 Last Refilled: Disp Refills Start End PRO dicyclomine 20 mg tablet 90 tablet 0 07/05/2024 -- -- Sig: Take 1 tablet by mouth 4 (four) times daily as needed for Abdominal pain. Sent to pharmacy as: dicyclomine 20 mg tablet (BENTYL) Class: eRX Route: Oral Order: [id number] Date/Time Signed: 07/05/2024 11:14 E-Prescribing Status: Receipt confirmed by pharmacy (07/05/2024 11:14 AM CDT) Notes: Please review, Patient has appointment 08/29/24 Recent Visits Date Type Provider Dept 03/27/24 Office Visit Salima Moreno MD [facility] 03/09/24 Office Visit Bree Brice FNP [facility] 09/23/23 Office Visit Bree Brice FNP [facility] 08/19/23 Office Visit Bree Brice FNP [facility] 06/17/23 Office Visit Bree Brice FNP [facility] Showing recent visits within past 540 days with a meds authorizing provider and meeting all other requirements Future Appointments Date Type Provider Dept 08/29/24 Appointment Bree Brice FNP [facility] Showing future appointments within next 150 days with a meds authorizing provider and meeting all other requirements G Valdivia RN [facility] 2024-08-02 10:26:16 Images from the original note were not included. Notes: 07/05/24 Last Refilled: [address] Recent Visits Date Type Provider Dept 03/27/24 Office Visit Salima Moreno MD [facility] 03/09/24 Office Visit Bree Brice FNP [facility] 09/23/23 Office Visit Bree Brice FNP [facility] 08/19/23 Office Visit Bree Brice FNP [facility] 06/17/23 Office Visit Bree Brice FNP [facility] Showing recent visits within past 540 days with a meds authorizing provider and meeting all other requirements Future Appointments Date Type Provider Dept 08/29/24 Appointment Bree Brice FNP [facility] Showing future appointments within next 150 days with a meds authorizing provider and meeting all other requirements dicyclomine 20 mg tablet Possible duplicate: Hover to review recent actions on this medicationSig: Take 1 tablet by mouth 4 (four) times daily as needed for Abdominal pain.Disp: 90 tablet Refills: 0Start: 08/02/2024lass: eRXNon-formularyFor: Chronic constipation, Chronic abdominal painLast ordered: 4 weeks ago (07/05/2024) by CHRISTIAN Pedroza [employer] Hnjpuj1908/02/2024 08:51 AM Protocol Details Valid encounter within last 12 months To be filled at: [address] G Mccann MA [facility] 2024-07-28 19:09:32 Patient is supposed to be under care with a GI no more refills until he sees GI. [facility] 2024-07-28 10:35:58 Images from the original note were not included. Notes: 07/05/24 Last Refilled: [facility] [address] [place] [address] Recent Visits Date Type Provider Dept 03/27/24 Office Visit Salima Moreno MD [facility] 03/09/24 Office Visit Bree Brice FNP [facility] 09/23/23 Office Visit Bree Brice FNP [facility] 08/19/23 Office Visit Bree Brice FNP [facility] 06/17/23 Office Visit Bree Brice FNP [facility] Showing recent visits within past 540 days with a meds authorizing provider and meeting all other requirements Future Appointments Date Type Provider Dept 08/29/24 Appointment Bree Brice FNP [facility] Showing future appointments within next 150 days with a meds authorizing provider and meeting all other requirements dicyclomine 20 mg tablet Sig: Take 1 tablet by mouth 4 (four) times daily as needed for Abdominal pain. Disp: 90 tablet Refills: 0 Start: 07/28/2024 Class: eRX Non-formulary For: Chronic constipation, Chronic abdominal pain Last ordered: 3 weeks ago (07/05/2024) by CHRISTIAN Pedroza [employer] [id number]/28/2024 10:28 AM Protocol Details Valid encounter within last 12 months To be filled at: [address] G Mccann MA [facility] 2024-07-18 09:30:00 Addended by: FADI POST MD on: 08/02/2024 08:20 AM Modules accepted: Orders [facility] 2024-07-17 11:09:21 PT noted to have generalized tonic clonic type seizure lasting approx 1 min. Pt responded to painful stimuli and A&OX4 immediatly after. No post ictal state noted. Anethesia at bedside and aware. Procedure canceled. Pt and family endorse hx of seizure. Declines ER at this time. [facility] Marisel Mathis RN [facility] 2024-07-05 11:13:05 Last Refilled: Disp Refills Start End PRO dicyclomine 20 mg tablet 90 tablet 0 05/29/2024 -- -- Sig: Take 1 tablet by mouth 4 (four) times daily as needed for Abdominal pain. Sent to pharmacy as: dicyclomine 20 mg tablet (BENTYL) Class: eRX Route: Oral Order: [id number] Date/Time Signed: 05/29/2024 06:59 E-Prescribing Status: Receipt confirmed by pharmacy (05/29/2024 7:00 AM CDT) Notes: Recent Visits Date Type Provider Dept 03/27/24 Office Visit Salima Moreno MD [facility] 03/09/24 Office Visit Bree Brice FNP [facility] 09/23/23 Office Visit Bree Brice FNP [facility] 08/19/23 Office Visit Bree Brice FNP [facility] 06/17/23 Office Visit Bree Brice FNP [facility] Showing recent visits within past 540 days with a meds authorizing provider and meeting all other requirements Future Appointments Date Type Provider Dept 08/29/24 Appointment Bree Brice FNP [facility] Showing future appointments within next 150 days with a meds authorizing provider and meeting all other requirements Classics Professor Visit on 03/09/2024 Component Date Value TSH 03/09/2024 0.92 CHOL 03/09/2024 141 HDL 03/09/2024 35 (L) HDLC RATIO 03/09/2024 4.0 TRIG 03/09/2024 126 LDL CHOL 03/09/2024 81 VLDL 03/09/2024 25 HGB A1C 03/09/2024 5.7 VIT D 25OH 03/09/2024 37 Office Visit on 03/09/2024 Component Date Value WBC 03/09/2024 6.29 RBC 03/09/2024 4.88 HGB 03/09/2024 14.7 HCT 03/09/2024 46.0 MCV 03/09/2024 94.3 MCH 03/09/2024 30.1 MCHC 03/09/2024 32.0 RDW-SD 03/09/2024 43.1 RDW-CV 03/09/2024 12.4 PLT 03/09/2024 228 MPV 03/09/2024 12.0 NRBC/100 WBC 03/09/2024 0.0 NRBC x10 3 03/09/2024 <0.01 GRAN MAT (NEUT) % 03/09/2024 61.3 IMM GRAN % 03/09/2024 0.20 LYMPH % 03/09/2024 27.2 MONO % 03/09/2024 7.0 EOS % 03/09/2024 4.0 BASO % 03/09/2024 0.3 GRAN MAT x10 3 (ANC) 03/09/2024 3.86 IMM GRAN x10 3 03/09/2024 <0.03 LYMPH x10 3 03/09/2024 1.71 MONO x10 3 03/09/2024 0.44 EOS x10 3 03/09/2024 0.25 BASO x10 3 03/09/2024 <0.03 NA 03/09/2024 137 K 03/09/2024 4.1 CL 03/09/2024 97 (L) CO2 TOTAL 03/09/2024 36 (H) AGAP 03/09/2024 4 BUN 03/09/2024 17 GLUCOSE 03/09/2024 110 CREATININE 03/09/2024 0.91 TOTAL BILI 03/09/2024 0.8 CALCIUM 03/09/2024 9.5 T PROTEIN 03/09/2024 7.0 ALBUMIN 03/09/2024 3.8 ALK PHOS 03/09/2024 80 ALTv 03/09/2024 13 AST(SGOT) 03/09/2024 22 eGFR 03/09/2024 100.2 Classics Professor Visit on 02/16/2024 Component Date Value KAPPA QNT FREE LIGHT GERRI* 02/16/2024 25.50 (H) LAMBDA QNT FREE LIGHT CH* 02/16/2024 57.70 (H) KAPPA/LAMBDA FREE LIGHT * 02/16/2024 0.44 IgA 02/16/2024 141 IgG 02/16/2024 1,180 IgM 02/16/2024 160 WBC 02/16/2024 9.32 RBC 02/16/2024 5.17 HGB 02/16/2024 15.6 HCT 02/16/2024 48.4 MCV 02/16/2024 93.6 MCH 02/16/2024 30.2 MCHC 02/16/2024 32.2 RDW-SD 02/16/2024 44.0 RDW-CV 02/16/2024 12.8 PLT 02/16/2024 257 MPV 02/16/2024 12.1 NRBC/100 WBC 02/16/2024 0.0 NRBC x10 3 02/16/2024 <0.01 GRAN MAT (NEUT) % 02/16/2024 64.6 IMM GRAN % 02/16/2024 0.20 LYMPH % 02/16/2024 24.5 MONO % 02/16/2024 7.8 EOS % 02/16/2024 2.5 BASO % 02/16/2024 0.4 GRAN MAT x10 3 (ANC) 02/16/2024 6.02 IMM GRAN x10 3 02/16/2024 <0.03 LYMPH x10 3 02/16/2024 2.28 MONO x10 3 02/16/2024 0.73 EOS x10 3 02/16/2024 0.23 BASO x10 3 02/16/2024 0.04 NA 02/16/2024 141 K 02/16/2024 3.6 CL 02/16/2024 101 CO2 TOTAL 02/16/2024 31 AGAP 02/16/2024 9 BUN 02/16/2024 21 GLUCOSE 02/16/2024 117 (H) CREATININE 02/16/2024 1.08 TOTAL BILI 02/16/2024 0.6 CALCIUM 02/16/2024 10.4 T PROTEIN 02/16/2024 7.4 ALBUMIN 02/16/2024 4.2 ALK PHOS 02/16/2024 82 ALTv 02/16/2024 16 AST(SGOT) 02/16/2024 20 eGFR 02/16/2024 81.5 PSA 02/16/2024 1.26 T PROTEIN 02/16/2024 7.4 ALBUMIN 02/16/2024 3.7 ALPHA 1 02/16/2024 0.3 ALPHA 2 02/16/2024 0.9 BETA 02/16/2024 1.2 GAMMA 02/16/2024 1.3 Electrophoresis Interpre* 02/16/2024 Value:Serum Protein electrophoresis interpretation: M spike present in the gamma region of serum (0.8 g/dL). No urine submitted for testing. Repeat in 6-8 weeks if clinically indicated. Immunofixation electrophoresis recommended (Serum & Urine) if clinically indicated. Office Visit on 02/16/2024 Component Date Value POCT U SP GRAV 02/16/2024 1.020 POCT PH U 02/16/2024 6.0 POCT U LEUK EST 02/16/2024 Trace POCT U NIT 02/16/2024 Negative POCT U PROT 02/16/2024 30 POCT U GLU 02/16/2024 Negative POCT U KETONE 02/16/2024 Negative POCT U UROBILI 02/16/2024 1.0 POCT U BILI 02/16/2024 small POCT U BLD 02/16/2024 Negative POCT U COLOR 02/16/2024 yellow POCT U APPEAR 02/16/2024 clear PVR (URINE VOLUME) 02/16/2024 24 Office Visit on 02/02/2024 Component Date Value POCT U SP GRAV 02/02/2024 1.025 POCT PH U 02/02/2024 6.5 POCT U LEUK EST 02/02/2024 Negative POCT U NIT 02/02/2024 Negative POCT U PROT 02/02/2024 30 (A) POCT U GLU 02/02/2024 Negative POCT U KETONE 02/02/2024 Negative POCT U UROBILI 02/02/2024 0.2 POCT U BILI 02/02/2024 small (A) POCT U BLD 02/02/2024 Negative POCT U COLOR 02/02/2024 Yellow POCT U APPEAR 02/02/2024 Clear Classics Professor Visit on 01/20/2024 Component Date Value URINE CULTURE 01/20/2024 10,000 - 100,000 CFU/mL mixed aerobic organisms - suggests endogenous microbial contamination Office Visit on 01/11/2024 Component Date Value PVR (URINE VOLUME) 01/11/2024 41 Hospital Outpatient Visit on 12/01/2023 Component Date Value POCT GLU 12/01/2023 78 Hospital Outpatient Visit on 11/30/2023 Component Date Value POCT Creatinine 11/30/2023 1.0 Classics Professor Visit on 10/11/2023 Component Date Value URINE CULTURE 10/11/2023 No aerobic growth (< 1000 CFU/mL) There may be more visits with results that are not included. STINE Valdivia RN [facility] 2024-07-04 12:34:00 Patient contacted for pre op phone call. Patient given procedural prep instructions (EGD/ Golytely), NPO status/timing for procedure, medication instructions,denies anticoagulant therapy, diuretics, diabetic or weight loss medications. Patient verbalized understanding of instructions. Discussed with patient they will need a responsible adult, 18 years old or older, to provide transportation on the day of procedure. Patient also informed that they will be contacted the day before their procedure with arrival time. Pre op call complete. Prep and medication instructions sent via [employer] & email: [email or web address] Yanelis Hauser RN [facility] 2024-07-04 08:57:44 Appointment is in, patient will have to be seen and consented for any procedures. Will follow up on next appointment Love Caba RN [facility] 2024-06-30 10:47:12 Name/ MRN / Age / Gender: Jaron Michaels, [id number] 53 year old male BMI: Estimated body mass index is 47.78 kg/m? as calculated from the following: Height as of 04/04/24: 1.93 m (6' 4"). Weight as of 04/04/24: 178 kg (392 lb 8 oz). Allergies: Patient has no known allergies. Last Vitals: BP Readings from Last 1 Encounters: 04/04/24 (!) 163/106 Pulse Readings from Last 1 Encounters: 04/04/24 83 SpO2 Readings from Last 1 Encounters: 04/04/24 98% Date of Surgery: 07/17/2024 Surgeon: Chapo Stoll MD Procedure: COLONOSCOPY (Rectum) ESOPHAGOGASTRODUODENOSCOPY (Mouth) OR Location: ENDOSCOPY ([facility]) OR LOCATION Anesthesia Preop Screen (no physical exam) Anesthesia Preop: Chart Review [facility] questionnaire answers not incorporated Anesthesia History Anesthesia History Negative (+) Hx of difficult IV access Previous Anesthetics/Airways Additional Comments: 01/29/2016 TIVA Mallampati score:II TM distance:> 5 cm Neck ROM: full Mouth opening:normal Cardiovascular Comments: 03/25/23 Post-stress Impression: Adequate hemodynamic response, adequate chronotropic response and non diagnostic. ? Post-stress: The post-stress echo shows appropriate increased thickness to all myocardial segments, increased ejection fraction 70-75 and no wall motion abnormalities noted. THR noted 142 bpm LAX images obtained 130. SAX images obtained 128 bpm AP4 images obtained 133 bpm AP2 images obtained 133 bpm ? Left Ventricle: Left ventricle is normal in size and function. Normal wall thickness. No regional wall motion abnormalities. Normal systolic function with a visually estimated EF of 55 - 60%. There is impaired relaxation. ? Aorta: Mildly to moderately enlarged ascending aorta 4.2cm. (+) Hypertension (+) Hx of echocardiogram within past 5 years (+) Hx of cardiac stress test Pulmonary Comments: Current smoker (+) Sleep apnea (does not use CPAP) (+) Tobacco use (current smoker 0.5 ppd) Neuro/Musculoskeletal Comments: Has not had any grand mal seizures in the last few years. 12/15/2016 MRI Brain cc: seizures No acute intracranial abnormality. 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 Poor prep on 02/2017, so repeat colonoscopy scheduled for 06/10/2017 GASTROENTEROLOGY AND HEPATOLOGY CLINIC NOTE 04/05/2024 -Esophageal thickening - Gastroesophageal reflux disease The PET scan reported changes likely from esophagitis, the patient does have a small sliding hiatal hernia, which can exacerbate sxs, but will plan for EGD to rule out dysplasia. Pt was advised to start pantoprazole 40mg BID for 8 weeks, then plan to decrease to daily. -Tubular adenoma of colon Patient with hx of multiple polyps in 2016, 2016. Most recent colonoscopy in 2019 with no polyps seen, but plan for repeat colonoscopy in 5 years. (+) GERD ( omeprazole) Hematology Negative Hematology ROS Comments: HGB (g/dL) Date Value 03/09/2024 14.7 03/09/24 1511 PLT 228 Renal Negative Renal ROS Comments: K (mmol/L) Date Value 03/09/2024 4.1 CREATININE (mg/dL) Date Value 03/09/2024 0.91 Skin Negative Skin ROS Endo/Other Negative Endo/Other ROS Other Comments: Oncology CRISTAL 02/04/2024 With extensive workup there is no definitive concern or evidence of any malignancy or metastatic disease. Will see him in [address] chest to monitor and follow-up on sclerotic rib findings which most likely was a healing fracture but still requires monitoring and lung nodule. All other incidental findings as mentioned above will be monitored and managed as per other specialty the patient has been referred to. (+) Tobacco use (current smoker 0.5 ppd) COMPENSATION ADMINISTRATOR COMPENSATION ADMINISTRATOR N/A Pediatric Pediatric N/A N/A Preoperative Medication Instructions Continue taking all prescribed medications except: KRISTEN inhibitors, ARBs, diuretics, all oral diabetes medications Anticoagulant Therapy: Defer to surgeons Insulin: Take 1/2 dose the night prior to surgery. Hold on DOS. Phentermine: Alert [facility] anesthesiologist SGLT2 Inhibitors: "gliflozins" to be held for 3 days prior to elective surgeries GLP1 Agonosit: stop 7 days prior to surgery MAC Cases: Continue taking KRISTEN inhibitors and ARBs ASA Classification ASA: 3 ASA Comments: 07/17/2024: Procedure cancelled. Seizure?(seizure activity ) witnessed in pre-op holding. Pt has a long history of epilepsy dating back to his 20's.(per family) Followed by Neuro. Not currently taking anti-seizure meds. Labs: Chemistry 03/09/2024 CBC 03/09/2024 137 97 (L) 17 110 6.29 14.7 228 4.1 36 (H) 0.91 46.0 eGFR: 100.2 Date: 03/09/2024 ANC: 3.86 Date: 03/09/2024 LFTs 03/09/2024 Coags AST: 22 AP: 80 Prot: 7.0 Ca: 9.5 PT: - Date: - ALT: 13 T Nithin: 0.8 Alb: 3.8 PTT: - Date: - PO4: - Date: - INR: - Date: - Cardiac Endocrine & other pBNP: - Date: - A1C: 5.7 Date: 03/09/2024 Trop I: - Date: - POCT A1C: - Date: - CK: - Date: - TSH: 0.92 Date: 03/09/2024 CKMB: - Date: - FT4: - Date: - LDL: 81 Date: 03/09/2024 Lact: 2.86 (H) Date: 09/17/2023 Procal: - Date: - Respiratory -|-|-|-|- D-dimer: - ABG Date: - Date: - Miscellaneous Type and Screen: - Antibody: - Date: - POCT : - Date: - Current Medications: No outpatient medications have been marked as taking for the 07/17/24 encounter (Hospital Encounter). Previous Surgeries: Past Surgical History: Procedure Laterality Date COLONOSCOPY N/A 12/30/2015 Surgeon: Leon Xiong DO; Location: [facility] Location COLONOSCOPY N/A 03/08/2017 Surgeon: Leon Xiong DO; Location: [facility] Location COLONOSCOPY N/A 06/11/2017 Surgeon: Alfonso Suarez MD; Location: [facility] Location COLONOSCOPY N/A 11/21/2018 Surgeon: Leon Xiong DO; Location: [facility] Location LIPOMA EXCISION Right leg Physical Exam Anesthesia Plan ASA Status: 3 [facility] AN-ANESTHESIOLOGY ANESTHESIOLOGIST [facility] 2024-06-30 09:34:54 Please review and advise if okay to place referral. Recent Visits Date Type Provider Dept 03/27/24 Office Visit Salima Moreno MD [facility] 03/09/24 Office Visit Bree Brice [employer]A [employer]AKING [employer]IDE [facility] 09/23/23 Office Visit Bree Brice SEA [employer]AYAKING GUIDE [facility] 08/19/23 Office Visit Bree Brice SEA [employer]AYAKING GUIDE [facility] 06/17/23 Office Visit Bree Brice, SEA [employer]AKING GUIDE [facility] Showing recent visits within past 540 days with a meds authorizing provider and meeting all other requirements Future Appointments Date Type Provider Dept 08/29/24 Appointment Bree Brice [employer]AYAKING GUIDE [facility] Showing future appointments within next 150 days with a meds authorizing provider and meeting all other requirements [facility] 2024-06-30 09:23:39 Jaron Michaels is a 53 year old male and mom is calling needing a referral. Patient is requesting a referral to: Dept: Orthopedics - [place] Reason for referral: pain in both knees Duration of problem: NA Internal / External referral: Internal Name of provider / location patient requesting: Fadi Post MD [address] [place] [address] Phone number: [phone] Fax number: [phone] Appt already scheduled?: No If yes, date of appt.: NA Jennifer Ambrocio [facility] 2024-06-30 09:10:35 Jaron Michaels is a 53 year old male PT insurance calling for a PA for colonoscopy and endoscopy please advise. [facility] [phone] phone [phone] Fax Phi Wright [facility] 2024-05-30 16:21:09 Images from the original note were not included. Notes: 05/29/24 Last Refilled: [facility] [address] [place] [address] Recent Visits Date Type Provider Dept 03/27/24 Office Visit Salima Moreno MD [facility] 03/09/24 Office Visit Bree Brice FNP [facility] 10/25/23 Office Visit Jefferson Christiansen MD [facility] 09/23/23 Office Visit Bree Brice FNP [facility] 08/19/23 Office Visit Bree Brice FNP [facility] 07/13/23 Office Visit Jefferson Christiansen MD [facility] 06/17/23 Office Visit Bree Brice FNP [facility] Showing recent visits within past 540 days with a meds authorizing provider and meeting all other requirements Future Appointments Date Type Provider Dept 08/29/24 Appointment Bree Brice FNP [facility] Showing future appointments within next 150 days with a meds authorizing provider and meeting all other requirements dicyclomine 20 mg tablet Possible duplicate: Hover to review recent actions on this medication Sig: Take 1 tablet by mouth 4 (four) times daily as needed for Abdominal pain. Disp: 90 tablet Refills: 0 Start: 05/30/2024 Class: eRX Non-formulary For: Chronic constipation, Chronic abdominal pain Last ordered: Yesterday (05/29/2024) by CHRISTIAN Pedroza To be filled at: [place] [id number] - [address] Kalina Mccann MA [facility] 2024-05-29 06:58:58 Last Refilled: Disp Refills Start End PRO dicyclomine 20 mg tablet 90 tablet 0 04/20/2024 -- -- Sig: Take 1 tablet by mouth 4 (four) times daily as needed for Abdominal pain. Sent to pharmacy as: dicyclomine 20 mg tablet (BENTYL) Class: eRX Route: Oral Order: [id number] Date/Time Signed: 04/20/2024 07:07 E-Prescribing Status: Receipt confirmed by pharmacy (04/20/2024 7:08 AM CDT) Notes: Recent Visits Date Type Provider Dept 03/27/24 Office Visit Salima Moreno MD [facility] 03/09/24 Office Visit Bree Brice FNP [facility] 09/23/23 Office Visit Bree Brice FNP [facility] 08/19/23 Office Visit Bree Brice FNP [facility] 06/17/23 Office Visit Bree Brice FNP [facility] Showing recent visits within past 540 days with a meds authorizing provider and meeting all other requirements Future Appointments Date Type Provider Dept 08/29/24 Appointment Bree Brice FNP [facility] Showing future appointments within next 150 days with a meds authorizing provider and meeting all other requirements Ela Valdivia RN [facility] 2024-04-20 07:06:55 Last Refilled: Disp Refills Start End PRO dicyclomine 20 mg tablet 90 tablet 0 03/09/2024 -- No Sig: Take 1 tablet by mouth 4 (four) times daily as needed for Abdominal pain. Sent to pharmacy as: dicyclomine 20 mg tablet (BENTYL) Class: eRX Route: Oral Order: [id number] Date/Time Signed: 03/09/2024 14:55 E-Prescribing Status: Receipt confirmed by pharmacy (03/09/2024 2:55 PM CDT) Notes: Recent Visits Date Type Provider Dept 03/27/24 Office Visit Salima Moreno MD [facility] 03/09/24 Office Visit Bree Brice FNP [facility] 09/23/23 Office Visit Bree Brice FNP [facility] 08/19/23 Office Visit Bree Brice [employer]AK[employer]IDE [facility] 06/17/23 Office Visit Bree Brice SEA [employer]AYAKING GUIDE [facility] Showing recent visits within past 540 days with a meds authorizing provider and meeting all other requirements Future Appointments Date Type Provider Dept 09/08/24 Appointment Bree Brice FNP [facility] Showing future appointments within next 150 days with a meds authorizing provider and meeting all other requirements Ela Valdivia RN [facility] 2024-04-18 16:28:37 Images from the original note were not included. Notes: 08/19/23 Last Refilled: [facility] [address] [place] [address] Recent Visits Date Type Provider Dept 03/27/24 Office Visit Salima Moreno MD [facility] 03/09/24 Office Visit Bree Brice FNP [facility] 09/23/23 Office Visit Bree Brice FNP [facility] 08/19/23 Office Visit Bree Brice FNP [facility] 06/17/23 Office Visit Bree Brice FNP [facility] Showing recent visits within past 540 days with a meds authorizing provider and meeting all other requirements Future Appointments Date Type Provider Dept 09/08/24 Appointment Bree Brice FNP [facility] Showing future appointments within next 150 days with a meds authorizing provider and meeting all other requirements methocarbamoL 500 mg tablet Sig: Take 1 tablet by mouth 3 (three) times daily as needed for Other (muscle spasm in the lower back). Disp: 180 tablet Refills: 1 Start: 04/18/2024 Class: eRX Non-formulary For: Musculoskeletal pain, Muscle strain Last ordered: 8 months ago (08/19/2023) by CHRISTIAN Pedroza Provider Review Required - Methocarbamol Svacgc3504/18/2024 04:16 PM Protocol Details This refill cannot be delegated Manual Review: Methocarbamol for ortho staff to refill only Valid encounter within last 12 months To be filled at: [facility] [address] [place] [address] Kalina Mccann MA [facility] 2024-04-06 09:42:32 EC/sister-Ann was notified of all and verbalized understanding. Esthela Landon LVN [facility] 2024-04-05 18:36:44 Addended by: LIZZ DOLL on: 04/05/2024 06:36 PM Modules accepted: Orders [facility] 2024-04-05 18:36:[address] Mark Drummond [facility] 2024-04-05 15:59:57 04/04/24 The member or health care provider asked for Propranolol Cap 60mg Er on 04/04/2024. We denied the request. Preferred: Atenolol Bisoprolol Metoprolol XL Sotalol Propranolol IR Please review and advise. Esthela Landon LVN [facility] 2024-04-04 10:43:40 PA for Propranolol initiated on 04/04/2024: Rothman: [id number] PA Rx #: [id number] Will provide updates as recd Esthela Landon LVN [facility] 2024-04-01 15:31:54 Images from the original note were not included. Received PA Rothman code below and have placed in provider's box for review. Windy Canales [facility] 2024-03-09 15:15:00 Images from the original note were not included. Venipuncture collection performed by clean technique on the left anticubitus. Total of 1 attempts were made. Slight pressure and a bandage/dressing were applied to the site(s). The patient experienced no complications. The following specimens were processed according to instructions and sent to [facility] laboratories per lab order on 03/09/2024 : LT BLUE SST 2 RED LAV 2 PPT DK GREEN (LiHep) DK GREEN (SodH) LEVI DK BLUE (K2) DK BLUE (S) ACD Blood Culture NIPT/NTD [facility] 2024-02-16 15:30:00 Images from the original note were not included. Venipuncture collection performed by clean technique on the left anticubitus. Total of 1 attempts were made. Slight pressure and a bandage/dressing were applied to the site(s). The patient experienced no complications. The following specimens were processed according to instructions and sent to [facility] laboratories per lab order on 02/16/2024 : LT BLUE SST 4 RED LAV 1 PPT DK GREEN (LiHep) DK GREEN (SodH) LEVI DK BLUE (K2) DK BLUE (S) ACD Blood Culture NIPT/NTD Bc student marko performed venipuncture Pt will return at later date for urine. [facility] 2024-02-11 10:47:13 Sent 01/24 and 02/01 files to [facility] and requested auth for the following: DOS: 01/25/24 Specialty: Oncology Order: CT THORAX WO CONTRAST - scheduled 04/28/24 3mo. Oncology follow up: 04/25/24 DOS: 02/02/24 Specialty: Urology Order: MR DYNAMIC PROSTATE W WO CONTRAST- scheduled 03/22/24 2week Urology follow up: 02/16/24 Adriana Stern [facility] 2024-01-20 10:00:00 Images from the original note were not included. Patient has been identified by and name and was provided with cup, antiseptic towelette, and clean catch instructions. 2 urine specimen(s) sent. Unpreserved 1 Urine Culture 1 Aptima tube Other urine Flor Reis [facility] 2024-01-18 08:34:39 Worked 01/10 file. No new orders placed to be requested by [facility] at this time. Linn Singleton 01/18/2024 8:34 AM Linn Singleton [facility] 2024-01-06 10:01:58 Patient called [facility] today asking why the medication did not get filled and I advised him to see Psychiatry per providers note. Patient verbalized understandinfg. Jerry Mcintosh MA [facility] 2024-01-04 09:33:45 Recent Visits Date Type Provider Dept 09/23/23 Office Visit Bree Brice FNP [facility] 08/19/23 Office Visit Bree Brice FNP [facility] 06/17/23 Office Visit Bree Brice FNP [facility] Showing recent visits within past 540 days with a meds authorizing provider and meeting all other requirements Future Appointments Date Type Provider Dept 03/23/24 Appointment Bree Brice FNP [facility] Showing future appointments within next 150 days with a meds authorizing provider and meeting all other requirements Last refill was Disp Refills Start End PRO methocarbamoL 500 mg tablet 180 tablet 1 08/19/2023 -- No Sig: Take 1 tablet by mouth 3 (three) times daily as needed for Other (muscle spasm in the lower back). Sent to pharmacy as: methocarbamoL 500 mg tablet (ROBAXIN) Cleo Ordaz MA [facility] 2024-01-03 12:27:00 Last Refilled: propranoloL 60 mg 24 hr [id number] urqjbgr72/6/2024----Sig: Take 1 capsule by mouth in the morning.Sent to pharmacy as: propranoloL ER 60 mg capsule,24 hr,extended release (INDERAL [place])Class: eRXRoute: OralOrder: [id number]/Time Signed: 11/17/2023 20:54E-Prescribing Status: Receipt confirmed by pharmacy (11/17/2023 8:54 PM PERSONAL PROTECTION SPECIALIST) Recent Visits Date Type Provider Dept 09/23/23 Office Visit Bree Brice FNP [facility] 08/19/23 Office Visit Bree Brice FNP [facility] 06/17/23 Office Visit Bree Brice FNP [facility] Showing recent visits within past 540 days with a meds authorizing provider and meeting all other requirements Future Appointments Date Type Provider Dept 03/23/24 Appointment Bree Brice FNP [facility] Showing future appointments within next 150 days with a meds authorizing provider and meeting all other requirements' Beryl Wilson [facility] 2023-12-29 08:48:51 Images from the original note were not included. Renewal requests should not be coming to Dr. Christiansen. Medication should be managed by psychiatry or PCP. Per OV 07/13/23 : Other depression Comment: Chronic, stable. Patient has been taking Lexapro 10 mg QD, but dose is likely not high enough. Recommend that patient increases dose to 20 mg QD. Patient has been attempting to transfer psychiatric care after previous psychiatrist retired; will refer patient to [facility] psychiatry for further monitoring of medication regimen. Requested Prescriptions Refused Prescriptions Disp Refills ESCITALOPRAM OXALATE 20 mg tablet [Pharmacy Med Name: Escitalopram Oxalate 20 MG Oral Tablet] 30 tablet 0 Sig: TAKE 1 TABLET BY MOUTH IN THE MORNING Refused By: CAROL ESQUIVEL Reason for Refusal: Refill not appropriate [facility] 2023-12-28 08:50:05 [facility] [id number] - Worked 11/29 & 11/30 files. No new orders placed to be requested by [facility] at this time. Linn Singleton 12/28/2023 8:50 AM Linn Singleton [facility] 2023-12-08 16:56:05 Pt returned call for results and would like for someone to return his phone call. Please Assist Brenda Ruiz [facility] 2023-12-08 08:24:00 Addended by: AMY WORTHINGTON on: 12/08/2023 09:42 AM Modules accepted: Orders [facility] 2023-12-01 09:57:46 Received notification of current patient eligibility from [facility]. Linn Singleton 12/01/2023 9:57 AM Linn Powell Singleton [facility] 2023-11-20 07:42:29 There are active refills for this [facility] 2023-11-16 14:28:56 Images from the original note were not included. Requested Renewals propranoloL 60 mg 24 hr capsule Possible duplicate: Hover to review recent actions on this medication Sig: Take 1 capsule by mouth in the morning. Disp: 30 capsule Refills: 2 Start: 11/16/2023 Class: eRX Non-formulary For: Essential hypertension Last ordered: 4 months ago (07/13/2023) by Jefferson Christiansen MD Cardiovascular: Beta Blockers [id number]/16/2023 02:27 PM Protocol Details Valid encounter within last 12 months Heart rate within normal limits and completed in the last 12 months To be filled at: [facility] [address] [place] [address] Recent Visits Date Type Provider Dept 09/23/23 Office Visit Bree Brice FNP [facility] 08/19/23 Office Visit Bree Brice FNP [facility] Med 06/17/23 Office Visit Bree Brice FNP [facility] Showing recent visits within past 540 days with a meds authorizing provider and meeting all other requirements Future Appointments Date Type Provider Dept 03/23/24 Appointment Bree Brice FNP [facility] Showing future appointments within next 150 days with a meds authorizing provider and meeting all other requirements [facility] Meghana Grant LVN [facility] 2023-11-16 14:26:34 Copied from [facility] #[id number]. Topic: Clinical - Order >> Nov 16, 2023 2:26 PM Patient Legal Officer wrote: Refill request for Rx propranoloL 60 mg 24 hr capsule - per Neurologist PCP should be filling script [facility] 2023-11-16 10:31:[address] Christiansen for advise on Propranolol. Per Dr. Christiansen, PCP should manage this due to it being ordered for BP. Left VM that I would send request to PCP and they will be able to refill or request pt come in for appt to discuss. (Per CRISTAL with Dr. Christiansen, pt is fluctuating between being hypotensive and hypertensive and symptomatic.) [facility] 2023-11-16 10:30:08 Duplicate request. Closing encounter. [facility] 2023-11-15 14:40:53 Requested authorization for PET scan and CT orders. Adriana Stern 11/15/2023 2:41 PM [facility] Adriana Stern [facility] 2023-11-15 14:39:41 Copied from [facility] #[id number]. Topic: Clinical - Order >> Nov 15, 2023 2:36 PM Patient Legal Officer wrote: Jaron Michaels is a 53 year old male. Pt's calling in regards to a refill request for propranoloL 60 mg 24 hr capsule. Pt is seeking an refill and clarification on dosage and instructions. Please advise. [facility] [address] [place] [id number] ONAL PROTECTION SPECIALIST Daniel Servin [facility] 2023-11-15 11:08:17 [facility] worked 11/02 and 11/05 file. No new orders placed to be requested by [facility] at this time. Shy Ace 11/15/2023 11:12 AM ONAL PROTECTION SPECIALIST Shy Ace [facility] 2023-11-09 15:40:12 Dr. Christiansen, please advise on if Propranolol should be 60mg bid or qd. Ordered on 07/13/23 as qd but per CRISTAL note pt is to continue bid, however it was never ordered as bid. CRISTAL 10/25/23 NOV not scheduled [facility] 2023-11-04 13:50:00 Addended by: AMY WORTHINGTON on: 11/09/2023 01:34 PM Modules accepted: Orders [facility] 2023-11-04 13:50:00 Addended by: AMY WORTHINGTON on: 11/09/2023 01:44 PM Modules accepted: Orders ONAL PROTECTION SPECIALIST [facility] 2023-11-04 13:50:00 Addended by: AMY WORTHINGTON on: 11/15/2023 10:07 AM Modules accepted: Orders ONAL PROTECTION SPECIALIST [facility] 2023-11-02 13:47:06 [facility] worked 10/25 file. No new orders placed for [facility] to request. Adriana Stern 11/02/2023 1:47 PM ONAL PROTECTION SPECIALIST Adriana Stern [facility] 2023-10-27 15:50:59 Received authorization approval from [facility] for [place]. Linn Singleton 10/27/2023 3:51 PM ONAL PROTECTION SPECIALIST Linn Singleton [facility] 2023-10-20 15:35:06 Images from the original note were not included. Can you please place a RTC referral for this patient to see Urology. Thanks Jerry List of last urology visit dx Visit Diagnoses Bone lesion M89.9 Recurrent seizures G40.909 Kidney lesion N28.9 Liver lesion K76.9 ONAL PROTECTION SPECIALIST Jerry Mcintosh MA [facility] 2023-10-20 15:20:49 Sent 10/13 file to [facility]. Requested auth for: Consult/Referral Surgical Oncology Consult/Referral Neurology MR ABDOMEN W WO CONTRAST NM BONE WHOLE BODY Urology follow up scheduled 01/10/23 Adriana Stern 10/20/2023 3:21 PM ONAL PROTECTION SPECIALIST Adriana Stern [facility] 2023-10-20 09:50:26 Attempted to contact patient. Per review with Dr Roberts this patient needs to be transferred to Medical Oncology. Patient states that he wants all communication regarding his care to go through his sister Ann. FYI has been added to chart Informed sister that at this point patient is not a surgical candidate and that he does require additional medical work up. Appointment on 10/29/2023 will be cancelled. Referral placed and notified Medial Oncology team [facility] 2023-10-13 13:45:00 Addended by: AMY WORTHINGTON on: 10/22/2023 12:09 PM Modules accepted: Orders [facility] 2023-10-11 14:45:00 Images from the original note were not included. Patient has been identified by and name and was provided with cup, antiseptic towelette, and clean catch instructions. 1 urine specimen(s) sent. Unpreserved Urine Culture 1 Aptima tube Other urine [facility] 2023-10-08 08:59:28 10/06 file sent to [facility]. Requested auth for CT. Adriana Stern 10/08/2023 9:01 AM [facility] Adriana Stern [facility] 2023-10-06 16:34:34 Addended by: AMY WORTHINGTON on: 10/06/2023 04:34 PM Modules accepted: Orders [facility] 2023-10-06 16:24:19 Patients sister notified of results/recommendations, understanding was verbalized via teach back. [facility] 2023-10-06 16:13:35 Please inform patient that ABXt will be sent to pharmacy and he should be sure to complete urine culture order. I have also placed an order for a CT Urogram that they will need to complete. They may keep appointment with me on Wednesday when faculty is in clinic. They may cancel appointment with faculty. [facility] 2023-10-06 16:13:27 Addended by: AMY WORTHINGTON on: 10/06/2023 04:13 PM Modules accepted: Orders [facility] 2023-10-06 16:02:15 Images from the original note were not included. CHRISTIAN Agudelo 10/06/2023 10:27 AM PERSONAL PROTECTION SPECIALIST Back to Top CHELSEA results as mentioned below IMPRESSION Two large spermatoceles on the right, the largest measures up to 5 cm. A 1.7 cm left-sided spermatocele. Left epididymal head cyst. Continue with Regular OTC analgesia for 2 weeks Scrotal support Regular self testicular exam and call office with any changes/concerns Attend ER if any severe pain Continue with follow up with faculty Patients sister Ann notified of results/recommendations, understanding was verbalized via teach back. Sister states patient complaining of flank pain and experiencing chill/ generalize malaise yesterday. Patient recently positive for urinary tract infection (09/17/23) and treated with antibiotics. States patient did not notice improvement with antibiotics and wanting to know if antibiotics should be ordered again. Patient will report to lab tomorrow morning for urine culture, not able to make it this evening by 5:00 PM. Will route to provider for notification/ recommendations. [facility] 2023-09-29 12:09:03 Images from the original note were not included. Can you place a RTC referral for patient to see urology. Thanks jerry Last urology visit dx Visit Diagnoses Scrotal pain N50.82 Benign prostatic hyperplasia with nocturia N40.1, R35.1 [employer] Jerry L Arnaldo PARTIDA [facility] 2023-09-28 15:36:01 Received authorization approval from [facility] for Linn Singleton 09/28/2023 3:36 PM [facility] 2023-09-28 11:33:03 Faxed 09.17.23 urology post-appointment file to [facility]. Requested new referral for scrotum and contents and follow up for urology. Linn Singleton 09/28/2023 11:33 AM [facility] 13:47:39 [facility] worked 1.01.04 post visit. Linn Singleton 09/23/2023 1:48 PM [facility] 2023-09-17 19:22:55 Patient discharged home with written and verbal instructions. Patient/sister were educated on prescriptions and follow up appointment. Patient verbalized understanding. Patient is alert and oriented to name, time, place, and situation. GCS 15. Respiratory rate even and unlabored, skin warm and dry. Vital sings rechecked and documented. Patient denies pain at the moment. Questions about discharge instructions encouraged. Patient assisted onto wheelchair and vehicle without incident. Falguni Ace RN [facility] 2023-09-17 18:10:40 Patient reassessed/rounding made. Patient denies complains at this time and verbalizes no needs. Remains in no acute distress, stable condition. Patient/sister aware of plan of care. Falguni Ace RN [facility] 2023-09-17 17:40:53 Nohemi (sister) [phone] [facility] 2023-09-17 17:33:15 Patient's name and verified with patient. Sister at bedside with patient. Chief Complaint Patient presents with Seizures Patient was at the lab as he was supposed to provide urine sample. Bystander witnessed seizure activity from patient and rapid response was called - moved to ER via wheelchair without incident. Patient is conscious and alert, with normal/unlabored breathing, and normal color/tone for ethnicity -oriented to name, time, place, and situation. GCS 15. Hard of hearing. Patient reports he was waiting to be called to provide urine sample and next thing he remembers was him being taken to the ER as he had a seizure at the lab . Patient denies nausea, vomiting, chest pain, shortness of breath, chills, fever. Past Medical History: Diagnosis Date Essential (primary) hypertension Obesity (BMI 30-39.9) Seizures 20 years ago No known allergies. Vitals obtained. Assessment performed. IV in place and patent. Placed on continuous spo2/cardiac monitoring, HR 80, sinus rhythm on monitor. Bed low and locked, secured with two rails, call light within reach. Belongings at bedside. Patient aware of plan of care. Falguni Ace RN [facility] 2023-09-17 17:15:12 Patient was waiting at the lab to provide urine sample and bystander mentioned that patient began seizing. Brought to ER via wheelchair. Was Rapid response. Patient is now alert and answering questions appropriately. 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 Hx - pseudo seizures, HTN, bipolar, anxiety G Ace RN [facility] 2023-09-17 17:05:00 Patient was found in chair at the laboratory having a seizure. Patient has a history of seizures. G Saenz RN [facility] 2023-09-17 16:30:00 Patient could not void he said he sit out in the lobby and wait a few min's was alert. Oscar came in and let me know the patient was shaking, the patient has tremors, when I went to check on him he still seemed alert and at the time did not look like a seizure ask if he was ok he nodded his head. Later the nurse from urology stated he was seizure and called a a code yellow. Patient was still out of it when we came to the lobby patient started to open his eye as soon as the er have arrived to take him to the er. We let them know that he was here for a urine and could not go no one was with him at the time it happen he did have a lady with him that came down when the code was called and went with him to the er stated that he has them on and off for 30 years. Mar Méndez 09/17/2023 5:05 PM [facility]
[2025-06-19 12:26] LABS: Absolute Lymphocytes (CBC) 1.4 K/uL (0.7-4.9); Hematocrit 44.1 % (39.6-49.0); Hemoglobin 14.2 g/dL (13.6-17.9); MCH 29.0 pg (27.0-35.0); MCHC 32.2 g/dL (32.0-36.0); MCV 89.8 fL (80-100); MPV 9.9 fL (7.6-11.3); Nucleated RBC Absolute Count 0.0 (0-0); Nucleated Red Blood Cells % 0.0 % (0-0); RBC Red Blood Cell Count 4.90 M/uL (4.33-5.43); White Blood Count 7.80 thou/uL (4.3-10.9)
[2025-06-19 12:31] LABS: PT Prothrombin Time 12.1 SECONDS (10-13.0); Protime INR 1.07
[2025-06-19 12:49] LABS: ALT/SGPT 21 U/L (16-61); AST/SGOT 16 U/L (15-37); Albumin 3.1 g/dL (3.4-5.0); Albumin/Globulin Ratio 0.8 (1.1-1.8); Alkaline Phosphatase 85 U/L (45-117); Anion Gap 8.7 mEq/L (5.0-15.0); BUN Blood Urea Nitrogen 15 mg/dL (7-18); Globulin 3.8 g/dL (2.3-3.5); Glucose Level 106 mg/dL (74-106); Magnesium 1.9 mg/dL (1.6-2.4); NT PRO-BNP 25 pg/mL (<125); Potassium 3.7 mEq/L (3.5-5.1); Troponin High Sensitivity 12.8 pg/mL (<58.9)
[2025-06-19 12:50] LABS: Bilirubin Indirect, Calculated 0.2 mg/dL (0.2-0.8)
--- NOTE | 2025-06-19 12:53 | EDPHYS ---
Physician Documentation [facility] Name: Jaron Huff Age: 54 yrs Sex: Male : 1970 Arrival Date: 06/19/2025 Time: 11:03 Bed 14 Private MD: ED Physician Saida Barrera HPI: 06/19 11:58 This 54 yrs old Male presents to ER via EMS with complaints of weakness. sp3 11:58 54-year-old male with history of psychogenic seizures, known gait abnormality, sp3 hypertension, bipolar disease now presents to the ED for generalized weakness. EMS was originally turned out to help with slow mechanical fall for which she needed assistance standing as he is almost 500 pounds. During the process EMS found blood pressure to be in the 80 systolic which here it is 126/75. Patient stated that he was generally weak and so EMS transported patient here. Please see MDM for continued notes. Review of systems, history and physical limited by patient's psychogenic seizures. Historical: - Allergies: 11:37 No Known Allergies; cm10 - Home Meds: 11:37 amlodipine 5 mg tablet [Active]; escitalopram oxalate 20 mg oral tablet [Active]; cm10 gabapentin 100 mg oral capsule [Active]; losartan 50 mg oral tablet [Active]; methocarbamol 500 mg Oral tablet [Active]; pantoprazole 40 mg oral tablet, delayed release (enteric coated) [Active]; propranolol 20 mg Oral tablet [Active]; tamsulosin 0.4 mg oral capsule [Active]; - PMHx: 11:37 Psychogenic Nonepileptic seizure; Hypertensive disorder; Gait Abnormality; Bipolar cm10 disorder; Anxiety; Depressive disorder; Tubular adenoma of colon; - Immunization history:: Adult Immunizations unknown. - Infectious Disease History:: Denies. - Social history:: Smoking status: unknown. ROS: 12:01 Constitutional: Negative for fever, chills, and weight loss, Eyes: Negative for injury, sp3 pain, redness, and discharge, ENT: Negative for injury, pain, and discharge, Neck: Negative for injury, pain, and swelling, Cardiovascular: Negative for chest pain, palpitations, and edema, Respiratory: Negative for shortness of breath, cough, wheezing, and pleuritic chest pain, Abdomen/GI: Negative for abdominal pain, nausea, vomiting, diarrhea, and constipation, Back: Negative for injury and pain, MS/Extremity: Negative for injury and deformity, Allergy/Immunology: Negative for hives, rash, and allergies, Endocrine: Negative for neck swelling, polydipsia, polyuria, polyphagia, and marked weight changes, 12:01 All other systems are negative, Exam: 12:02 Constitutional: This is a well developed, well nourished patient who is awake, alert, sp3 and in no acute distress. Head/Face: Normocephalic, atraumatic. Eyes: Pupils equal round and reactive to light, extra-ocular motions intact. Lids and lashes normal. Conjunctiva and sclera are non-icteric and not injected. Cornea within normal limits. Periorbital areas with no swelling, redness, or edema. ENT: Nares patent. No nasal discharge, no septal abnormalities noted. External auditory canals are clear. Oropharynx with no redness, swelling, or masses, exudates, or evidence of obstruction, uvula midline. Mucous membranes moist. Neck: Trachea midline, no thyromegaly or masses palpated, and no cervical lymphadenopathy. Supple, full range of motion without nuchal rigidity, or vertebral point tenderness. No Meningismus. Chest/axilla: Normal chest wall appearance and motion. Nontender with no deformity. No lesions are appreciated. Cardiovascular: Regular rate and rhythm with a normal S1 and S2. No gallops, murmurs, or rubs. Normal PMI, no JVD. No pulse deficits. Respiratory: Lungs have equal breath sounds bilaterally, clear to auscultation and percussion. No rales, rhonchi or wheezes noted. No increased work of breathing, no retractions or nasal flaring. Abdomen/GI: Soft, non-tender, with normal bowel sounds. No distension or tympany. No guarding or rebound. No evidence of tenderness throughout. Back: No spinal tenderness. No costovertebral tenderness. Full range of motion. Skin: Warm, dry with normal turgor. Normal color with no rashes, no lesions, and no evidence of cellulitis. MS/ Extremity: Pulses equal, no cyanosis. Neurovascular intact. Full, normal range of motion. 12:02 Neuro: Patient having abnormal shaking movements but still able to track staff in the room. Jaw was not clenched. I believe patient was having psychogenic seizures in the ER. , 12:28 ECG was reviewed by the Attending Physician. EKG demonstrates normal sinus rhythm at 86 sp3 bpm with a first-degree AV block with ND interval 212 and a leftward axis, normal QRS and nonspecific diffuse ST/T changes without evidence of acute ischemia. Vital Signs: 11:19 BP 126 / 75; Pulse 89; Resp 17; Temp 98.8(A); Pulse Ox 100% on 2 lpm NC; Weight 196.86 cm10 kg; Height 6 ft. 4 in. ; Pain 4/10; 12:30 BP 135 / 84; Pulse 83; Resp 18; Pulse Ox 95% on R/A; Pain 0/10; rg5 11:19 Body Mass Index 52.83 (196.86 kg, 193.04 cm) cm10 11:19 Pain Scale: Adult cm10 12:30 Pain Scale: Adult rg5 MDM: 11:06 Medical Screening Exam initiated sp3 12:03 Data reviewed: vital signs, nurses notes, EMS record, old medical records, lab test sp3 result(s). ED course: 54-year-old male with generalized weakness, resolved low blood pressure, no gait abnormality and now psychogenic seizures also known. I believe patient does not have any new acute process. Labs pending. CT scan unavailable secondary to patient's weight of nearly 500 pounds. I also do not leave it is indicated as the seizures were clearly psychogenic. Ativan was given initially 1 dose before history is reviewed on the psychogenic seizures. We will await lab test and monitor patient. Vital signs are normal. Probable discharge home.. 12:52 ED course: All labs normal and blood pressure is normal. Will discharge patient home at sp3 this time.. 06/19 11:11 Order name: Basic Metabolic Panel; Complete Time: 12:50 sp3 06/19 11:11 Order name: CBC with Diff; Complete Time: 12:50 sp3 06/19 11:11 Order name: LFT's; Complete Time: 12:50 sp3 06/19 11:11 Order name: Magnesium; Complete Time: 12:50 sp3 06/19 11:11 Order name: NT PRO-BNP; Complete Time: 12:50 sp3 06/19 11:11 Order name: PT-INR; Complete Time: 12:34 sp3 06/19 11:11 Order name: Troponin HS; Complete Time: 12:50 sp3 06/19 11:11 Order name: Cardiac monitoring; Complete Time: 11:45 sp3 06/19 11:11 Order name: EKG - Nurse/Tech; Complete Time: 12:12 sp3 06/19 11:11 Order name: IV Saline Lock; Complete Time: 11:45 sp3 06/19 11:11 Order name: Labs collected and sent; Complete Time: 11:45 sp3 06/19 11:11 Order name: O2 Per Protocol; Complete Time: 11:45 sp3 06/19 11:11 Order name: O2 Sat Monitoring; Complete Time: 11:45 sp3 Administered Medications: No medications were administered Disposition Summary: 06/19/25 12:52 Discharge Ordered Notes: Location: Home sp3 Condition: Stable sp3 Diagnosis - Mechanical fall, psychogenic seizure, generalized weakness sp3 Followup: sp3 - With: Private Physician - When: Upon discharge from the Emergency Department - Reason: Recheck today's complaints Discharge Instructions: - Discharge Summary Sheet sp3 - Fall Prevention in the Home, Adult, [id number] sp3 Forms: - Medication Reconciliation Form sp3 - Antibiotic Education sp3 - Prescription Opioid Use sp3 - Patient Portal Instructions sp3 - Leadership Thank You Letter sp3 Signatures: Dispatcher [employer] EDSaida Mckeon MD MD sp3 Carissa Ramires RN RN cm10 Corrections: (The following items were deleted from the chart) 11:12 11:12 BASIC METABOLIC PANEL+C.LAB.BRZ ordered. EDMS EDMS 11:12 11:12 CBC+H.LAB.BRZ ordered. EDMS EDMS 11:12 11:12 HEPATIC FUNCTION+C.LAB.BRZ ordered. EDMS EDMS 11:12 11:12 MAGNESIUM+C.LAB.BRZ ordered. EDMS EDMS 11:12 11:12 PROBNP+C.LAB.BRZ ordered. EDMS EDMS 11:12 11:12 PROTIME (+INR)+COAG.LAB.BRZ ordered. EDMS EDMS 11:12 11:12 Troponin High Sensitivity+C.LAB.BRZ ordered. EDMS EDMS 11:12 11:12 Head C Spine MPR Wo Con+CT.RAD.BRZ ordered. EDMS EDMS
--- NOTE | 2025-06-19 12:53 | ER ---
Nurse's Notes [facility] Name: Jaron Huff Age: 54 yrs Sex: Male : 1970 Arrival Date: 06/19/2025 Time: 11:03 Bed 14 Private MD: Diagnosis: Mechanical fall, psychogenic seizure, generalized weakness Presentation: 06/19 11:19 Chief complaint: EMS states: TONED OUT TO PATIENTS HOME FOR A FALL. PT STATES THAT HE cm10 SLID DOWN WHILE USING HIS WALKER. PT COMPLAINING OF INTERMITTENT LEFT SIDED WEAKNESS, HEADACHE AND DIZZINESS. Coronavirus screen: Client denies travel out of the [place] in the last 14 days. Ebola Screen: Patient denies travel to an Ebola-affected area in the 21 days before illness onset. Initial Sepsis Screen: Does the patient meet any 2 criteria? No. Patient's initial sepsis screen is negative. Does the patient have a suspected source of infection? No. Patient's initial sepsis screen is negative. Risk Assessment: Do you want to hurt yourself or someone else? Patient reports no desire to harm self or others. Onset of symptoms was June 19, 2025. 11:19 Method Of Arrival: EMS: [facility] cm10 11:19 Acuity: ALEKSANDRA 3 cm10 11:42 Care prior to arrival: Medication(s) given: Normal saline infusion, IV initiated. 20 cm10 GA, in the left hand, Glucose check: 183. Triage Assessment: 11:19 General: Appears in no apparent distress. comfortable, Behavior is calm, cooperative. cm10 Neuro: No deficits noted. Level of Consciousness is awake, alert, obeys commands, Oriented to person, place, time, situation, Appropriate for age. Cardiovascular: No deficits noted. Respiratory: No deficits noted. Airway is patent Respiratory effort is even, unlabored, Respiratory pattern is regular, symmetrical. Historical: - Allergies: 11:37 No Known Allergies; cm10 - Home Meds: 11:37 amlodipine 5 mg tablet [Active]; escitalopram oxalate 20 mg oral tablet [Active]; cm10 gabapentin 100 mg oral capsule [Active]; losartan 50 mg oral tablet [Active]; methocarbamol 500 mg Oral tablet [Active]; pantoprazole 40 mg oral tablet, delayed release (enteric coated) [Active]; propranolol 20 mg Oral tablet [Active]; tamsulosin 0.4 mg oral capsule [Active]; - PMHx: 11:37 Psychogenic Nonepileptic seizure; Hypertensive disorder; Gait Abnormality; Bipolar cm10 disorder; Anxiety; Depressive disorder; Tubular adenoma of colon; - Immunization history:: Adult Immunizations unknown. - Infectious Disease History:: Denies. - Social history:: Smoking status: unknown. Assessment: 11:21 Neuro: Seizure activity noted at this time. Type of seizure: grand mal seizure. Seizure cm10 lasted approximately 2 minutes. 11:44 Reassessment: Pt awake at this time. Pt answering questions appropriately. cm10 Vital Signs: 11:19 BP 126 / 75; Pulse 89; Resp 17; Temp 98.8(A); Pulse Ox 100% on 2 lpm NC; Weight 196.86 cm10 kg; Height 6 ft. 4 in. ; Pain 4/10; 12:30 BP 135 / 84; Pulse 83; Resp 18; Pulse Ox 95% on R/A; Pain 0/10; rg5 11:19 Body Mass Index 52.83 (196.86 kg, 193.04 cm) cm10 11:19 Pain Scale: Adult cm10 12:30 Pain Scale: Adult rg5 ED Course: 11:03 Patient arrived in ED. bd 11:05 Saida Barrera MD is Attending Physician. sp3 11:17 Carissa Ramires, RN is Primary Nurse. cm10 11:37 Triage completed. cm10 11:43 Arm band placed on right wrist. Patient placed in an exam room, on a stretcher. cm10 11:43 Patient has correct armband on for positive identification. Bed in low position. Call cm10 light in reach. Side rails up X2. Client placed on continuous cardiac and pulse oximetry monitoring. NIBP monitoring applied. laboratory monitor on. 11:43 Initial lab(s) drawn, by me, sent to lab. Inserted saline lock: 20 gauge in right hand, cm10 using aseptic technique. Blood collected. Flushed with 10 mL NS. 11:43 Maintain EMS IV. Dressing intact. Good blood return noted. Site clean \T\ dry. Gauge \T\ cm 10 site: 20g left hand. Flushed with 10 mL NS. 12:12 EKG done, by ED staff, reviewed by Saida Barrera MD. ts3 Administered Medications: No medications were administered Outcome: 12:52 Discharge ordered by MD. blas3 13:43 Patient left the ED. ss Signatures: Cleo Mercado Shelby, RN RN ss Saida Barrera MD MD sp3 Carissa Ramires RN RN cm10 Conner Gonzalez RN RN rg5 Eliana Olivarez [facility] [[email or web address]]
[2025-06-19 13:48] VITALS: TEMP 98.8
[2025-06-19 13:49] VITALS: BP 135/84; O2SAT 95
== END 2025-06-19 13:43 | disposition home or self-care (01) ==
LOC: ER 11:06
DX: F44.5 Conversion disorder with seizures or convulsions (principal); R53.1 Weakness; W18.30XA Fall on same level, unspecified, initial encounter; I10 Essential (primary) hypertension
CPT/HCPCS: 36415; 80048; 80076; 83735; 83880; 84484; 85025; 85610; 93005; 99284